=== PATIENT | female | born 1935 | race Caucasian/White ===

== ENCOUNTER → 2016-10-13 | Outpatient (CLI) | payer MEDICARE ==
[2016-10-13 12:09] LABS: Blood Urea Nitrogen 15 mg/dL (7-17); Non-African American GFR(MDRD) >60 (>60 ml/min/1.73 sqM)
--- NOTE | 2016-10-13 13:59 | CT ---
EXAMINATION TYPE: CT abdomen pelvis wo/w con DATE OF EXAM: 10/13/2016 1:33 PM REFERENCE: Previous study dated 08/13/2015. HISTORY: R63.4 weight loss, R19.7 diarrhea HISTORY: irregular bowels and abdomen distension for 2-3 years post illness from C-Diff REFERENCE: NONE CT DLP: 2336 mGy Automated exposure control for dose reduction was used. TECHNIQUE: Helical acquisition through the abdomen and pelvis was obtained following the oral ingesti on of with Oral Contrast and with and without the intravenous administration of 100 mL of Omnipaque 3 00. The data was reformatted in axial, coronal and sagittal projections. FINDINGS: There is atelectatic change at the right lung base. There is a partial eventration of the right hemidiaphragm. No pleural or pericardial fluid is seen. The heart is enlarged. Within the abdomen, the liver is enlarged measuring 20 cm. The gallbladder is been removed. There is mild central biliary dilatation. The spleen appears normal. Both adrenal glands appear normal. Both kidneys demonstrate function and appear morphologically normal. The pancreas is unremarkable. There is moderate atheromatous calcification of the visualized arterial tree. There is no significant retroperitoneal, iliac or inguinal adenopathy. The bladder is not distended. The bladder wall appears thickened. This may be secondary to lack of di stention. The uterus and ovaries are not visualized. There is diverticular change in the sigmoid colon. There is mucosal thickening throughout the sigmoid region. I do not see evidence of diverticulitis. The appendix is normal. Small bowel loops are unremarkable. There is no free fluid and no free air identified. There is evidence of mild osteitis pubis. There are degenerative changes within the hips. There is fa cet arthropathy at L5-S1. There is diffuse degenerative disc disease. There is a degenerative grade 1 spondylolisthesis of L5 on S1. IMPRESSION: 1. CARDIOMEGALY. 2. HEPATOMEGALY. 3. BOWEL WALL THICKENING INVOLVING THE SIGMOID COLON. PLEASE CORRELATE CLINICALLY TO EXCLUDE COLITIS. 4. DIVERTICULOSIS OF THE SIGMOID COLON. 5. 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
== END | disposition home or self-care (01) ==
LOC: RADCTMAIN 11:16
PROVIDERS: ATTEND Internal Medicine Geriatric Medicine
DX: K57.30 Diverticulosis of large intestine without perforation or abscess without bleeding (principal); R16.0 Hepatomegaly, not elsewhere classified; Z79.82 Long term (current) use of aspirin
CPT/HCPCS: 82565; 84520; 74178; 36415; Q9967

== ENCOUNTER → 2016-11-21 | Outpatient (CLI) | payer MEDICARE ==
[2016-11-21 11:22] VITALS: BMI 22.1
== END | disposition home or self-care (01) ==
LOC: MNTWWP 10:54
PROVIDERS: ATTEND Internal Medicine Gastroenterology
DX: K58.0 Irritable bowel syndrome with diarrhea (principal)
CPT/HCPCS: 97802

== ENCOUNTER 2017-03-10 15:31 | Emergency (ER) | payer OTHER, MEDICARE ==
[2017-03-10 15:42] VITALS: RESP 18
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
[2017-03-10 17:34] VITALS: BP 112/58; PULSE 61; TEMP 97.6
== END 2017-03-10 17:34 | disposition home or self-care (01) ==
LOC: EC 15:31
DX: S62.306A Unspecified fracture of fifth metacarpal bone, right hand, initial encounter for closed fracture (principal); I48.91 Unspecified atrial fibrillation; E78.5 Hyperlipidemia, unspecified; I10 Essential (primary) hypertension; I25.2 Old myocardial infarction; E07.9 Disorder of thyroid, unspecified; Z95.5 Presence of coronary angioplasty implant and graft; Z98.890 Other specified postprocedural states; Z87.891 Personal history of nicotine dependence; Z79.01 Long term (current) use of anticoagulants; Z79.82 Long term (current) use of aspirin; Z79.899 Other long term (current) drug therapy; Z88.0 Allergy status to penicillin; V89.9XXA Person injured in unspecified vehicle accident, initial encounter; Y92.410 Unspecified street and highway as the place of occurrence of the external cause
CPT/HCPCS: 29125; 70450; 72125; 99285

== ENCOUNTER 2017-12-15 06:19 | Observation (INO) | payer MEDICARE ==
[2017-12-15] MEDS ORDERED: NITROGLYCERIN OINT 1 INCH/GM PACKET TOPICAL STA (06:21)
[2017-12-15] MEDS ORDERED: ASPIRIN 81 MG PO STA (06:21)
--- NOTE | 2017-12-15 06:24 | ED ---
General Adult HPI - General Source: RN notes reviewed <Merrill Bradshaw - Last Filed: 12/15/17 06:29> <Dariel Torres - Last Filed: 12/15/17 10:36> - General Stated complaint: Chest Pain Time Seen by Provider: 12/15/17 06:20 - History of Present Illness Initial comments: This is an 82-year-old female with past medical history significant for high cholesterol high blood pressure and a previous stent. Patient also has atrial fibrillation and she is on Coumadin. Patient comes in today because she had chest pain at home last month 15 minutes. Patient states she was also mildly short of breath and clammy when it occurred. Patient states the last time she had chest pain and needed a stent her symptoms were very mild as well. Patient denies any abdominal pain patient denies any vomiting but he is mildly nauseated. Patient denies any recent fever chills or cough. Patient denies headache patient denies numbness weakness. Patient denies lightheadedness dizziness or near syncopal episode. (Merrill Bradshaw) - Related Data Home Medications Medication Instructions Recorded Confirmed Atenolol [Tenormin] 25 mg PO QAM 12/01/13 03/10/17 Butalb/Acetaminophen/Caffeine 1 tab PO Q6H PRN 12/01/13 03/10/17 [Fioricet 50-325-40 mg Tablet] Levothyroxine Sodium [Synthroid] 50 mcg PO QAM 12/01/13 03/10/17 Simvastatin [Zocor] 20 mg PO HS 12/01/13 03/10/17 Warfarin [Coumadin] 5 mg PO SUMOTUWEFRSA 12/01/13 03/10/17 Gabapentin [Neurontin] 100 mg PO BID 07/20/15 03/10/17 Aspirin 81 mg PO QAM 08/09/15 03/10/17 Famotidine [Pepcid] 20 mg PO HS 08/09/15 03/10/17 Warfarin [Coumadin] 2.5 mg PO TH 08/09/15 03/10/17 Propafenone Sr [Rythmol Sr] 225 mg PO BID 03/10/17 03/10/17 Allergies Allergy/AdvReac Type Severity Reaction Status Date / Time Penicillins Allergy Anaphylaxis Verified 03/10/17 16:16 Review of Systems ROS Other: All systems not noted in ROS Statement are negative. <Merrill Bradshaw - Last Filed: 12/15/17 06:29> ROS Other: All systems not noted in ROS Statement are negative. <Dariel Torres - Last Filed: 12/15/17 10:36> ROS Statement: Those systems with pertinent positive or pertinent negative responses have been documented in the HPI. Past Medical History Past Medical History: Atrial Fibrillation, Hyperlipidemia, Hypertension, Myocardial Infarction ([place]), Thyroid Disorder Last Myocardial Infarction Date:: 2006 History of Any Multi-Drug Resistant Organisms: None Reported Past Surgical History: Cholecystectomy, Heart Catheterization With Stent, Hysterectomy, Orthopedic Surgery Additional Past Surgical History / Comment(s): left foot reconstruction surgery , pubic vaginal sling, partial hysterectomy, colonoscopy. Date of Last Stent Placement:: 2006 Past Psychological History: No Psychological Hx Reported Smoking Status: Former smoker Past Alcohol Use History: None Reported Past Drug Use History: None Reported - Past Family History Mother Family Medical History: Coronary Artery Disease (CAD) (Mother at age 94 from CAD) Father Family Medical History: Coronary Artery Disease (CAD) (Father at age of 87 from CAD) Son(s) Family Medical History: COPD (Patient has one son with COPD) Additional Family Medical History / Comment(s): Her maternal grandfather at age 54 from [place] <Merrill Bradshaw - Last Filed: 12/15/17 06:29> General Exam <Merrill Bradshaw - Last Filed: 12/15/17 06:29> <Dariel Torres - Last Filed: 12/15/17 10:36> - General Exam Comments Initial Comments: GENERAL: Patient is well-developed and well-nourished. Patient is nontoxic and well- hydrated and is in mild distress. ENT: Neck is soft and supple. No significant lymphadenopathy is noted. Oropharynx is clear. Moist mucous membranes. Neck has full range of motion without eliciting any pain. EYES: The sclera were anicteric and conjunctiva were pink and moist. Extraocular movements were intact and pupils were equal round and reactive to light. Eyelids were unremarkable. PULMONARY: Unlabored respirations. Good breath sounds bilaterally. No audible rales rhonchi or wheezing was noted. CARDIOVASCULAR: There is a regular rate and rhythm without any murmurs gallops or rubs. ABDOMEN: Soft and nontender with normal bowel sounds. No palpable organomegaly was noted. There is no palpable pulsatile mass. SKIN: Skin is clear with no lesions or rashes and otherwise unremarkable. NEUROLOGIC: Patient is alert and oriented x3. Cranial nerves II through XII are grossly intact. Motor and sensory are also intact. Normal speech, volume and content. Symmetrical smile. MUSCULOSKELETAL: Normal extremities with adequate strength and full range of motion. LYMPHATICS: No significant lymphadenopathy is noted PSYCHIATRIC: Normal psychiatric evaluation. Normal interpersonal interactions appears functionally intact in deals appropriately with others. No signs of depression. No signs of anxiety. (Merrill Bradshaw) Vital Signs 12/15/17 12/15/17 06:20 07:13 Temperature 98.2 F Pulse Rate 71 60 Respiratory 18 16 Rate Blood Pressure 195/79 144/67 O2 Sat by Pulse 96 93 L Oximetry Medical Decision Making <Merrill Bradshaw - Last Filed: 12/15/17 06:29> - Lab Data Result diagrams: 12/15/17 06:34 12/15/17 06:34 <Dariel Torres - Last Filed: 12/15/17 10:36> - Medical Decision Making EKG shows sinus bradycardia at 59 bpm ME interval is 218 QRS is 114 QT interval is 442 QTC is 437. EKG shows no ST segment elevation or depression. Dr. Torres will be taking over the care of this patient at 7 AM (Merrill Bradshaw) 82-year-old presenting with chest pain. Patient's laboratory studies are reviewed, normal CBC, INR mildly subtherapeutic at 1.7, troponin is negative 2. Chest x-ray shows cardiomegaly with no focal pneumonia or acute findings. Patient is chest pain-free on reevaluation, she will be admitted for serial enzymes and cardiology consultation. (Dariel Torres) - Lab Data Lab Results 12/15/17 12/15/17 12/15/17 Range/Units 06:34 06:34 06:34 WBC 7.7 (3.8-10.6) k/uL RBC 3.98 (3.80-5.40) m/uL Hgb 12.5 (11.4-16.0) gm/dL Hct 36.5 (34.0-46.0) % MCV 91.6 (80.0-100.0) fL MCH 31.5 (25.0-35.0) pg MCHC 34.4 (31.0-37.0) g/dL RDW 12.6 (11.5-15.5) % Plt Count 246 (150-450) k/uL Neutrophils % 60 % Lymphocytes % 25 % Monocytes % 9 % Eosinophils % 3 % Basophils % 0 % Neutrophils # 4.6 (1.3-7.7) k/uL Lymphocytes # 1.9 (1.0-4.8) k/uL Monocytes # 0.7 (0-1.0) k/uL Eosinophils # 0.3 (0-0.7) k/uL Basophils # 0.0 (0-0.2) k/uL PT (9.0-12.0) sec INR (<1.2) APTT (22.0-30.0) sec Sodium 140 (137-145) mmol/L Potassium 4.1 (3.5-5.1) mmol/L Chloride 104 (98-107) mmol/L Carbon Dioxide 26 (22-30) mmol/L Anion Gap 10 mmol/L BUN 21 H (7-17) mg/dL Creatinine 0.67 (0.52-1.04) mg/dL Est GFR (CKD-EPI)AfAm >90 (>60 ml/min/1.73 sqM) Est GFR (CKD-EPI)NonAf 83 (>60 ml/min/1.73 sqM) Glucose 98 (74-99) mg/dL Calcium 9.2 (8.4-10.2) mg/dL Magnesium 2.2 (1.6-2.3) mg/dL Total Bilirubin 0.3 (0.2-1.3) mg/dL AST 27 (14-36) U/L ALT 31 (9-52) U/L Alkaline Phosphatase 93 (38-126) U/L Total Creatine Kinase 144 H (30-135) U/L CK-MB (CK-2) 2.2 (0.0-2.4) ng/mL CK-MB (CK-2) Rel Index 1.5 Troponin I <0.012 (0.000-0.034) ng/mL Total Protein 6.7 (6.3-8.2) g/dL Albumin 4.0 (3.5-5.0) g/dL 12/15/17 12/15/17 Range/Units 06:34 09:23 WBC (3.8-10.6) k/uL RBC (3.80-5.40) m/uL Hgb (11.4-16.0) gm/dL Hct (34.0-46.0) % MCV (80.0-100.0) fL MCH (25.0-35.0) pg MCHC (31.0-37.0) g/dL RDW (11.5-15.5) % Plt Count (150-450) k/uL Neutrophils % % Lymphocytes % % Monocytes % % Eosinophils % % Basophils % % Neutrophils # (1.3-7.7) k/uL Lymphocytes # (1.0-4.8) k/uL Monocytes # (0-1.0) k/uL Eosinophils # (0-0.7) k/uL Basophils # (0-0.2) k/uL PT 15.3 H (9.0-12.0) sec INR 1.7 H (<1.2) APTT 27.4 (22.0-30.0) sec Sodium (137-145) mmol/L Potassium (3.5-5.1) mmol/L Chloride (98-107) mmol/L Carbon Dioxide (22-30) mmol/L Anion Gap mmol/L BUN (7-17) mg/dL Creatinine (0.52-1.04) mg/dL Est GFR (CKD-EPI)AfAm (>60 ml/min/1.73 sqM) Est GFR (CKD-EPI)NonAf (>60 ml/min/1.73 sqM) Glucose (74-99) mg/dL Calcium (8.4-10.2) mg/dL Magnesium (1.6-2.3) mg/dL Total Bilirubin (0.2-1.3) mg/dL AST (14-36) U/L ALT (9-52) U/L Alkaline Phosphatase (38-126) U/L Total Creatine Kinase (30-135) U/L CK-MB (CK-2) (0.0-2.4) ng/mL CK-MB (CK-2) Rel Index Troponin I <0.012 (0.000-0.034) ng/mL Total Protein (6.3-8.2) g/dL Albumin (3.5-5.0) g/dL Disposition <Merrill Bradshaw - Last Filed: 12/15/17 06:29> Is patient prescribed a controlled substance at d/c from ED?: No Decision to Admit Reason: Admit from EC Decision Date: 12/15/17 Decision Time: 10:36 <Dariel Torres - Last Filed: 12/15/17 10:36> Clinical Impression: Chest pain Disposition: ADMITTED IP TO THIS HOSP Condition: Stable Referrals: Orlando Vance MD [Primary Care Provider] - 1-2 days
[2017-12-15 06:48] LABS: Basophils % (A) 0 %; Eosinophils # (A) 0.3 k/uL (0-0.7); Eosinophils % (A) 3 %; HCT 36.5 % (34.0-46.0); HGB 12.5 gm/dL (11.4-16.0); Lymphocytes # (A) 1.9 k/uL (1.0-4.8); Lymphocytes % (A) 25 %; MCH 31.5 pg (25.0-35.0); MCHC 34.4 g/dL (31.0-37.0); MCV 91.6 fL (80.0-100.0); Monocytes # (A) 0.7 k/uL (0-1.0); Monocytes % (A) 9 %; Neutrophils # (A) 4.6 k/uL (1.3-7.7); Neutrophils % (A) 60 %; Platelet Count 246 k/uL (150-450); RBC 3.98 m/uL (3.80-5.40); RDW 12.6 % (11.5-15.5); WBC 7.7 k/uL (3.8-10.6)
--- NOTE | 2017-12-15 06:54 | XR ---
EXAMINATION TYPE: XR chest 2V DATE OF EXAM: 12/15/2017 COMPARISON: 12/01/2013 HISTORY: Chest pain TECHNIQUE: Frontal and lateral views of the chest are obtained. FINDINGS: Heart is enlarged. There is no heart failure. There is some mild reticular density in the lingula left upper lobe. Thoracic aorta is atheromatous. There are chest leads. There is no pleural e ffusion. IMPRESSION: Cardiomegaly. No active cardiopulmonary disease. Mild lingula scarring is unchanged.
[2017-12-15 06:58] LABS: INR 1.7 (<1.2); Partial Thromboplastin Time 27.4 sec (22.0-30.0); Prothrombin Time 15.3 sec (9.0-12.0)
[2017-12-15 07:15] LABS: Creatine Kinase 144 U/L (30-135)
[2017-12-15 07:16] LABS: ALT 31 U/L (9-52); AST 27 U/L (14-36); Alkaline Phosphatase 93 U/L (38-126); Anion Gap 10 mmol/L; Blood Urea Nitrogen 21 mg/dL (7-17); Calcium 9.2 mg/dL (8.4-10.2); Carbon Dioxide 26 mmol/L (22-30); Chloride 104 mmol/L (98-107); Glucose 98 mg/dL (74-99); Magnesium 2.2 mg/dL (1.6-2.3); Potassium 4.1 mmol/L (3.5-5.1); Sodium 140 mmol/L (137-145); Total Bilirubin 0.3 mg/dL (0.2-1.3); Total Protein 6.7 g/dL (6.3-8.2)
[2017-12-15 07:27] LABS: Creatine Kinase MB 2.2 ng/mL (0.0-2.4); Troponin I <0.012 ng/mL (0.000-0.034)
[2017-12-15] MEDS ORDERED: NALOXONE 0.4 MG/ML 1 ML VIAL IV PRN (10:31)
[2017-12-15] MEDS ORDERED: BUTALB/APAP/CAFF 50-325-40MG TAB PO PRN ×2 (10:32→16:56)
[2017-12-15 12:24] VITALS: BMI 23.6
[2017-12-15] MEDS: GABAPENTIN 100 MG CAP PO SCH ×3 (12:28→20:39)
[2017-12-15] MEDS: PROPAFENONE 150 MG TAB PO SCH ×3 (12:29→20:40)
[2017-12-15] MEDS: LEVOTHYROXINE 50 MCG TAB PO SCH (12:29)
[2017-12-15] MEDS: ATENOLOL 25 MG TAB PO SCH (12:33)
[2017-12-15] MEDS: HYDROcodone/APAP 10-325MG 1 EACH TAB PO PRN ×3 (12:33→22:24)
[2017-12-15 12:50] LABS: Creatine Kinase 126 U/L (30-135)
[2017-12-15 13:03] LABS: Creatine Kinase MB 1.8 ng/mL (0.0-2.4); Troponin I <0.012 ng/mL (0.000-0.034)
--- NOTE | 2017-12-15 14:34 | P.HPIM ---
History of Present Illness H&P Date: 12/15/17 This is a 80-year-old female one of Dr. Vance with a previous medical history significant for coronary artery disease status post stent placement back in 2006 of circumflex , atrial fibrillation, hyperlipidemia, hypertension and hypertensive cardiovascular disease, hypothyroidism, patient was in her usual state of health until yesterday 12 AM midnight and patient started having an acute sudden chest pain, midsternal in location that lasted for 15 minutes. Patient describes it as shocklike sensation which were got better by itself associated with clammy hands and shortness of breath. Patient states she had similar symptoms when she had a stent placed in 2006. She denies any cough or shortness of breath for the past week denies any recent fever, headache or numbness or tingling of the lower extremity. Troponin 3 negative in the ER. EKG suggested chronic changes of left ventricular hypertrophy with first-degree AV block. Patient states she had stress test done 3 weeks ago but is not sure of the results. Cardiology has been consulted patient will be Nothing by mouth after midnight for possible cardiac cath tomorrow. Review of Systems Constitutional: Denies chills, Denies fever, Denies lethargy, Denies malaise, Denies poor appetite, Denies weakness, Denies weight loss Eyes: denies decreased vision, denies diplopia, denies discharge, denies pain Ears: deny: decreased hearing Ears, nose, mouth and throat: Denies dental pain, Denies headache, Denies nasal discharge, Denies nose pain Cardiovascular: Endorses chest pain, Denies decreased exercise tolerance, Denies edema, Denies high blood pressure, endorses irregular heart beat, Denies palpitations, Denies paroxysmal nocturnal dyspnea, Denies rapid heart beat, Denies shortness of breath Respiratory: Denies congestion, Denies cough, Denies cough with sputum, Denies dyspnea, Denies home oxygen, Denies wheezing Gastrointestinal: Denies abdominal pain, Denies change in bowel habits, Denies coffee ground emesis, Denies early satiety, Denies excessive gas, Denies heartburn, Denies hematemesis, Denies hematochezia, Denies loss of appetite, Denies nausea, Denies vomiting Genitourinary: Denies dysuria, Denies flank pain, Denies kidney stones, Denies menorrhagia, Denies urgency, Denies urinary frequency Musculoskeletal: Denies gait dysfunction, Denies limitation of motion, Denies morning stiffness, Denies muscle cramps Integumentary: Denies rash, Denies wounds, Denies brittle nails, Denies change in hair/nails, Denies darkening of skin Neurological: Denies balance difficulties, Denies change in speech, Denies double vision, Denies gait dysfunction, Denies loss of vision, Denies motor disturbance, Denies numbness, Denies paralysis, Denies paresthesias, Denies seizures Psychiatric: Denies anxiety, Denies depression Endocrine: Denies excessive sweating, Denies excessive thirst, Denies high blood sugars, Denies palpitations Hematologic/Lymphatic: Denies easy bruising, Denies lymphadenopathy Past Medical History Past Medical History: Atrial Fibrillation, Hyperlipidemia, Hypertension, Myocardial Infarction ([place]), Thyroid Disorder Additional Past Medical History / Comment(s): IBS, acute coloitis, 3 feces transplants at [facility] Last Myocardial Infarction Date:: 2006 History of Any Multi-Drug Resistant Organisms: C-DIFF Date of last positivie culture/infection: 2014 MDRO Source:: stool Past Surgical History: Cholecystectomy, Heart Catheterization With Stent, Hysterectomy, Orthopedic Surgery Additional Past Surgical History / Comment(s): left foot reconstruction surgery , pubic vaginal sling, partial hysterectomy, colonoscopy. 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 She denies medical marijuana, marijuana, street drug or alcohol use. Patient is currently living alone. Past Drug Use History: None Reported - Past Family History Mother Family Medical History: Coronary Artery Disease (CAD) Father Family Medical History: Coronary Artery Disease (CAD) Son(s) Family Medical History: COPD Additional Family Medical History / Comment(s): Her maternal grandfather at age 54 from [place] Medications and Allergies Home Medications Medication Instructions Recorded Confirmed Type Atenolol [Tenormin] 25 mg PO QAM 12/01/13 12/15/17 History Butalb/Acetaminophen/Caffeine 1 tab PO Q6H PRN 12/01/13 12/15/17 History [Fioricet 50-325-40 mg Tablet] Levothyroxine Sodium [Synthroid] 50 mcg PO QAM 12/01/13 12/15/17 History Simvastatin [Zocor] 20 mg PO HS 12/01/13 12/15/17 History Warfarin [Coumadin] 5 mg PO SUMOTUWEFRSA 12/01/13 03/10/17 History Gabapentin [Neurontin] 100 mg PO TID 07/20/15 12/15/17 History Famotidine [Pepcid] 20 mg PO HS 08/09/15 12/15/17 History Warfarin [Coumadin] 2.5 mg PO TH 08/09/15 03/10/17 History Propafenone Sr [Rythmol Sr] 225 mg PO BID 03/10/17 12/15/17 History HYDROcodone/APAP 10-325MG [[place] 1 tab PO Q6HR PRN 12/15/17 12/15/17 History 10-325] Allergies Allergy/AdvReac Type Severity Reaction Status Date / Time amoxicillin Allergy Anaphylaxis Verified 12/15/17 12:25 Penicillins Allergy Anaphylaxis Verified 03/10/17 16:16 Physical Exam Vitals: Vital Signs Temp Pulse Pulse Resp BP BP Pulse Ox 12/15/17 11:33 99.0 F 66 18 148/67 95 12/15/17 11:00 98.1 F 58 L 20 141/70 98 12/15/17 07:13 60 16 144/67 93 L 12/15/17 06:20 98.2 F 71 18 195/79 96 Intake and Output 12/14/17 12/15/17 12/15/17 22:59 06:59 14:59 Intake Total 240 Balance 240 Intake: Oral 240 Other: Weight 72.575 kg 72.575 kg - Constitutional General appearance: cooperative, no acute distress, obese - EENT Eyes: anicteric sclerae, PERRLA, normal appearance ENT: hearing grossly normal - Neck Neck: no lymphadenopathy, normal ROM, no other, no rigidity, no stridor, no thyromegaly - Respiratory Respiratory: bilateral: CTA, negative: diminished, dullness, rales, rhonchi - Cardiovascular Rhythm: regular Heart sounds: normal: S1, S2 Abnormal Heart Sounds: no systolic murmur, no diastolic murmur, no rub, no S3 Gallop, no S4 Gallop, no click, no other - Gastrointestinal General gastrointestinal: normal bowel sounds, soft - Integumentary Integumentary: no rash - Neurologic Neurologic: CNII-XII intact - Musculoskeletal Musculoskeletal: gait normal, strength equal bilaterally - Psychiatric Psychiatric: A&O x's 3, appropriate affect Results CBC & Chem 7: 18 06:34 18 06:34 Labs: Abnormal Lab Results - Last 24 Hours (Table) 12/15/17 12/15/17 12/15/17 Range/Units 06:34 06:34 06:34 PT 15.3 H (9.0-12.0) sec INR 1.7 H (<1.2) BUN 21 H (7-17) mg/dL Total Creatine Kinase 144 H (30-135) U/L Thrombosis Risk Factor Assmnt - DVT/VTE Prophylaxis DVT/VTE Prophylaxis: Pharmacologic Prophylaxis ordered - Choose All That Apply Any of the Below Risk Factors Present?: Yes Each Risk Factor Represents 3 Points: Age 75 years or older Thrombosis Risk Factor Assessment Total Risk Factor Score: 3 Thrombosis Risk Factor Assessment Level: Moderate Risk Assessment and Plan Plan: 1. Acute chest pain likely cardiac . Patient has risk factors including former smoking, hypertension, hyperlipidemia, family history of coronary artery disease in mom and dad with recent cardiac cath results of which are unknown. Patient was planning to see Dr. Lowe in 1 week. Continue aspirin, atenolol, atorvastatin. Cardiology consult. Nothing by mouth after midnight. Recent cardiac cardiac cath in 2006 suggest moderate disease in the LAD, circumflex artery was stented during that cardiac cath. 2. History of coronary artery disease status post PCI. Continue the patient on atenolol 25 mg orally once every day, simvastatin 20 mg orally bedtime at home. 3. Atrial fibrillation. Continue Coumadin 5 minute gram of the day and 2.5 mg PT and INR is subtherapeutic. Continue propafenone 225 mg by mouth twice every day. 4. Hyperlipidemia. Continue simvastatin 20 mg orally at bedtime. 5. Hypothyroidism. Continue Synthroid 50 g orally once every day. 6. Hypertension and hypertensive cardiovascular disease. Continue atenolol 25 mg orally once every day. 7. Chronic low back pain with chronic pain syndrome. Continue [place] 7.5/325 one tablet every 4 hours as needed. We will continue gabapentin 100 mg orally 3 times every day. 8. Chronic headache. h old Fioricet. 9. DVT prophylaxis. Already on Coumadin. 10. GI prophylaxis. Pepcid 20 mg orally twice every day. 11. Full code.
[2017-12-15] MEDS ORDERED: ACETAMINOPHEN TAB 325 MG TAB PO PRN (16:04)
[2017-12-15] MEDS ORDERED: WARFARIN 5 MG TAB PO SCH (18:00)
[2017-12-15 18:38] LABS: Creatine Kinase 122 U/L (30-135)
[2017-12-15 18:51] LABS: Creatine Kinase MB 1.7 ng/mL (0.0-2.4); Troponin I <0.012 ng/mL (0.000-0.034)
[2017-12-15] MEDS ORDERED: FAMOTIDINE 20 MG TAB PO SCH (21:00)
[2017-12-15] MEDS ORDERED: GABAPENTIN 100 MG CAP PO SCH (21:00)
[2017-12-15] MEDS ORDERED: ATORVASTATIN 10 MG TAB PO SCH (21:00)
[2017-12-15] MEDS ORDERED: PROPAFENONE 150 MG TAB PO SCH (22:00)
[2017-12-16] MEDS: HYDROcodone/APAP 10-325MG 1 EACH TAB PO PRN (01:57)
[2017-12-16] MEDS ORDERED: LEVOTHYROXINE 50 MCG TAB PO SCH (06:30)
[2017-12-16] MEDS: LEVOTHYROXINE 50 MCG TAB PO SCH (06:57)
[2017-12-16 08:04] LABS: Basophils % (A) 1 %; Eosinophils # (A) 0.2 k/uL (0-0.7); Eosinophils % (A) 3 %; HCT 39.6 % (34.0-46.0); HGB 13.4 gm/dL (11.4-16.0); Lymphocytes # (A) 2.3 k/uL (1.0-4.8); Lymphocytes % (A) 34 %; MCH 31.2 pg (25.0-35.0); MCHC 33.8 g/dL (31.0-37.0); MCV 92.2 fL (80.0-100.0); Monocytes # (A) 0.7 k/uL (0-1.0); Monocytes % (A) 10 %; Neutrophils # (A) 3.3 k/uL (1.3-7.7); Neutrophils % (A) 50 %; Platelet Count 265 k/uL (150-450); RDW 12.5 % (11.5-15.5); WBC 6.7 k/uL (3.8-10.6)
[2017-12-16 08:09] LABS: INR 2.2 (<1.2)
[2017-12-16 08:16] LABS: ALT 33 U/L (9-52); AST 27 U/L (14-36); Alkaline Phosphatase 91 U/L (38-126); Anion Gap 10 mmol/L; Blood Urea Nitrogen 13 mg/dL (7-17); Calcium 9.6 mg/dL (8.4-10.2); Carbon Dioxide 25 mmol/L (22-30); Chloride 105 mmol/L (98-107); Glucose 95 mg/dL (74-99); Potassium 4.6 mmol/L (3.5-5.1); Sodium 140 mmol/L (137-145); Total Bilirubin 0.3 mg/dL (0.2-1.3); Total Protein 6.7 g/dL (6.3-8.2)
[2017-12-16 08:23] VITALS: RESP 18
[2017-12-16] MEDS: ATENOLOL 25 MG TAB PO SCH (08:40)
[2017-12-16] MEDS: GABAPENTIN 100 MG CAP PO SCH (08:40)
[2017-12-16] MEDS: PROPAFENONE 150 MG TAB PO SCH (08:40)
[2017-12-16] MEDS ORDERED: ATENOLOL 25 MG TAB PO SCH (09:00)
[2017-12-16] MEDS ORDERED: ASPIRIN 81 MG PO SCH (09:00)
--- NOTE | 2017-12-16 10:20 | P.CRDCN ---
History of Present Illness History of present illness: Patient admitted with heaviness in his chest with normal cardiac enzymes normal ECG and some fluttering in the chest. Recent fall cardiac stress test in the office was normal. No evidence for atrial fibrillation. She will go home today in follow-up as an outpatient were Dr. Lowe. Please see full dictation by nurse practitioner Past Medical History Past Medical History: Atrial Fibrillation, Hyperlipidemia, Hypertension, Myocardial Infarction ([place]), Thyroid Disorder Additional Past Medical History / Comment(s): IBS, acute coloitis, 3 feces transplants at [facility] Last Myocardial Infarction Date:: 2006 History of Any Multi-Drug Resistant Organisms: C-DIFF Date of last positivie culture/infection: 2014 MDRO Source:: stool Past Surgical History: Cholecystectomy, Heart Catheterization With Stent, Hysterectomy, Orthopedic Surgery Additional Past Surgical History / Comment(s): left foot reconstruction surgery , pubic vaginal sling, partial hysterectomy, colonoscopy. 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 She denies medical marijuana, marijuana, street drug or alcohol use. Patient is currently living alone. Past Drug Use History: None Reported - Past Family History Mother Family Medical History: Coronary Artery Disease (CAD) Father Family Medical History: Coronary Artery Disease (CAD) Son(s) Family Medical History: COPD Additional Family Medical History / Comment(s): Her maternal grandfather at age 54 from [place] Medications and Allergies Home Medications Medication Instructions Recorded Confirmed Type Atenolol [Tenormin] 25 mg PO QAM 12/01/13 12/15/17 History Butalb/Acetaminophen/Caffeine 1 tab PO Q6H PRN 12/01/13 12/15/17 History [Fioricet 50-325-40 mg Tablet] Levothyroxine Sodium [Synthroid] 50 mcg PO QAM 12/01/13 12/15/17 History Simvastatin [Zocor] 20 mg PO HS 12/01/13 12/15/17 History Warfarin [Coumadin] 5 mg PO SUMOTUWEFRSA 12/01/13 03/10/17 History Gabapentin [Neurontin] 100 mg PO TID 07/20/15 12/15/17 History Famotidine [Pepcid] 20 mg PO HS 08/09/15 12/15/17 History Warfarin [Coumadin] 2.5 mg PO TH 08/09/15 03/10/17 History Propafenone Sr [Rythmol Sr] 225 mg PO BID 03/10/17 12/15/17 History HYDROcodone/APAP 10-325MG [[place] 1 tab PO Q6HR PRN 12/15/17 12/15/17 History 10-325] Allergies Allergy/AdvReac Type Severity Reaction Status Date / Time amoxicillin Allergy Anaphylaxis Verified 12/15/17 12:25 Penicillins Allergy Anaphylaxis Verified 03/10/17 16:16 Physical Exam Vitals: Vital Signs Temp Pulse Pulse Resp BP BP Pulse Ox 12/16/17 08:00 18 12/16/17 07:50 98.8 F 58 L 18 151/73 94 L 12/16/17 04:00 58 L 16 12/16/17 00:00 50 L 16 12/15/17 23:58 98.2 F 58 L 16 138/60 96 12/15/17 20:00 97.9 F 60 18 162/88 96 12/15/17 15:34 97.9 F 53 L 18 116/60 94 L 12/15/17 11:33 99.0 F 66 18 148/67 95 12/15/17 11:00 98.1 F 58 L 20 141/70 98 Intake and Output 12/15/17 12/16/17 12/16/17 22:59 06:59 14:59 Intake Total 676 500 240 Balance 676 500 240 Intake: Oral 476 500 240 Other 200 Other: Voiding Method Toilet Toilet Toilet # Voids 3 Results 12/16/17 07:16 12/16/17 07:16 Cardiac Enzymes 12/15/17 12/15/17 12/16/17 Range/Units 11:49 18:01 07:16 AST 27 (14-36) U/L CK-MB (CK-2) 1.8 1.7 (0.0-2.4) ng/mL Troponin I <0.012 <0.012 (0.000-0.034) ng/mL Coagulation 12/16/17 Range/Units 07:16 PT 20.0 H (9.0-12.0) sec CBC 12/16/17 Range/Units 07:16 WBC 6.7 (3.8-10.6) k/uL RBC 4.30 (3.80-5.40) m/uL Hgb 13.4 (11.4-16.0) gm/dL Hct 39.6 (34.0-46.0) % Plt Count 265 (150-450) k/uL Comprehensive Metabolic Panel 12/16/17 Range/Units 07:16 Sodium 140 (137-145) mmol/L Potassium 4.6 (3.5-5.1) mmol/L Chloride 105 (98-107) mmol/L Carbon Dioxide 25 (22-30) mmol/L BUN 13 (7-17) mg/dL Creatinine 0.66 (0.52-1.04) mg/dL Glucose 95 (74-99) mg/dL Calcium 9.6 (8.4-10.2) mg/dL AST 27 (14-36) U/L ALT 33 (9-52) U/L Alkaline Phosphatase 91 (38-126) U/L Total Protein 6.7 (6.3-8.2) g/dL Albumin 4.0 (3.5-5.0) g/dL Current Medications Generic Name Dose Route Start Last Admin Trade Name Freq PRN Reason Stop Dose Admin Acetaminophen 650 mg 12/15/17 16:04 12/15/17 16:22 Tylenol Tab PO 650 mg Q6HR PRN Administration Pain Scale 1 to 3 Acetaminophen/Butalbital/Caffeine 1 each 12/15/17 16:56 12/15/17 17:40 Fioricet 50-325-40 PO 1 each Q6HR PRN Administration Headache Hydrocodone Bitart/Acetaminophen 1 each 12/15/17 11:39 12/16/17 01:57 [place] 10 PO 1 each Q6HR PRN Administration Pain Scale 4-10 Aspirin 81 mg 12/16/17 09:00 12/16/17 08:41 Aspirin PO 81 mg QAM KARIE Administration Atenolol 25 mg 12/15/17 11:45 12/16/17 08:40 Tenormin PO 25 mg QAM KARIE Administration Atorvastatin Calcium 10 mg 12/15/17 21:00 12/15/17 20:39 Lipitor PO 10 mg HS KARIE Administration Famotidine 20 mg 12/15/17 21:00 12/15/17 20:39 Pepcid PO 20 mg HS KARIE Administration Gabapentin 100 mg 12/15/17 11:45 12/16/17 08:40 Neurontin PO 100 mg TID KARIE Administration Levothyroxine Sodium 50 mcg 12/15/17 11:45 12/16/17 06:57 Synthroid PO 50 mcg QAM@0630 KARIE Administration Naloxone HCl 0.2 mg 12/15/17 10:31 Narcan IV Q2M PRN Opioid Reversal Propafenone HCl 150 mg 12/15/17 11:45 12/16/17 08:40 Rythmol PO 150 mg TID KARIE Administration Warfarin Sodium 2.5 mg 12/20/17 18:00 Coumadin PO Th@1800 KARIE Warfarin Sodium 5 mg 12/15/17 18:00 12/15/17 17:39 Coumadin PO 5 mg [id number] KARIE Administration Intake and Output 12/15/17 12/16/17 12/16/17 22:59 06:59 14:59 Intake Total 676 500 240 Balance 676 500 240 Intake: Oral 476 500 240 Other 200 Other: Voiding Method Toilet Toilet Toilet # Voids 3 12/16/17 07:16 12/16/17 07:16
--- NOTE | 2017-12-16 10:22 | P.CRDCN ---
History of Present Illness History of present illness: This is a pleasant 82-year-old female past medical history significant for coronary artery disease status post angioplasty of the circumflex in 2006, paroxysmal atrial fibrillation, dyslipidemia, hypertension and hypothyroidism. We are asked to see her in consultation for symptoms of chest discomfort. She follows with Dr. Lowe in the office. She states on Sunday evening around 1:00 in the morning she felt a discomfort in the midsternal region radiating around the left breast. It is described as a very mild but sharp fluttering type sensation. She does have a history of paroxysmal atrial fibrillation and she is very confident and the fact that this was not atrial fibrillation. She states she has gone in and out of A. fib in the past and this did not feel similar to that at all. She denies associated radiation of the pain to the arms back neck or jaw. She denies shortness of breath, nausea, vomiting, palpitations, dizziness or. Symptoms were often on between 1:00 and 5:00 in the morning. She did become diaphoretic at one point. She was up and ambulatory around the house and the pain seemed the same with no intensifying with exertion. The pain has since subsided with no specific alleviating factors and she's been chest pain-free since admission. EKG reveals sinus mechanism with first-degree AV block with no acute ST or T- wave abnormalities. Telemetry tracings have been unremarkable reveals sinus mechanism. Chest x-ray reveals cardiomegaly with no acute cardiopulmonary process. Laboratory data reviewed, cardiac enzymes negative 4, hemoglobin 13.4, platelets 265, INR 2.2, sodium 140, potassium 4.6, magnesium 2.2. Current cardiac medications include Rythmol 225 mg twice a day, Coumadin, atenolol 25 mg daily and simvastatin 20 mg daily. She also takes Fioricet, Pepcid, Neurontin, [place] and Synthroid. She recently underwent Lexiscan stress test in the office September 16 which was negative for reversible cardiac ischemia with evidence of fixed defect. Most recent echocardiogram performed in the office September 2016 reveals preserved left ventricular systolic function with ejection fraction 50% with mildly calcified aortic valve, mild mitral regurgitation and moderate aortic regurgitation. At the time of my exam: CONSTITUTIONAL: Denies fever. Denies chills. EYES: Denies blurred vision. Denies vision changes. Denies eye pain. EARS, NOSE, MOUTH & THROAT: Denies headache. Denies sore throat. Denies ear pain. CARDIOVASCULAR: Denies chest pain. Denies shortness of breath. Denies orthopnea. Denies PND. Denies palpitations. RESPIRATORY: Denies cough. GASTROINTESTINAL: Denies abdominal pain. Denies diarrhea. Denies constipation. Denies nausea. Denies vomiting. MUSCULOSKELETAL: Denies myalgias. INTEGUMENTARY: Denies pruitis. Denies rash. NEUROLOGIC: Denies numbness. Denies tingling. Denies weakness. PSYCHIATRIC: Denies anxiety. Denies depression. ENDOCRINE: Denies fatigue. Denies weight change. Denies polydipsia. Denies polyurina. GENITOURINARY: Denies burning, hematuria or urgency with micturation. HEMATOLOGIC: Denies history of anemia. Denies bleeding. Blood pressure 138/60 heart rate 58 afebrile maintaining oxygen saturations on room air GENERAL: This is a 82-year-old female in no apparent distress at the time of my examination. HEENT: Head is atraumatic, normocephalic. Pupils are equal, round. Sclerae anicteric. Conjunctivae are clear. Mucous membranes of the mouth are moist. Neck is supple. There is no jugular venous distention. No carotid bruit is heard. LUNGS: Clear to auscultation no wheezes, rales or rhonchi. No chest wall tenderness is noted on palpation or with deep breathing. HEART: Regular rate and rhythm with systolic murmur at the base, no rubs or gallops. S1 and S2 heard. ABDOMEN: Soft, nontender. Bowel sounds are heard. No organomegaly noted. EXTREMITIES: No evidence of peripheral edema and no calf tenderness noted. VASCULAR: Radial and dorsalis pedis pulses palpated, no evidence of clubbing. NEUROLOGIC: Patient is awake, alert and oriented x3. ASSESSMENT 1. Chest pain, atypical. An acute coronary event has been ruled out with no EKG evidence of ischemia and normal cardiac enzymes. 2. Paroxysmal atrial fibrillation on long-term anticoagulation with Coumadin currently maintaining sinus mechanism 3. Dyslipidemia 4. Hypertension PLAN Recent Lexiscan stress test 11/13/2017 in the office. Stable from a cardiac perspective. No evidence of atrial fibrillation. Follow up with Dr. Lowe at already scheduled appointment 12/21. Thank you kindly for this consultation. Nurse Practitioner note has been reviewed, I agree with a documented findings and plan of care. Patient was seen and examined. Past Medical History Past Medical History: Atrial Fibrillation, Hyperlipidemia, Hypertension, Myocardial Infarction ([place]), Thyroid Disorder Additional Past Medical History / Comment(s): IBS, acute coloitis, 3 feces transplants at [facility] Last Myocardial Infarction Date:: 2006 History of Any Multi-Drug Resistant Organisms: C-DIFF Date of last positivie culture/infection: 2014 MDRO Source:: stool Past Surgical History: Cholecystectomy, Heart Catheterization With Stent, Hysterectomy, Orthopedic Surgery Additional Past Surgical History / Comment(s): left foot reconstruction surgery , pubic vaginal sling, partial hysterectomy, colonoscopy. 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 She denies medical marijuana, marijuana, street drug or alcohol use. Patient is currently living alone. Past Drug Use History: None Reported - Past Family History Mother Family Medical History: Coronary Artery Disease (CAD) Father Family Medical History: Coronary Artery Disease (CAD) Son(s) Family Medical History: COPD Additional Family Medical History / Comment(s): Her maternal grandfather at age 54 from [place] Medications and Allergies Home Medications Medication Instructions Recorded Confirmed Type Atenolol [Tenormin] 25 mg PO QAM 12/01/13 12/15/17 History Butalb/Acetaminophen/Caffeine 1 tab PO Q6H PRN 12/01/13 12/15/17 History [Fioricet 50-325-40 mg Tablet] Levothyroxine Sodium [Synthroid] 50 mcg PO QAM 12/01/13 12/15/17 History Simvastatin [Zocor] 20 mg PO HS 12/01/13 12/15/17 History Warfarin [Coumadin] 5 mg PO SUMOTUWEFRSA 12/01/13 03/10/17 History Gabapentin [Neurontin] 100 mg PO TID 07/20/15 12/15/17 History Famotidine [Pepcid] 20 mg PO HS 08/09/15 12/15/17 History Warfarin [Coumadin] 2.5 mg PO TH 08/09/15 03/10/17 History Propafenone Sr [Rythmol Sr] 225 mg PO BID 03/10/17 12/15/17 History HYDROcodone/APAP 10-325MG [[place] 1 tab PO Q6HR PRN 12/15/17 12/15/17 History 10-325] Allergies Allergy/AdvReac Type Severity Reaction Status Date / Time amoxicillin Allergy Anaphylaxis Verified 12/15/17 12:25 Penicillins Allergy Anaphylaxis Verified 03/10/17 16:16 Physical Exam Vitals: Vital Signs Temp Pulse Pulse Resp BP BP Pulse Ox 12/16/17 07:50 98.8 F 58 L 18 151/73 94 L 12/16/17 04:00 58 L 16 12/16/17 00:00 50 L 16 12/15/17 23:58 98.2 F 58 L 16 138/60 96 12/15/17 20:00 97.9 F 60 18 162/88 96 12/15/17 15:34 97.9 F 53 L 18 116/60 94 L 12/15/17 11:33 99.0 F 66 18 148/67 95 12/15/17 11:00 98.1 F 58 L 20 141/70 98 Intake and Output 12/15/17 12/16/17 12/16/17 22:59 06:59 14:59 Intake Total 676 500 Balance 676 500 Intake: Oral 476 500 Other 200 Other: Voiding Method Toilet Toilet # Voids 3 Results 12/16/17 07:16 12/16/17 07:16 Cardiac Enzymes 12/15/17 12/15/17 12/15/17 Range/Units 09:23 11:49 18:01 AST (14-36) U/L CK-MB (CK-2) 1.8 1.7 (0.0-2.4) ng/mL Troponin I <0.012 <0.012 <0.012 (0.000-0.034) ng/mL 12/16/17 Range/Units 07:16 AST 27 (14-36) U/L CK-MB (CK-2) (0.0-2.4) ng/mL Troponin I (0.000-0.034) ng/mL Coagulation 12/16/17 Range/Units 07:16 PT 20.0 H (9.0-12.0) sec CBC 12/16/17 Range/Units 07:16 WBC 6.7 (3.8-10.6) k/uL RBC 4.30 (3.80-5.40) m/uL Hgb 13.4 (11.4-16.0) gm/dL Hct 39.6 (34.0-46.0) % Plt Count 265 (150-450) k/uL Comprehensive Metabolic Panel 12/16/17 Range/Units 07:16 Sodium 140 (137-145) mmol/L Potassium 4.6 (3.5-5.1) mmol/L Chloride 105 (98-107) mmol/L Carbon Dioxide 25 (22-30) mmol/L BUN 13 (7-17) mg/dL Creatinine 0.66 (0.52-1.04) mg/dL Glucose 95 (74-99) mg/dL Calcium 9.6 (8.4-10.2) mg/dL AST 27 (14-36) U/L ALT 33 (9-52) U/L Alkaline Phosphatase 91 (38-126) U/L Total Protein 6.7 (6.3-8.2) g/dL Albumin 4.0 (3.5-5.0) g/dL Current Medications Generic Name Dose Route Start Last Admin Trade Name Freq PRN Reason Stop Dose Admin Acetaminophen 650 mg 12/15/17 16:04 12/15/17 16:22 Tylenol Tab PO 650 mg Q6HR PRN Administration Pain Scale 1 to 3 Acetaminophen/Butalbital/Caffeine 1 each 12/15/17 16:56 12/15/17 17:40 Fioricet 50-325-40 PO 1 each Q6HR PRN Administration Headache Hydrocodone Bitart/Acetaminophen 1 each 12/15/17 11:39 12/16/17 01:57 [place] 10 PO 1 each Q6HR PRN Administration Pain Scale 4-10 Aspirin 81 mg 12/16/17 09:00 Aspirin PO QAM KARIE Atenolol 25 mg 12/15/17 11:45 12/15/17 12:33 Tenormin PO 25 mg QAM KARIE Administration Atorvastatin Calcium 10 mg 12/15/17 21:00 12/15/17 20:39 Lipitor PO 10 mg HS KARIE Administration Famotidine 20 mg 12/15/17 21:00 12/15/17 20:39 Pepcid PO 20 mg HS KARIE Administration Gabapentin 100 mg 12/15/17 11:45 12/15/17 20:39 Neurontin PO 100 mg TID KARIE Administration Levothyroxine Sodium 50 mcg 12/15/17 11:45 12/16/17 06:57 Synthroid PO 50 mcg QAM@0630 KARIE Administration Naloxone HCl 0.2 mg 12/15/17 10:31 Narcan IV Q2M PRN Opioid Reversal Propafenone HCl 150 mg 12/15/17 11:45 12/15/17 20:40 Rythmol PO 150 mg TID KARIE Administration Warfarin Sodium 2.5 mg 12/20/17 18:00 Coumadin PO Th@1800 KARIE Warfarin Sodium 5 mg 12/15/17 18:00 12/15/17 17:39 Coumadin PO 5 mg [id number] [facility] Administration Intake and Output 12/15/17 12/16/17 12/16/17 22:59 06:59 14:59 Intake Total 676 500 Balance 676 500 Intake: Oral 476 500 Other 200 Other: Voiding Method Toilet Toilet # Voids 3 12/16/17 07:16 12/16/17 07:16
[2017-12-16 11:23] VITALS: BP 145/65; PULSE 63; TEMP 97.8
--- NOTE | 2017-12-16 12:24 | P.DS ---
Providers Date of admission: 12/15/17 10:31 Expected date of discharge: 12/16/17 Attending physician: Radha Mancilla MD Consults: 12/15/17 10:31 Consult Physician Routine Consulting Provider: Damian Perez Consult Reason/Comments: CP Do you want consulting provider notified?: Yes [place] [facility] [place] This is a 80-year-old female one of Dr. Vance with a previous medical history significant for coronary artery disease status post stent placement back in 2006 of circumflex , atrial fibrillation, hyperlipidemia, hypertension and hypertensive cardiovascular disease, hypothyroidism, patient was in her usual state of health until yesterday 12 AM midnight and patient started having an acute sudden chest pain, midsternal in location that lasted for 15 minutes. Patient describes it as shocklike sensation which were got better by itself associated with clammy hands and shortness of breath. Patient states she had similar symptoms when she had a stent placed in 2006. She denies any cough or shortness of breath for the past week denies any recent fever, headache or numbness or tingling of the lower extremity. Troponin 3 negative in the ER. EKG suggested chronic changes of left ventricular hypertrophy with first-degree AV block. Patient states she had stress test done 3 weeks ago but is not sure of the results. Cardiology has been consulted patient will be Nothing by mouth after midnight for possible cardiac cath tomorrow. 12/16: Patient's third troponin has been negative. Patient has been evaluated by cardiology and because she has had a recent cardiac stress test 11/13/2017, in the office was normal, no further testing is necessary and patient was cleared for discharge. Patient will be discharged home today in stable condition. Discharge diagnoses: 1. Acute chest pain likely chest wall pain 2. History of coronary artery disease status post PCI. 3. Paroxysmal atrial fibrillation. 4. Hyperlipidemia. 5. Hypothyroidism. 6. Hypertension and hypertensive cardiovascular disease. 7. Chronic low back pain with chronic pain syndrome. 8. Chronic headache. Discharge plan: Return home Impression and plan of care have been directed as dictated by the signing physician. Basilia Rodriguez nurse practitioner acting as scribe for signing physician. Patient Condition at Discharge: Good Plan - Discharge Summary Discharge Rx Participant: No New Discharge Prescriptions: Continue Levothyroxine Sodium [Synthroid] 50 mcg PO QAM Atenolol [Tenormin] 25 mg PO QAM Simvastatin [Zocor] 20 mg PO HS Warfarin [Coumadin] 5 mg PO SUMOTUWEFRSA Butalb/Acetaminophen/Caffeine [Fioricet 50-325-40 mg Tablet] 1 tab PO Q6H PRN PRN Reason: Migraine Headache Gabapentin [Neurontin] 100 mg PO TID Warfarin [Coumadin] 2.5 mg PO TH Famotidine [Pepcid] 20 mg PO HS Propafenone Sr [Rythmol Sr] 225 mg PO BID HYDROcodone/APAP 10-325MG [[place] 10-325] 1 tab PO Q6HR PRN PRN Reason: Pain Discharge Medication List Atenolol [Tenormin] 25 mg PO QAM 12/01/13 [History] Butalb/Acetaminophen/Caffeine [Fioricet 50-325-40 mg Tablet] 1 tab PO Q6H PRN [History] Levothyroxine Sodium [Synthroid] 50 mcg PO QAM 12/01/13 [History] Simvastatin [Zocor] 20 mg PO HS 12/01/13 [History] Warfarin [Coumadin] 5 mg PO SUMOTUWEFRSA 12/01/13 [History] Gabapentin [Neurontin] 100 mg PO TID 07/20/15 [History] Famotidine [Pepcid] 20 mg PO HS 08/09/15 [History] Warfarin [Coumadin] 2.5 mg PO TH 08/09/15 [History] Propafenone Sr [Rythmol Sr] 225 mg PO BID 03/10/17 [History] HYDROcodone/APAP 10-325MG [[place] 10-325] 1 tab PO Q6HR PRN 12/15/17 [History] Follow up Appointment(s)/Referral(s): Whitney Lowe MD [STAFF PHYSICIAN] - 1 Week (Patient already has follow up appointment scheduled for next week. ) Orlando Vance MD [Primary Care Provider] - 1 Week Patient Instructions/Handouts: Chest Pain (DC)
[2017-12-20] MEDS ORDERED: WARFARIN 2.5 MG TAB PO SCH (18:00)
== END 2017-12-16 12:30 | disposition home or self-care (01) ==
LOC: EC 06:19 → 3SUR 10:31
PROVIDERS: ADMIT Internal Medicine; ATTEND Internal Medicine
DX: R07.89 Other chest pain (principal); I25.10 Atherosclerotic heart disease of native coronary artery without angina pectoris; I48.0 Paroxysmal atrial fibrillation; E78.5 Hyperlipidemia, unspecified; E03.9 Hypothyroidism, unspecified; I11.9 Hypertensive heart disease without heart failure; G89.4 Chronic pain syndrome; M54.5 Low back pain; R51 Headache; Z95.5 Presence of coronary angioplasty implant and graft; Z79.01 Long term (current) use of anticoagulants; R06.02 Shortness of breath; R23.1 Pallor; Z79.899 Other long term (current) drug therapy; Z79.82 Long term (current) use of aspirin; Z79.890 Hormone replacement therapy; R11.0 Nausea; Z88.0 Allergy status to penicillin; I25.2 Old myocardial infarction; Z87.891 Personal history of nicotine dependence; Z82.5 Family history of asthma and other chronic lower respiratory diseases; Z16.24 Resistance to multiple antibiotics; K58.9 Irritable bowel syndrome, unspecified; Z90.49 Acquired absence of other specified parts of digestive tract; R61 Generalized hyperhidrosis
CPT/HCPCS: 99285; 36415; 93005; 80053 ×2; 82550; 82553; 83735; 84484; 85025 ×2; 85610 ×2; 85730; 71046; G0378 ×2

== ENCOUNTER → 2018-10-10 | Outpatient (CLI) | payer MEDICARE ==
--- NOTE | 2018-10-11 09:19 | CT ---
EXAMINATION TYPE: CT abdomen wo con DATE OF EXAM: 10/10/2018 COMPARISON: 10/13/2016 HISTORY: Diverticulitis. History of pubic vaginal sling. CT DLP: 436 mGycm Automated exposure control for dose reduction was used. TECHNIQUE: Helical acquisition of images was performed from the lung bases through the top of iliac crest to include entire abdomen. CONTRAST: Performed with Oral Contrast and without IV contrast. FINDINGS: LOWER THORAX: Linear pleural parenchymal scarring is seen at the lung bases and redemonstration of pa rtially visualized cardiomegaly as well as a small hiatal hernia. LIVER/GB: Enlarged and elongated as iliac crest otherwise unremarkable unenhanced morphology. Gallbla dder surgically absent. PANCREAS: No pancreatic ductal dilatation. SPLEEN: No splenomegaly. ADRENALS: Unremarkable KIDNEYS: Kidneys are symmetric without nephrolithiasis or hydronephrosis. BOWEL: The previously seen sigmoid colonic thickening is not visualized given the [id number] on t his CT abdomen only. Numerous scattered colonic diverticula are present without pericolonic fat stran ding. There is decompression of the splenic flexure. Mild amount retained colonic stool is present in the right hemicolon. No dilated large or small bowel. LYMPH NODES: No significant abnormality is appreciated. OSSEOUS STRUCTURES: Mild multilevel degenerative changes of the spine. FREE AIR: No free air is visualized. OTHER: Extensive atherosclerosis is seen of the abdominal aorta and its branches. IMPRESSION: 1. PANCOLONIC DIVERTICULOSIS WITH SOME DECOMPRESSION/WALL THICKNESS PROMINENCE OF THE SPLENIC FLEXURE THAT COULD RELATE TO VERY MILD ACUTE UNCOMPLICATED COLITIS OR SIMPLY NONDISTENTION. NO PERICOLONIC A BSCESS OR FAT STRANDING. THE SIGMOID COLON AT THE SITE OF BOWEL WALL THICKENING ON THE PRIOR EXAM OF 2017 IS NOT IMAGED ON THE CT ABDOMEN ONLY. 2. HEPATOMEGALY. 3. VERY SMALL HIATAL HERNIA.
== END | disposition home or self-care (01) ==
LOC: RADCTMAIN 15:44
PROVIDERS: ATTEND Internal Medicine Geriatric Medicine
DX: K57.30 Diverticulosis of large intestine without perforation or abscess without bleeding (principal); K44.9 Diaphragmatic hernia without obstruction or gangrene; R16.0 Hepatomegaly, not elsewhere classified
CPT/HCPCS: 74150

== ENCOUNTER → 2018-10-16 | Outpatient (CLI) | payer MEDICARE ==
--- NOTE | 2018-10-16 14:21 | MM ---
Reason for exam: additional evaluation requested from prior study. Last mammogram was performed 4 years and 10 months ago. History: Patient is postmenopausal. Family history of breast cancer in maternal grandmother and breast cancer in paternal aunt. Took estrogen for 8 years. Physical Findings: Nurse did not find any significant physical abnormalities on exam. MG 3D Diag Mammo W/Cad JESUS Bilateral CC and MLO view(s) were taken. Prior study comparison: December 26, 2013, bilateral MG screening mammo w CAD. October 04, 2012, CAD bilateral diagnostic mammogram. There are scattered fibroglandular densities. There is no discrete abnormality. These results were verbally communicated with the patient and result sheet given to the patient on 10/16/18. ASSESSMENT: Benign, BI-RAD 2 RECOMMENDATION: Routine screening mammogram of both breasts in 1 year.
== END | disposition home or self-care (01) ==
LOC: RADMAMWWP 13:20
PROVIDERS: ATTEND Internal Medicine Geriatric Medicine
DX: N64.9 Disorder of breast, unspecified (principal)
CPT/HCPCS: 77066; G0279; 77062

== ENCOUNTER 2021-06-01 20:30 | Inpatient (IN) | payer MEDICARE ==
[2021-06-01] MEDS ORDERED: HYDROmorphone 0.5 MG/0.5 ML SYRINGE IVP STA ×2 (21:07→22:33)
[2021-06-01 21:48] LABS: Basophils % (A) 0 %; Eosinophils # (A) 0.1 k/uL (0-0.7); Eosinophils % (A) 1 %; HCT 38.9 % (34.0-46.0); HGB 13.2 gm/dL (11.4-16.0); Lymphocytes % (A) 11 %; MCH 31.8 pg (25.0-35.0); MCHC 33.9 g/dL (31.0-37.0); MCV 93.7 fL (80.0-100.0); Monocytes # (A) 0.6 k/uL (0-1.0); Monocytes % (A) 7 %; Neutrophils # (A) 7.4 k/uL (1.3-7.7); Neutrophils % (A) 80 %; Platelet Count 215 k/uL (150-450); RBC 4.15 m/uL (3.80-5.40); RDW 12.3 % (11.5-15.5); WBC 9.3 k/uL (3.8-10.6)
--- NOTE | 2021-06-01 21:51 | XR ---
EXAMINATION TYPE: XR wrist complete LT DATE OF EXAM: 06/01/2021 COMPARISON: None HISTORY: Fall, pain TECHNIQUE: 3 view left wrist FINDINGS: There is a transverse impacted fracture of the distal metaphyseal radius. Dorsal angulation of approximately 30 degrees is evident. The distal metaphyseal ulnar fracture is also noted. Ulnar s tyloid avulsion is noted. No additional fractures are identified. The structures are osteopenic. Prominent soft tissue swelling is over the fracture site. If there is pain at the anatomic snuff box, nuclear medicine bone scan would be recommended for addit ional evaluation. Follow-up exams could also be performed 7-10 days from acute trauma for continued p ain not explained by the distal radial and ulnar fractures. IMPRESSION: 1. Transverse distal metaphyseal radial and ulnar fractures with dorsal angulation. 2. Ulnar styloid avulsion.
[2021-06-01 21:57] LABS: ALT 22 U/L (4-34); AST 43 U/L (14-36); African American GFR (CKD) >90 (>60 ml/min/1.73 sqM); Albumin 3.7 g/dL (3.5-5.0); Alkaline Phosphatase 90 U/L (38-126); Anion Gap 6 mmol/L; Blood Urea Nitrogen 17 mg/dL (7-17); Calcium 8.9 mg/dL (8.4-10.2); Carbon Dioxide 22 mmol/L (22-30); Chloride 105 mmol/L (98-107); Glucose 124 mg/dL (74-99); Lipase 44 U/L (23-300); Non-African American GFR(CKD) 82 (>60 ml/min/1.73 sqM); Potassium 4.4 mmol/L (3.5-5.1); Sodium 133 mmol/L (137-145); Total Bilirubin 0.5 mg/dL (0.2-1.3); Total Protein 6.7 g/dL (6.3-8.2)
[2021-06-01 22:07] LABS: INR 1.5 (<1.2); Prothrombin Time 15.1 sec (9.0-12.0)
--- NOTE | 2021-06-01 22:11 | XR ---
EXAMINATION TYPE: XR Hip LT and AP Pelvis DATE OF EXAM: 06/01/2021 COMPARISON: NONE HISTORY: Hip pain. Fall TECHNIQUE: 3 views FINDINGS: There is impacted and displaced subcapital fracture left femur. There is no dislocation. Th ere is approximately 2.5 cm of displacement. The pelvic ring is intact. IMPRESSION: Displaced subcapital fracture of the left femur.
--- NOTE | 2021-06-01 22:13 | XR ---
EXAMINATION TYPE: XR chest 1V DATE OF EXAM: 06/01/2021 COMPARISON: 12/15/2017 HISTORY: Fall. Pain TECHNIQUE: Single view FINDINGS: Heart is enlarged. There is no gross heart failure. There is some coarsening of the lung ma rkings. There is no pleural effusion. Bony thorax is intact. IMPRESSION: Mild subsegmental atelectasis or fibrotic changes are increased compared to last exam. Ca rdiomegaly. No heart failure.
--- NOTE | 2021-06-01 22:37 | ED ---
General Adult HPI - General Chief complaint: Fall Stated complaint: Fall Time Seen by Provider: 06/01/21 20:33 Source: patient, EMS Mode of arrival: EMS Limitations: no limitations, physical limitation - History of Present Illness Initial comments: Dictation was produced using [employer] dictation software. please excuse any grammatical, word or spelling errors. Chief Complaint: 86-year-old female presents emergency Department after fall History of Present Illness: 86-year-old female states she fell in her garage. She slipped falling backwards in landed on her left side. Patient tried to catch herself. Patient complaining of left hip pain and left wrist pain. Patient takes Coumadin for A. fib. Patient reports she slipped. Patient is brought in by EMS. She has gross deformity of the left hip and the left wrist. Patient denies any chest pain shortness of breath. Denies any back pain. States she did not hit her head. The ROS documented in this emergency department record has been reviewed and confirmed by me. Those systems with pertinent positive or negative responses have been documented in the HPI. All other systems are other negative and/or noncontributory. PHYSICAL EXAM: General Impression: Alert and oriented x3, acute distress secondary to pain HEENT: Normocephalic atraumatic, extra-ocular movements intact, pupils equal and reactive to light bilaterally, mucous membranes moist. Cardiovascular: Heart regular rate and rhythm Chest: Able to complete full sentences, no retractions, no tachypnea Abdomen: abdomen soft, non-tender, non-distended, no organomegaly Musculoskeletal: Pulses present and equal in all extremities, no peripheral edema, gross abnormality to the left wrist and shortened internally rotated left hip. Left upper extremity left lower extremity are normal neurovascularly Motor: no focal deficits noted Neurological: CN II-XII grossly intact, no focal motor or sensory deficits noted Skin: Intact with no visualized rashes Psych: Anxious ED course: 86-year-old female presents to the emergency department after fall vital signs upon arrival are within acceptable limits Laboratory evaluation obtained. CBC unremarkable. INR is 1.5. Metabolic panel is unremarkable. Patient states she has not taken her Coumadin in 2 days. Computed tomography scan of the head and C-spine shows no acute processes. Chest x-ray is unremarkable. The pelvis x-ray shows subcapital left femur fracture, wrist x-ray shows a distal radius fracture patient placed in a splint. Case discussed with Yamilex who is the PA on-call for orthopedic city call team who is agreeable. Patient admitted under Dr. Orellana with nursing consult. EKG interpretation: Ventricular rate 60, A. fib, QRS 106, QTC 4:30. No ID prolongation, no QTC prolongation, no ST or T-wave changes noted. Overall, this EKG is unremarkable - Related Data Home Medications Medication Instructions Recorded Confirmed Butalb/Acetaminophen/Caffeine 1 tab PO Q6H PRN 12/01/13 12/15/17 [Fioricet 50-325-40 mg Tablet] Levothyroxine Sodium [Synthroid] 50 mcg PO QAM 12/01/13 12/15/17 Simvastatin [Zocor] 20 mg PO HS 12/01/13 12/15/17 Warfarin [Coumadin] 5 mg PO TUSA 12/01/13 12/17/17 atenoloL [Tenormin] 25 mg PO QAM 12/01/13 12/15/17 Gabapentin [Neurontin] 100 mg PO TID 07/20/15 12/15/17 Famotidine [Pepcid] 20 mg PO HS 08/09/15 12/15/17 Warfarin [Coumadin] 2.5 mg PO SUMOWETHFR 08/09/15 12/17/17 Propafenone Sr [Rythmol Sr] 225 mg PO BID 03/10/17 12/15/17 HYDROcodone/APAP 10-325MG [[place] 1 tab PO Q6HR PRN 12/15/17 12/15/17 10-325] Allergies Allergy/AdvReac Type Severity Reaction Status Date / Time amoxicillin Allergy Anaphylaxis Verified 06/01/21 23:25 Penicillins Allergy Anaphylaxis Verified 06/01/21 23:25 morphine AdvReac Nausea & Verified 06/01/21 23:25 Vomiting Review of Systems ROS Statement: Those systems with pertinent positive or pertinent negative responses have been documented in the HPI. ROS Other: All systems not noted in ROS Statement are negative. Past Medical History Past Medical History: Atrial Fibrillation, Hyperlipidemia, Hypertension, Myocardial Infarction ([place]), Thyroid Disorder Additional Past Medical History / Comment(s): IBS, acute coloitis, 3 feces transplants at [facility] Last Myocardial Infarction Date:: 2006 History of Any Multi-Drug Resistant Organisms: C-DIFF Date of last positivie culture/infection: 2014 MDRO Source:: stool Past Surgical History: Cholecystectomy, Heart Catheterization With Stent, Hysterectomy, Orthopedic Surgery Additional Past Surgical History / Comment(s): left foot reconstruction surgery, pubic vaginal sling, partial hysterectomy, colonoscopy. Past Anesthesia/Blood Transfusion Reactions: No Reported Reaction Date of Last Stent Placement:: 2006 Past Psychological History: No Psychological Hx Reported Smoking Status: Never smoker Past Alcohol Use History: None Reported Past Drug Use History: None Reported - Past Family History Mother Family Medical History: Coronary Artery Disease (CAD) Father Family Medical History: Coronary Artery Disease (CAD) Son(s) Family Medical History: COPD Additional Family Medical History / Comment(s): Her maternal grandfather at age 54 from [place] General Exam Limitations: no limitations, physical limitation Course Vital Signs 06/01/21 06/01/21 20:46 22:57 Temperature 98.0 F Pulse Rate 93 72 Respiratory 18 16 Rate Blood Pressure 173/106 150/81 O2 Sat by Pulse 91 L 93 L Oximetry Procedures - Orthopedic Splinting/Casting Injury #1 Side: left Upper Extremity Injury Location: wrist (distal radius and ulnar fracture) Medical Decision Making - Lab Data Result diagrams: 06/01/21 21:40 06/01/21 21:40 Lab Results 06/01/21 06/01/21 06/01/21 Range/Units 21:35 21:40 21:40 WBC 9.3 (3.8-10.6) k/uL RBC 4.15 (3.80-5.40) m/uL Hgb 13.2 (11.4-16.0) gm/dL Hct 38.9 (34.0-46.0) % MCV 93.7 (80.0-100.0) fL MCH 31.8 (25.0-35.0) pg MCHC 33.9 (31.0-37.0) g/dL RDW 12.3 (11.5-15.5) % Plt Count 215 (150-450) k/uL MPV 8.0 Neutrophils % 80 % Lymphocytes % 11 % Monocytes % 7 % Eosinophils % 1 % Basophils % 0 % Neutrophils # 7.4 (1.3-7.7) k/uL Lymphocytes # 1.0 (1.0-4.8) k/uL Monocytes # 0.6 (0-1.0) k/uL Eosinophils # 0.1 (0-0.7) k/uL Basophils # 0.0 (0-0.2) k/uL PT 15.1 H (9.0-12.0) sec INR 1.5 H (<1.2) Sodium 133 L (137-145) mmol/L Potassium 4.4 (3.5-5.1) mmol/L Chloride 105 (98-107) mmol/L Carbon Dioxide 22 (22-30) mmol/L Anion Gap 6 mmol/L BUN 17 (7-17) mg/dL Creatinine 0.63 (0.52-1.04) mg/dL Est GFR (CKD-EPI)AfAm >90 (>60 ml/min/1.73 sqM) Est GFR (CKD-EPI)NonAf 82 (>60 ml/min/1.73 sqM) Glucose 124 H (74-99) mg/dL Calcium 8.9 (8.4-10.2) mg/dL Total Bilirubin 0.5 (0.2-1.3) mg/dL AST 43 H (14-36) U/L ALT 22 (4-34) U/L Alkaline Phosphatase 90 (38-126) U/L Total Protein 6.7 (6.3-8.2) g/dL Albumin 3.7 (3.5-5.0) g/dL Lipase 44 (23-300) U/L Disposition Clinical Impression: Hip fracture, Wrist fracture Disposition: ADMITTED IP TO THIS [facility] Condition: Fair Referrals: Orlando Vance MD [Primary Care Provider] - 1-2 days
--- NOTE | 2021-06-01 22:55 | CT ---
EXAMINATION TYPE: CT brain aye wo con DATE OF EXAM: 06/01/2021 COMPARISON: 03/10/2017 HISTORY: FALL CT DLP: 1522.9 mGycm Automated exposure control for dose reduction was used. Ventricles have normal size. There is no mass effect nor midline shift. There is no sign of intracran ial hemorrhage. There is normal aeration of the mastoid sinuses. Calvarium is intact. Skull base is i ntact. Cervical vertebra have fairly normal spacing and alignment. There is mild spurring at C5-6 and C6-7. Facet joints are intact. There is no compression fracture. Prevertebral soft tissues are intact. IMPRESSION: No acute intracranial abnormality. No change. Minor degenerative changes in the cervical spine. No fracture. No change. Fibrotic changes noted at t he lung apices.
[2021-06-01] MEDS ORDERED: NALOXONE 0.4 MG/ML 1 ML VIAL IV PRN (23:13)
[2021-06-01] MEDS ORDERED: ACETAMINOPHEN TAB 325 MG TAB PO PRN (23:13)
[2021-06-02] MEDS: HYDROmorphone 0.5 MG/0.5 ML SYRINGE IVP PRN ×2 (02:04→06:26)
[2021-06-02] MEDS: SODIUM CHLORIDE 0.9% 1,000 ML IV SCH ×3 (02:25→17:02)
[2021-06-02] MEDS ORDERED: HYDROcodone/APAP 5-325MG 1 EACH TAB PO STA (08:43)
[2021-06-02] MEDS: HYDROmorphone 1 MG/ML 1 ML SYRINGE IVP PRN ×2 (09:53→14:28)
[2021-06-02] MEDS ORDERED: BUTALB/APAP/CAFF 50-325-40MG TAB PO PRN (09:54)
[2021-06-02] MEDS ORDERED: ALPRAZolam 0.25 MG TAB PO PRN (09:54)
--- NOTE | 2021-06-02 10:42 | P.HPOR ---
History of Present Illness H&P Date: 06/02/21 Chief Complaint: Left hip pain 86-year-old female presents to the emergency department after sustaining a fall from standing at home in her garage. States she slipped and fell onto her left hip causing left hip and left wrist pain. She was unable to ambulate afterwards secondary to the pain in: Emergency Department. She was then brought to emergency department and seen and evaluated. Patient complain of pain in her hip and her wrist she denies a blunt head trauma however she did state loss of consciousness with the fall stated that she Fainting and did not know why. She denied any other injuries or symptoms at this time. Chills shortness breath or chest pain at this time. No blurred vision headache nausea or vomiting. Review of Systems 14 points review of systems completed and as stated in HPI, all other systems reviewed are negative. Past Medical History Past Medical History: Atrial Fibrillation, Hyperlipidemia, Hypertension, Myocardial Infarction ([place]), Thyroid Disorder Additional Past Medical History / Comment(s): IBS, acute coloitis, 3 feces transplants at [facility] Last Myocardial Infarction Date:: 2006 History of Any Multi-Drug Resistant Organisms: C-DIFF Date of last positivie culture/infection: 2014 MDRO Source:: stool Past Surgical History: Cholecystectomy, Heart Catheterization With Stent, Hysterectomy, Orthopedic Surgery Additional Past Surgical History / Comment(s): left foot reconstruction surgery, pubic vaginal sling, partial hysterectomy, colonoscopy. Past Anesthesia/Blood Transfusion Reactions: No Reported Reaction Date of Last Stent Placement:: 2006 Past Psychological History: No Psychological Hx Reported Smoking Status: Never smoker Past Alcohol Use History: None Reported Additional Past Alcohol Use History / Comment(s): Patient denies history of smoking. She denies medical marijuana, marijuana, street drug or alcohol use. Patient is currently living alone. Past Drug Use History: None Reported - Past Family History Mother Family Medical History: Coronary Artery Disease (CAD) Father Family Medical History: Coronary Artery Disease (CAD) Son(s) Family Medical History: COPD Additional Family Medical History / Comment(s): Her maternal grandfather at age 54 from [place] Medications and Allergies Home Medications Medication Instructions Recorded Confirmed Type Butalb/Acetaminophen/Caffeine 1 tab PO Q6H PRN 12/01/13 06/01/21 History [Fioricet 50-325-40 mg Tablet] Levothyroxine Sodium [Synthroid] 50 mcg PO QAM 12/01/13 06/01/21 History Simvastatin [Zocor] 20 mg PO HS 12/01/13 06/01/21 History Warfarin [Coumadin] 5 mg PO MOFR 12/01/13 06/01/21 History atenoloL [Tenormin] 25 mg PO DAILY 12/01/13 06/01/21 History Famotidine [Pepcid] 20 mg PO HS 08/09/15 06/01/21 History Warfarin [Coumadin] 2.5 mg PO SUTUWETHSA 08/09/15 06/01/21 History HYDROcodone/APAP 10-325MG [[place] 0.5 tab PO Q3H PRN 12/15/17 06/01/21 History 10-325] ALPRAZolam [Xanax] 0.25 mg PO TID PRN 06/01/21 06/01/21 History Gabapentin [Neurontin] 300 mg PO TID 06/01/21 06/01/21 History Nystatin 100,000Unit/gm Cream 1 applic TOPICAL BID 06/01/21 06/01/21 History [Mycostatin Cream] Propafenone HCl [Propafenone HCl 225 mg PO Q12HR 06/01/21 06/01/21 History ER] Allergies Allergy/AdvReac Type Severity Reaction Status Date / Time amoxicillin Allergy Anaphylaxis Verified 06/01/21 23:25 Penicillins Allergy Anaphylaxis Verified 06/01/21 23:25 morphine AdvReac Nausea & Verified 06/01/21 23:25 Vomiting Physical Examination Osteopathic Statement: *. No significant issues noted on an osteopathic structural exam other than those noted in the History and Physical/Consult. Patient is alert and oriented 3 appears well-nourished well-hydrated is in no acute distress. They do not appear septic. On exam the patient has no tenderness to palpation of her thoracic or lumbar spine. There is no edema or ballottement sign. Patient has pain with logroll of her left hip she has pain in her left foot and allodynia secondary to a surgery that she had in this foot. Lower extremities with 5 out of 5 strength in all major muscle groups except for her left side with left hip pain and pain with motion or restricted by pain Upper extremities show 5/5 strength in all major muscle groups. There is FROM that is painless of the b/l UE and LE in all major joints. Except left hip as mentioned They are intact to light touch sensation in L2 to S1 nerve distribution. Patient has palpable dorsalis pedis was posterior tibial pulses. Compartments are soft and compressible. Patient shows a negative Homans, Noel's, negative Babinski's negative clonus bilaterally. negative straight leg raise bilaterally. No tensioning signs. Cranial nerves II through XII are grossly intact. Overall alignment is well-maintained in the sagittal coronal planes. [] Results Pelvis and left hip films are reviewed and these demonstrate a left hip femoral neck fracture which is complete and displaced. There is comminution about the neck. There is mild Ines 3 changes of the hip noted. There are no pelvic fractures noted pelvis is stable. There is visualize some lumbar spondylosis. Left wrist films is reviewed and demonstrate a left wrist distal radius fracture which is extra-articular dorsally angulated about 15-20 with no dorsal displacement. There is no radial carpal dislocation carpometacarpal bones appear without fracture. There is an associated distal ulnar fracture and ulnar styloid fracture which is nondisplaced as well. No other fractures or di slocations are otherwise noted. CT brain and C-spine is reviewed this demonstrates no acute fracture dislocation overall cervical alignment is maintained occipital cervical C1 2 joints appear stable. There is spondylosis throughout the cervical spine. There is no fracture however. There is no acute intracranial process noted. - Labs Labs: Abnormal Lab Results - Last 24 Hours (Table) 06/01/21 06/01/21 Range/Units 21:35 21:40 PT 15.1 H (9.0-12.0) sec INR 1.5 H (<1.2) Sodium 133 L (137-145) mmol/L Glucose 124 H (74-99) mg/dL AST 43 H (14-36) U/L H & H 06/01/21 Range/Units 21:40 Hgb 13.2 (11.4-16.0) gm/dL Hct 38.9 (34.0-46.0) % Coagulation 06/01/21 Range/Units 21:35 INR 1.5 H (<1.2) Result Diagrams: 06/01/21 21:40 06/01/21 21:40 Assessment and Plan Assessment: 86-year-old female status post fall from standing with likely syncopal episodes Left hip femoral neck fracture completely displaced Left distal radial and ulnar fractures dorsally angulated minimal displacement Multiple medical comorbidities Plan: Orthopedic Surgery Risk Review Nika Love is a 86-year-old female presenting for evaluation of sudden onset left hip and wrist pain, inability to ambulate after fall from standing. It was my pleasure to have seen and examined Nika Love. In our visit today we have had a chance to go over subjective complaints, physical examination findings and treatments including the natural course history without intervention and various interventional options. Her imaging demonstrates a left distal radius fracture as well as a left femoral neck fracture. On physical exam, Nika Love demonstrates pain with motion of left wrist and left hip, which is NV intact at this time. I have explained to the patient that this fracture needs stabilization. Based on the patients imaging, physical exam, and the rapid progression and disabling nature of her symptoms, at this time I recommend surgery in the form or a: Left hip hemiarthroplasty with close reduction and splinting of the left wrist I discussed the risk and benefits of this procedure at length with Nika Love . Questions were invited and answered, and the patient wishes to proceed as outlined below. Currently, I am recommendin. Left hip hemiarthroplasty with close reduction and splinting of left wrist 2. Review of surgical risks and benefits as well as an educational packet on the proposed surgical procedure. Risks: All surgical procedures come with inherent risks, including those related to positioning, anesthesia, intraoperative findings, and postoperative complications. It is important to understand that surgery does not come with any guarantee of a successful outcome as complications and adverse events are always possible. The patient was given a handout discussing the surgical procedure and risks associated with the intervention, both of which were discussed with the patient. These risks include but are not limited to the following: - Experiencing same, different or even worse symptoms compared to before surgery. - Requiring further surgery or other forms of treatment presently or at some time in the future . - On an extreme but fortunately relatively rare basis severe complication such as blindness, stroke, heart attack, temporary and/or permanent nerve inju ry, paralysis, coma, or may occur, sometimes without known explanation. - Surgical complications may include but are not limited to risk of infection, fluid accumulation in the surgical dissection site, including a seroma or hematoma, that requires additional surgery, wound drainage, bleeding, new numbness or weakness, vision changes/loss, spinal fluid leakage, non-healing and/or infected incision, headaches, difficulty or inability to swallow, hoarseness, hemopneumothorax, pneumothorax, injury to nerves, spinal cord, blood vessels, lymphatics or other vital organs (i.e., bowel injury, injury to the great vessels); heterotopic bone formation; complications related to the hardware such as screws, rods, including misplaced hardware, device failure, hardware fracture/breakage, or hardware loosening; retained surgical instrumentations or devices and the need for further surgery. - Medical risks of the planned surgery include but are not limited to generalized Infections to the whole body or local areas outside of the surgical site (sepsis), heart attack, bleeding, anaphylaxis, meningitis, seizure, epilepsy, hearing loss, burn ventura, laceration of the head or other areas of the body, bruising, hypersensitivity of the skin, bladder over distension; allergic reaction; shoulder injury related to positioning; fat, blood and air clots to other areas of the body like heart, lungs, brain; failure of internal organs such as lungs, kidneys, liver and excessive bleeding. If blood transfusions are necessary, note that transfusions may cause intolerance reactions such as anaphylaxis or other complex reactions. Despite best efforts, the results of surgery might not heal in terms of bone, soft tissues such as skin, fascia, ligaments, and joints. [facility] is an educational center that serves as a training facility for physician assistants, nurses, orthopedic residents and fellows. Residents are physicians who are completing their surgical intensive training following medical school. They assist in the operating room with direct supervision of the attending surgeons. [place] are surgeons who have completed their training and eligible for board certification. They have opted for an elective year of more specialized training in their field. They assist in the operating room under the supervision of the attending surgeons. Physician assistants are medically trained surgical providers who function in the outpatient, inpatient, and operating room setting under the direct supervision of the attending surgeon. [facility] has multiple operating rooms with single and overlapping rooms running daily. They currently function under the required guidelines as produced by the [facility] with regards to the overlapping rooms and will continue to comply with changes to this policy as they occur. The requirements include and are complied with as follows: (1) the critical portions of the overlapping rooms will not occur at the same time, (2) the attending physician will be physically present during the critical portions of the procedure and immediately available during the entire case, and (3) a back-up attending is designated should the primary attending not be immediately available. The patient has had a chance to review all the listed information, has been given print outs detailing this information, and has had all his/her questions answered to their satisfaction. It was my pleasure to have seen and examined Nika Love. In our visit today we have had a chance to go over my understanding of our patient's current condition, the natural course history without intervention and various interventional options. Questions were invited and answered, and the patient wishes to proceed as outlined above. I have seen and examined the patient for 25 minutes and we have spent more than 50% of the time in repeat and detailed counseling about the patient's condition, its natural course history with out and as much as can be predicted with surgery and re-review of various surgical treatment options. In conclusion, Nika Love requested we proceed with the above suggested surgery and are willing to accept risks and limitations of the suggested surgery as nature of the disease process and our best attempts at treatment for the condition. Thank you again for allowing us to be part of your patient's care. Please don't hesitate to contact me if you have any further questions. Signed and authenticated by: Alber Collado [facility] [address] [place] [address] [place] [address] [address]
[2021-06-02 10:56] LABS: ALT 23 U/L (4-34); AST 36 U/L (14-36); African American GFR (CKD) >90 (>60 ml/min/1.73 sqM); Albumin 3.8 g/dL (3.5-5.0); Alkaline Phosphatase 102 U/L (38-126); Anion Gap 8 mmol/L; Blood Urea Nitrogen 14 mg/dL (7-17); Calcium 9.2 mg/dL (8.4-10.2); Carbon Dioxide 25 mmol/L (22-30); Chloride 101 mmol/L (98-107); Glucose 132 mg/dL (74-99); Non-African American GFR(CKD) 82 (>60 ml/min/1.73 sqM); Potassium 4.4 mmol/L (3.5-5.1); Sodium 134 mmol/L (137-145); Total Bilirubin 0.9 mg/dL (0.2-1.3); Total Protein 6.9 g/dL (6.3-8.2)
[2021-06-02] MEDS: PROPAFENONE 150 MG TAB PO SCH ×2 (11:13→16:59)
[2021-06-02] MEDS: GABAPENTIN 300 MG CAP PO SCH ×2 (11:14→16:33)
[2021-06-02] MEDS: atenoloL 25 MG TAB PO SCH (11:14)
[2021-06-02 11:24] LABS: Creatine Kinase MB 6.5 ng/mL (0.0-2.4)
--- NOTE | 2021-06-02 12:19 | P.CONS ---
History of Present Illness - Reason for Consult Consult date: 06/02/21 - History of Present Illness HISTORY OF PRESENT ILLNESS This is an 86-year-old female patient of Dr. 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 Patient states that she went out into the garage to put some pain in the garbage and she ended up having a fall and experienced significant pain in the left hip and left wrist was unable to get up off the ground. She started dragging herself across the garage floor and was next to the large grudge door started pounding out of the next her neighbor heard her. Neighbor called EMS and patient was brought into the clinic in [facility] emergency center for evaluation. EKG was atrial fibrillation with no acute ST changes. Initial blood pressure 173/106 with recheck of 150/81, afebrile, heart rate in 70s and 90s, pulse ox 91%. CBC was unremarkable with hemoglobin 13.2. Sodium 133 otherwise electrolytes and renal function normal. Blood sugar 124. AST 43. CK 288. Coronavirus not detected. Left hip and pelvis x-rays revealed displaced subcapital fracture of the left femur. Chest x-ray reveals mild subsegmental atelectasis or fibrotic changes are increased compared to last exam. Cardiomegaly. No heart failure. CAT scan of the brain and cervical spine revealed no acute intracranial abnormality. Minor degenerative changes in the cervical spine. No fracture. No change. Fibrotic changes noted at the lung apices. X-ray of the left wrist revealed transverse distal metaphyseal radial and ulnar fractures with dorsal angulation. Ulnar styloid avulsion. Patient has been admitted to orthopedics with plan for left hip hemiarthroplasty this afternoon and left wrist open reduction and internal fixation on 06/04. Regarding Coumadin, patient states that she has not been feeling well and has not taken Coumadin for the past 2 days. Patient is complaining of significant left foot pain which is been chronic and she normally sleeps in a chair. Pain medications have been ordered and we will resume gabapentin, Xanax and atenolol to be given prior to surgery today. Consult with cardiology added for clearance secondary to atrial fibrillation and history of HI. REVIEW OF SYSTEMS Constitutional: No fever, no chills, no night sweats. No weight change. No weakness, fatigue or lethargy. No daytime sleepiness. EENT: No headache. No blurred vision or double vision, no loss of vision. No loss of Hearing, no ringing in the ears, no dizziness. No nasal drainage or congestion. No epistaxis. No sore throat. Lungs: No shortness of breath, cough, no sputum production. No wheezing. Cardiovascular: No chest pain, no lower extremity edema. No palpitations. No paroxysmal nocturnal dyspnea. No orthopnea. No lightheadedness or dizziness. No syncopal episodes. Abdominal: No abdominal pain. No nausea, vomiting. No diarrhea. No constipation. No bloody or tarry stools. No loss of appetite. Genitourinary: No dysuria, increased frequency, urgency. No urinary retention. Musculoskeletal: No myalgias. No muscle weakness, no gait dysfunction, no frequent falls. No back pain. No neck pain.Reports left hip pain, left wrist pain, left foot pain Integumentary: No wounds, no lesions. No rash or pruritus. No unusual bruising. No change in hair or nails. Neurologic: No aphasia. No facial droop. No change in mentation. No head injury. No headache. No paralysis. No paresthesia. Psychiatric: No depression. No anxiety. No mood swings. Endocrine: No abnormal blood sugars. No weight change. No excessive sweating or thirst. No cold intolerance. SOCIAL HISTORY Patient smokes cigarettes for a very brief period. She denies marijuana, illicit drug use or alcohol use. Patient lives alone. She uses a cane for ambulation. FAMILY HISTORY Mother at age 94 from CAD. Father at age of 87 from CAD. Patient has one son with COPD. Her maternal grandfather at age 54 from [place] PHYSICAL EXAMINATION Gen: This is 86-year-old laying in bed and appears to be quite uncomfortable se condary to pain mostly to the left foot. HEENT: Head is atraumatic, normocephalic. Pupils equal, round. Sclerae is anicteric. NECK: Supple. No JVD. No lymphadenopathy. No thyromegaly. LUNGS: Clear to auscultation. No wheezes or rhonchi. No intercostal retractions. HEART:Regularly irregular rate and rhythm. Systolic murmur. ABDOMEN: Soft. Bowel sounds are present. No masses. No tenderness. EXTREMITIES: No pedal edema. No calf tenderness.Left hip tenderness, left foot tenderness, splint in place to the left forearm. NEUROLOGICAL: Patient is awake, alert and oriented x3. Cranial nerves 2 through 12 are grossly intact. ASSESSMENT AND PLAN 1. Left femur fracture. Patient is scheduled this afternoon for left hip hemiarthroplasty. We have asked for cardiology consult for clearance. Continue current pain management, PT and OT per per orthopedics, Coumadin is currently on hold. 2. Left radial and ulnar fractures. Patient is scheduled for left wrist open reduction and internal fixation on 06/04. 3. History of coronary artery disease with previous myocardial infarction in 2006 status post stent. Consult with cardiology]. 4. Paroxysmal atrial fibrillation. Patient is continued on Rythmol 150 mg 3 times daily, atenolol 25 mg daily, hold Coumadin for surgery, cardiology consult. 5. Hyperlipidemia. Hold simvastatin. 6. Hypertension, hypertensive cardiovascular disease. Continue atenolol and Rythmol. 7. Hypothyroidism. Continue levothyroxine 50 g daily. 8. Migraine headaches. Continue Fioricet as needed. 9. Gastroesophageal reflux disease. Continue Pepcid 20 mg at bedtime. 10. Generalized anxiety disorder. Continue Xanax 0.5 mg 2 times daily. 11. Chronic left foot pain and neuropathy. Continue gabapentin 300 mg 3 times daily, Frakes 10 one half tablet every 3 hours as needed. 12. COVID-19 testing negative. Patient has been hospitalized during a pandemic. Patient will be admitted to the hospital for a minimum of 2 night stay. DISCHARGE PLAN Acute rehab. Impression and plan of care have been directed as dictated by the signing physician. Basilia Rodriguez nurse practitioner acting as scribe for signing physician. Past Medical History Past Medical History: Atrial Fibrillation, Hyperlipidemia, Hypertension, Myocardial Infarction ([place]), Thyroid Disorder Additional Past Medical History / Comment(s): IBS, acute coloitis, 3 feces transplants at [facility] Last Myocardial Infarction Date:: 2006 History of Any Multi-Drug Resistant Organisms: C-DIFF Year Discovered:: 2014 MDRO Source:: stool Past Surgical History: Cholecystectomy, Heart Catheterization With Stent, Hysterectomy, Orthopedic Surgery Additional Past Surgical History / Comment(s): left foot reconstruction surgery, pubic vaginal sling, partial hysterectomy, colonoscopy. Past Anesthesia/Blood Transfusion Reactions: No Reported Reaction Date of Last Stent Placement:: 2006 Past Psychological History: No Psychological Hx Reported Smoking Status: Never smoker Past Alcohol Use History: None Reported Additional Past Alcohol Use History / Comment(s): Patient denies history of smoking. She denies medical marijuana, marijuana, street drug or alcohol use. Patient is currently living alone. Past Drug Use History: None Reported - Past Family History Mother Family Medical History: Coronary Artery Disease (CAD) Father Family Medical History: Coronary Artery Disease (CAD) Son(s) Family Medical History: COPD Additional Family Medical History / Comment(s): Her maternal grandfather at age 54 from [place] Medications and Allergies Home Medications Medication Instructions Recorded Confirmed Type Butalb/Acetaminophen/Caffeine 1 tab PO Q6H PRN 12/01/13 06/01/21 History [Fioricet 50-325-40 mg Tablet] Levothyroxine Sodium [Synthroid] 50 mcg PO QAM 12/01/13 06/01/21 History Simvastatin [Zocor] 20 mg PO HS 12/01/13 06/01/21 History Warfarin [Coumadin] 5 mg PO MOFR 12/01/13 06/01/21 History atenoloL [Tenormin] 25 mg PO DAILY 12/01/13 06/01/21 History Famotidine [Pepcid] 20 mg PO HS 08/09/15 06/01/21 History Warfarin [Coumadin] 2.5 mg PO SUTUWETHSA 08/09/15 06/01/21 History HYDROcodone/APAP 10-325MG [[place] 0.5 tab PO Q3H PRN 12/15/17 06/01/21 History 10-325] ALPRAZolam [Xanax] 0.25 mg PO TID PRN 06/01/21 06/01/21 History Gabapentin [Neurontin] 300 mg PO TID 06/01/21 06/01/21 History Nystatin 100,000Unit/gm Cream 1 applic TOPICAL BID 06/01/21 06/01/21 History [Mycostatin Cream] Propafenone HCl [Propafenone HCl 225 mg PO Q12HR 06/01/21 06/01/21 History ER] Allergies Allergy/AdvReac Type Severity Reaction Status Date / Time amoxicillin Allergy Anaphylaxis Verified 06/01/21 23:25 Penicillins Allergy Anaphylaxis Verified 06/01/21 23:25 morphine AdvReac Nausea & Verified 06/01/21 23:25 Vomiting Physical Exam Vitals: Vital Signs Temp Pulse Pulse Resp BP BP Pulse Ox 06/02/21 01:57 98.1 F 91 139/77 97 06/02/21 01:45 98.2 F 77 18 157/70 92 L 06/01/21 22:57 72 16 150/81 93 L 06/01/21 20:46 98.0 F 93 18 173/106 91 L Intake and Output 06/01/21 06/02/21 06/02/21 22:59 06:59 14:59 Other: Weight 79.379 kg 79.379 kg Results CBC & Chem 7: 06/01/21 21:40 06/02/21 10:25 Labs: Abnormal Lab Results - Last 24 Hours (Table) 06/01/21 06/01/21 Range/Units 21:35 21:40 PT 15.1 H (9.0-12.0) sec INR 1.5 H (<1.2) Sodium 133 L (137-145) mmol/L Glucose 124 H (74-99) mg/dL AST 43 H (14-36) U/L
--- NOTE | 2021-06-02 12:48 | P.CRDCN ---
History of Present Illness History of present illness: HISTORY OF PRESENTING ILLNESS This is a pleasant 86-year-old female past medical history significant for coronary artery disease status post PCI to the mid circumflex in 2006, paroxysmal atrial fibrillation (on coumadin), hypertension, hyperlipidemia, neuropathy bilateral toes, hypothyroidism. She follows in the office with Dr. Lowe. We have been asked to see in consultation for preoperative clearance. Patient presents emergency department after a fall at home. She states that she was at home in her garage, throwing the trash out, she states the floor is uneven in the garage and she tripped and fell on her left hip and her left arm. She was unable to ambulate afterwards secondary to the pain, her neighbor heard her and was able to help patient and presented to the emergency department for further evaluation. She denies any chest pain or shortness of breath. She denies lightheadedness, dizziness, syncope or pre syncope. She denies symptoms of orthopnea or PND or LE edema. She states lately she has not been feeling, decrease PO intake, endorses not taking her coumadin for total of 3 days. DIAGNOSTICS -Hip and pelvis x-ray revealed displaced subcapital fracture of the left femur. -Wrist x-ray revealed transverse distal metaphyseal radial and ulnar fractures with dorsal angulation. -CT brain and cervical spine revealed no acute fracture or dislocation. No acute intracranial process. Minor degenerative changes in the cervical spine. -EKG reveals atrial fibrillation, heart rate 60, no acute ST ST-T wave abnormalities. -Echocardiogram 02/04/2020 revealed an EF of 50%, mild tricuspid regurgitation, mild mitral regurgitation, moderate aortic regurgitation -Lexiscan stress test 10/2017 revealed no evidence of reversible ischemia. -Laboratory reviewed, CBC unremarkable, INR 1.5, sodium 133, potassium 4.4, BUN 17, serum creatinine 0.6 -Current cardiac medications include Coumadin 5 mg Sunday and Sunday and Coumadin 2.5 mg the other days of the week, simvastatin 20 mg nightly, Synthroid, atenolol 25 mg daily REVIEW OF SYSTEMS At the time of my exam: CONSTITUTIONAL: Denies fever or chills. CARDIOVASCULAR: Denies chest pain, shortness of breath, orthopnea, PND or palpitations. RESPIRATORY: Denies cough. GASTROINTESTINAL: Denies abdominal pain, diarrhea, constipation, nausea or vomiting. MUSCULOSKELETAL: +Left hip pain and +left wrist pain NEUROLOGIC: Denies numbness, tingling, headacbe or weakness. ENDOCRINE: Denies fatigue, weight change, polydipsia or polyurina. GENITOURINARY: Denies burning, hematuria or urgency with micturation. HEMATOLOGIC: Denies history of anemia or bleeding. PHYSICAL EXAMINATION Blood pressure 139/77, heart rate 91, afebrile, oxygen saturations greater than 92% on room air CONSTITUTIONAL: No apparent distress. HEENT: Head is normocephalic. Pupils are equal, round. Sclerae anicteric. Mucous membranes of the mouth are moist. No JVD. No carotid bruit. CHEST EXAMINATION: Lungs are clear to auscultation. No chest wall tenderness is noted on palpation or with deep breathing. HEART EXAMINATION: Irregular rate and rhythm. S1, S2 heard. No murmurs, gallops or rub. ABDOMEN: Soft, nontender. Positive bowel sounds. EXTREMITIES: 2+ peripheral pulses, no lower extremity edema and no calf tenderness. NEUROLOGIC EXAMINATION: Patient is awake, alert and oriented x3. ASSESSMENT Mechanical Fall at home Left hip femoral fracture Left distal radial and ulnar fractures with dorsal angulation Coronary artery disease status post PCI to the mid circumflex in 2006 Paroxysmal atrial fibrillation (on coumadin) Subtherapeutic INR History of hypertension Hyperlipidemia Hypothyroidism PLAN -Dr. Frankel is unable to see the patient prior to surgery scheduled at 4pm today. Patient's medical history and case was discussed with Dr. Frankel via phone, Dr. Frankel indicated patient can undergo surgery today. -Will obtain 2D echocardiogram -Continue home cardiac medications -Patient will need anticoagulation with coumadin or IV heparin after surgery for thromboembolism protection, pending surgery recommendations when ok to start. -Further recommendations based on clinical course Past Medical History Past Medical History: Atrial Fibrillation, Hyperlipidemia, Hypertension, Myocardial Infarction ([place]), Thyroid Disorder Additional Past Medical History / Comment(s): IBS, acute coloitis, 3 feces transplants at [facility] Last Myocardial Infarction Date:: 2006 History of Any Multi-Drug Resistant Organisms: C-DIFF Date of last positivie culture/infection: 2014 MDRO Source:: stool Past Surgical History: Cholecystectomy, Heart Catheterization With Stent, Hysterectomy, Orthopedic Surgery Additional Past Surgical History / Comment(s): left foot reconstruction surgery, pubic vaginal sling, partial hysterectomy, colonoscopy. Past Anesthesia/Blood Transfusion Reactions: No Reported Reaction Date of Last Stent Placement:: 2006 Past Psychological History: No Psychological Hx Reported Smoking Status: Never smoker Past Alcohol Use History: None Reported Additional Past Alcohol Use History / Comment(s): Patient denies history of smoking. She denies medical marijuana, marijuana, street drug or alcohol use. Patient is currently living alone. Past Drug Use History: None Reported - Past Family History Mother Family Medical History: Coronary Artery Disease (CAD) Father Family Medical History: Coronary Artery Disease (CAD) Son(s) Family Medical History: COPD Additional Family Medical History / Comment(s): Her maternal grandfather at age 54 from [place] Medications and Allergies Home Medications Medication Instructions Recorded Confirmed Type Butalb/Acetaminophen/Caffeine 1 tab PO Q6H PRN 12/01/13 06/01/21 History [Fioricet 50-325-40 mg Tablet] Levothyroxine Sodium [Synthroid] 50 mcg PO QAM 12/01/13 06/01/21 History Simvastatin [Zocor] 20 mg PO HS 12/01/13 06/01/21 History Warfarin [Coumadin] 5 mg PO MOFR 12/01/13 06/01/21 History atenoloL [Tenormin] 25 mg PO DAILY 12/01/13 06/01/21 History Famotidine [Pepcid] 20 mg PO HS 08/09/15 06/01/21 History Warfarin [Coumadin] 2.5 mg PO SUTUWETHSA 08/09/15 06/01/21 History HYDROcodone/APAP 10-325MG [[place] 0.5 tab PO Q3H PRN 12/15/17 06/01/21 History 10-325] ALPRAZolam [Xanax] 0.25 mg PO TID PRN 06/01/21 06/01/21 History Gabapentin [Neurontin] 300 mg PO TID 06/01/21 06/01/21 History Nystatin 100,000Unit/gm Cream 1 applic TOPICAL BID 06/01/21 06/01/21 History [Mycostatin Cream] Propafenone HCl [Propafenone HCl 225 mg PO Q12HR 06/01/21 06/01/21 History ER] Allergies Allergy/AdvReac Type Severity Reaction Status Date / Time amoxicillin Allergy Anaphylaxis Verified 06/01/21 23:25 Penicillins Allergy Anaphylaxis Verified 06/01/21 23:25 morphine AdvReac Nausea & Verified 06/01/21 23:25 Vomiting Physical Exam Vitals: Vital Signs Temp Pulse Pulse Resp BP BP Pulse Ox 06/02/21 01:57 98.1 F 91 139/77 97 06/02/21 01:45 98.2 F 77 18 157/70 92 L 06/01/21 22:57 72 16 150/81 93 L 06/01/21 20:46 98.0 F 93 18 173/106 91 L Intake and Output 06/01/21 06/02/21 06/02/21 22:59 06:59 14:59 Other: # Voids 0 Weight 79.379 kg 79.379 kg Results 06/01/21 21:40 06/02/21 10:25 Cardiac Enzymes 06/01/21 Range/Units 21:40 AST 43 H (14-36) U/L Coagulation 06/01/21 Range/Units 21:35 PT 15.1 H (9.0-12.0) sec CBC 06/01/21 Range/Units 21:40 WBC 9.3 (3.8-10.6) k/uL RBC 4.15 (3.80-5.40) m/uL Hgb 13.2 (11.4-16.0) gm/dL Hct 38.9 (34.0-46.0) % Plt Count 215 (150-450) k/uL Comprehensive Metabolic Panel 06/01/21 Range/Units 21:40 Sodium 133 L (137-145) mmol/L Potassium 4.4 (3.5-5.1) mmol/L Chloride 105 (98-107) mmol/L Carbon Dioxide 22 (22-30) mmol/L BUN 17 (7-17) mg/dL Creatinine 0.63 (0.52-1.04) mg/dL Glucose 124 H (74-99) mg/dL Calcium 8.9 (8.4-10.2) mg/dL AST 43 H (14-36) U/L ALT 22 (4-34) U/L Alkaline Phosphatase 90 (38-126) U/L Total Protein 6.7 (6.3-8.2) g/dL Albumin 3.7 (3.5-5.0) g/dL Current Medications Generic Name Dose Route Start Last Admin Trade Name Freq PRN Reason Stop Dose Admin Acetaminophen 650 mg 06/01/21 23:13 Acetaminophen Tab 325 Mg Tab PO Q6HR PRN Mild Pain or Fever > 100.5 Acetaminophen/Butalbital/Caffeine 1 each 06/02/21 09:54 Butalb/Apap/Caff 50-325-40mg Tab PO Q6H PRN Migraine Headache Hydrocodone Bitart/Acetaminophen 0.5 each 06/02/21 09:54 Hydrocodone/Apap 10-325mg 1 Each Tab PO Q3H PRN Pain Alprazolam 0.25 mg 06/02/21 09:54 Alprazolam 0.25 Mg Tab PO TID PRN Anxiety Atenolol 25 mg 06/02/21 10:00 Atenolol 25 Mg Tab PO DAILY [facility] Cholecalciferol 50 mcg 06/03/21 09:00 Cholecalciferol 25 Mcg (1000 Iu) Tablet PO DAILY [facility] Gabapentin 300 mg 06/02/21 10:00 Gabapentin 300 Mg Cap PO TID [facility] Hydromorphone HCl 1 mg 06/02/21 09:46 06/02/21 09:53 Hydromorphone 1 Mg/Ml 1 Ml Syringe IVP 1 mg Q3HR PRN Administration Moderate Pain Sodium Chloride 1,000 mls @ 120 mls/hr 06/01/21 23:15 06/02/21 09:24 Saline 0.9% IV Not Given .Q8H20M [facility] Levothyroxine Sodium 50 mcg 06/03/21 06:30 Levothyroxine 50 Mcg Tab PO QAM@0630 [facility] Naloxone HCl 0.2 mg 06/01/21 23:13 Naloxone 0.4 Mg/Ml 1 Ml Vial IV Q2M PRN Opioid Reversal Propafenone HCl 150 mg 06/02/21 10:00 Propafenone 150 Mg Tab PO TID [facility] Intake and Output 06/01/21 06/02/21 06/02/21 22:59 06:59 14:59 Other: # Voids 0 Weight 79.379 kg 79.379 kg 06/01/21 21:40 06/01/21 21:40
[2021-06-02 14:23] LABS: Creatine Kinase MB 5.7 ng/mL (0.0-2.4)
[2021-06-02] MEDS ORDERED: VANCOMYCIN 1,250 MG in SODIUM CHLORIDE 0.9% 250 ML IVPB ONE (18:00)
[2021-06-02] MEDS ORDERED: TRANEXAMIC ACID 1,000 MG in SODIUM CHLORIDE 0.9% 100 ML IVPB ONE ×4 (19:19)
[2021-06-02] MEDS ORDERED: LACTATED RINGERS 1,000 ML IV ONE ×2 (19:47→22:33)
[2021-06-02] MEDS ORDERED: SODIUM CHLORIDE 0.9% 100 ML BAG ONE (20:19)
[2021-06-02] MEDS ORDERED: NEOSTIGMINE 1 MG/ML 10 ML VIAL ONE (20:19)
[2021-06-02] MEDS ORDERED: ROCURONIUM 10 MG/ML (5 ML VIAL) IV ONE (20:19)
[2021-06-02] MEDS ORDERED: ePHEDrine 50 MG/ML 1 ML AMP ONE (20:19)
[2021-06-02] MEDS ORDERED: .fentaNYL (PF) 50 MCG/ML 2 ML AMP ONE (20:19)
[2021-06-02] MEDS ORDERED: GLYCOPYRROLATE 0.2 MG/ML 2 ML VIAL ONE (20:19)
[2021-06-02] MEDS ORDERED: TRANEXAMIC ACID 1,000 MG/10 ML VIAL ONE (20:19)
[2021-06-02] MEDS ORDERED: SUCCINYLCHOLINE CHLORIDE 100 MG/5 ML SYR IV ONE (20:19)
[2021-06-02] MEDS ORDERED: LIDOCAINE 1% INJ 10MG/ML (20 ML MDV) ONE (20:19)
[2021-06-02] MEDS ORDERED: CLINDAMYCIN 600 MG in SODIUM CHLORIDE 0.9% 1,000 ML IRRIGATION ONE (20:49)
[2021-06-02] MEDS ORDERED: NALOXONE 0.4 MG/ML 1 ML VIAL IV PRN (21:44)
--- NOTE | 2021-06-02 21:49 | P.PN ---
Progress Note - Text Progress Note Date: 06/02/21 Brief post op Pt s/e in PACU. She is still groggy but stable. VSS,. NSG at bedside. She will transfer to her room when she is awake and stable per pacu staff and anesthesia services.
[2021-06-02] MEDS ORDERED: HYDROmorphone 0.5 MG/0.5 ML SYRINGE IVP ONE (22:00)
[2021-06-02] MEDS ORDERED: ONDANSETRON 4 MG/2 ML VIAL ONE (22:08)
[2021-06-02] MEDS ORDERED: ONDANSETRON 4 MG/2 ML VIAL IVP ONE (22:12)
--- NOTE | 2021-06-02 23:14 | XR ---
EXAMINATION TYPE: XR Hip Limited LT DATE OF EXAM: 06/02/2021 COMPARISON: NONE HISTORY: Hip surgery TECHNIQUE: Single view FINDINGS: There is left hip prosthesis. Components appear in anatomic position. IMPRESSION: No complicating process seen.
[2021-06-03] MEDS: GABAPENTIN 300 MG CAP PO SCH ×4 (01:44→21:20)
[2021-06-03] MEDS: HYDROmorphone 1 MG/ML 1 ML SYRINGE IVP PRN ×3 (02:14→14:02)
[2021-06-03] MEDS: PROPAFENONE 150 MG TAB PO SCH ×4 (03:18→21:21)
[2021-06-03] MEDS: LEVOTHYROXINE 50 MCG TAB PO SCH (05:50)
[2021-06-03] MEDS: SODIUM CHLORIDE 0.9% 1,000 ML IV SCH ×3 (05:51→17:26)
--- NOTE | 2021-06-03 07:58 | P.OP ---
Date of Procedure: 06/02/21 Preoperative Diagnosis: 1. Lt femoral neck fracture 2. Lt distal radius fracture 3. s/p ffs Postoperative Diagnosis: 1. Lt femoral neck fracture 2. Lt distal radius fracture 3. s/p ffs Procedure(s) Performed: 1. Lt hip hemiarthroplasty Implants: S&N F: 4 49/28 head +0 Anesthesia: GETA Surgeon: Alber Orell[employer] Manager #1: Bertram Upton (Was present for the entire case and necessary) Estimated Blood Loss (ml): 50 IV fluids (ml): 900 Urine output (ml): 100 Pathology: none sent Condition: stable Disposition: PACU Indications for Procedure: 86 yo female sustained a ffs at home while she was in her garage. She was unable to ambulate after the fall due to her Lt hip and wrist pain. She was brought by EMS to the ED. She was found to have a Lt hip and wrist fracture. Yousif plummer discussed treatment options. She stated no BHT but she did LOC with the fall and was worked up by cardio prior to the procedure and cleared. We discussed all risks and benefits of surgery. She was ammendable to operative fixation of this left hip and in a couple of days we will complete her treatment with ORIF of her DR. She was in agreement. Description of Procedure: The patient was seen and examined in the preoperative area. All preoperative protocols were followed. Informed consent was obtained risks and benefits of the procedure were discussed at length. Risks including bleeding infection damage to the surrounding tissue and risk of reoperation were discussed with the patient. Risk of anesthesia up to and including was a discussed with the patient. These are outlined in the risk reviewed. They were willing to accept these risks and all of the risks of surgery. The patient was given a weight- based dose of antibiotics in the form of vancomycin weight-based dose. The patient was seen and evaluated by the anesthesia team who deemed them fit for surgery. The site was marked, the patient was willing to proceed with the procedure. The patient was transferred to the operative suite by the Department of anesthesia. There were then drifted off to sleep by the department of anesthesia and GETA anesthesia was used. Once adequate anesthesia had been obtained the patient was carefully transferred to the operative bed. All bony prominences were padded accordingly. SCDs were placed on the nonoperative lower extremities. Arms were well padded. Patient was placed on the pegboard in the right lateral to his position actually rolls placed all bony prominences padded accordingly R was placed on pillows the nonoperative leg was well-padded as well and secured to the table. 10:15 drapes were placed from the operative field and the patient was secured to the table safety strap. Preoperative briefing was done with the operative team and everyone was ready for the procedure to start. The patients left leg was then prepped and draped in the normal sterile fashion. Timeout was then performed and all parties in agreement with the procedure to be performed. Standard posterior approach to the hip was performed skin incision made over the tip of the greater trochanter taken down to the tensor fascia which was then split longitudinally with its fibers and Charnley retractors and placed the hip was eventually rotated and the posterior external rotators were identified peripheral risks was identified and tagged and then released along with the short external rotators. Capsulotomy was then performed and an L shape. The fracture was highly comminuted in this area and performed a cleanup cut then of the femoral neck Hohmann retractors were placed around the superior and inferior portion of the femoral neck and a template used to zarina with a made a cleanup cut of the femoral neck using a saw. We then removed the femoral head with a corkscrew this was removed easily incised. We then sized the acetabulum with a trial sizer. Once this performed with then internal rotated and abducted the leg to allow for visualization of the canal. Box osteotome was used to lateralize to the shoulder. We then used a canal finder as well as rent tail noted to lateralize and accessed the canal. Sequential broaching was then performed until a broach size was entered that was stable. Once this broach was stable we trialed it with a standard neck and 0 head the hip was reduced appropriately and atraumatically I was then taken through range of motion and was completely stable. Leg lengths were then assessed and were equal. We then atraumatically dislocated the hip and removed the components the broach remained stable until final components were selected broach was removed copious irrigation of the femoral canal as well as acetabular was then performed with antibiotic saline solution. Following normal sterile saline. We then cleaned any edges or bone fragments from the area. We then inserted the final femoral stem was impacted into place and sat well. Then cleaned the trunnion and dried it and the bipolar head was then impacted onto the trunnion and tested and was stable. We then atraumatically reduce the hip to get through range of motion and was stable and leg lengths were equal. Then copiously irrigated the wound with normal sterile saline. A posterior capsular as well as posterior external rotator repair was performed to a drill bit was used to drill 3 holes in the posterior aspect of the greater trochanter Ethibond stitch was passed through the posterior external rotators and piriformis and these were passed through the bone tunnels with a suture passer. They were then tied and secured. Then over sewed this area with Ethibond stitch in a [id number] fashion for a tight closure. Sharman was then removed we irrigated superficially. #1 Vicryl was then used in a running locking fashion to close the tensor fascia. We then used 0 Vicryl in the deep subcu tissue followed by 2-0 Vicryl in the superficial subcu tissue and matteo in the skin. The wound edges approximated very well. The wound was then cleaned with alcohol dried and dressed with a sterile Opti foam dressing. The patient was then transferred back to their hospital bed. There were awakened by department of anesthesia having tolerated the procedure very well with no complications. The patient was then transported to the postoperative care unit in stable condition.
[2021-06-03 08:07] LABS: Basophils % (A) 0 %; Eosinophils % (A) 0 %; HCT 39.2 % (34.0-46.0); HGB 13.1 gm/dL (11.4-16.0); Lymphocytes # (A) 0.9 k/uL (1.0-4.8); Lymphocytes % (A) 7 %; MCH 31.7 pg (25.0-35.0); MCHC 33.5 g/dL (31.0-37.0); MCV 94.7 fL (80.0-100.0); Mean Platelet Volume 8.2; Monocytes # (A) 1.1 k/uL (0-1.0); Monocytes % (A) 9 %; Neutrophils # (A) 10.8 k/uL (1.3-7.7); Neutrophils % (A) 82 %; Platelet Count 208 k/uL (150-450); RBC 4.14 m/uL (3.80-5.40); RDW 12.3 % (11.5-15.5); WBC 13.1 k/uL (3.8-10.6)
[2021-06-03 08:18] LABS: INR 1.7 (<1.2)
[2021-06-03 08:21] LABS: Albumin 3.2 g/dL (3.5-5.0); Calcium 8.7 mg/dL (8.4-10.2); Total Bilirubin 0.9 mg/dL (0.2-1.3); Total Protein 6.2 g/dL (6.3-8.2)
[2021-06-03] MEDS: HYDROcodone/APAP 5-325MG 1 EACH TAB PO PRN ×2 (08:55→16:20)
--- NOTE | 2021-06-03 09:10 | XR ---
EXAMINATION TYPE: XR Hip LT and AP Pelvis DATE OF EXAM: 06/03/2021 COMPARISON: Pelvic and left hip x-ray 2 days earlier HISTORY: Persistent pain, recent fracture and surgery. TECHNIQUE: A single AP view of the pelvis is obtained. Two views of the left hip are obtained. FINDINGS: Metallic hardware from total left hip arthroplasty is satisfactory in position. Evidence of recent surgery with adjacent subcutaneous gas and lateral vertical skin matteo. No additional fracture or dislocation in pelvis. [id number] axial joint space loss and spurring in right hip joint. Occasional scattered tiny pelvic phleboliths. IMPRESSION: As above. No evidence of new fracture or complication.
[2021-06-03] MEDS: CHOLECALCIFEROL 25 MCG (1000 IU) TABLET PO SCH (09:17)
[2021-06-03] MEDS: ENOXAPARIN 40 MG/0.4 ML SYRINGE SQ SCH (09:17)
[2021-06-03] MEDS: atenoloL 25 MG TAB PO SCH (09:17)
--- NOTE | 2021-06-03 10:32 | P.PN ---
Subjective This is a pleasant 86-year-old female past medical history significant for coronary artery disease status post PCI to the mid circumflex in 2006, par oxysmal atrial fibrillation (on coumadin), hypertension, hyperlipidemia, neuropathy bilateral toes, hypothyroidism. She follows in the office with Dr. Lowe. We have been asked to see in consultation for preoperative clearance. Patient presents emergency department after a fall at home. She states that she was at home in her garage, throwing the trash out, she states the floor is uneven in the garage and she tripped and fell on her left hip and her left arm. She was unable to ambulate afterwards secondary to the pain, her neighbor heard her and was able to help patient and presented to the emergency department for further evaluation. Xrays revealed Left hip femoral neck fracture completely displaced and Left distal radial and transverse distal metaphyseal radial and ulnar fractures with dorsal angulation. EKG on admission revealed atrial fibrillation with controlled rate. Orthopedics evaluated the patient, patient underwent Left hip hemiarthroplasty on 06/02/21. Plan for left wrist surgery in about a week per patient 06/03/2021: Patient seen and examined at bedside, no acute distress. She is having pain at the left hip. She denies any shortness of breath or chest pain. Her coumadin is still on hold per surgery. She is currently maintained on atenolol 25 mg daily, subcu Lovenox. Laboratory reviewed, INR 1.7, WBC 13.1, hemoglobin 13, platelets 208, sodium 135, potassium 5.0, BUN 17, serum creatinine 0.7 PHYSICAL EXAMINATION Blood pressure 152/82, heart rate 74, afebrile, oxygen saturations >92% on room air CONSTITUTIONAL: No apparent distress. HEENT: Neck Supple. No JVD CHEST EXAMINATION: Lungs are clear to auscultation. No chest wall tenderness is noted on palpation or with deep breathing. HEART EXAMINATION: Irregular rate and rhythm. S1, S2 heard. No murmurs, gallops or rub. ABDOMEN: Soft, nontender. Positive bowel sounds. EXTREMITIES: 2+ peripheral pulses, no lower extremity edema SKIN: Left hip covered in bandage NEUROLOGIC EXAMINATION: Patient is awake, alert and oriented x3. ASSESSMENT Mechanical Fall at home Left hip femoral fracture Left distal radial and ulnar fractures with dorsal angulation Coronary artery disease status post PCI to the mid circumflex in 2006 Paroxysmal atrial fibrillation (on coumadin) Subtherapeutic INR History of hypertension Hyperlipidemia Hypothyroidism PLAN -Will obtain 2D echocardiogram -Monitor patient on cardiac telemetry -Continue home cardiac medications -Patient will need anticoagulation with coumadin or IV heparin after surgery for thromboembolism protection, pending surgery recommendations when ok to start. -Further recommendations based on clinical course Objective - Vital Signs Vital signs: Vital Signs Temp 98.2 F 06/03/21 07:30 Pulse 78 06/03/21 07:30 Resp 20 06/03/21 07:30 BP 160/78 06/03/21 07:30 Pulse Ox 99 06/03/21 07:30 Intake & Output 06/02/21 06/03/21 06/03/21 18:59 06:59 18:59 Intake Total 1440 705 Output Total 550 Balance 1440 155 Weight 79.379 kg Intake: IV 705 Intake, IV Titration 1440 Amount Sodium Chloride 0.9% 1, 1440 000 ml @ 120 mls/hr IV . Q8H20M [facility] Rx#:[id number] Oral 0 Output: Urine 500 Estimated Blood Loss 50 Other: Voiding Method Indwelling Catheter Indwelling Catheter Indwelling Catheter # Voids 0 # Bowel Movements 0 - Labs CBC & Chem 7: 06/03/21 07:44 06/03/21 07:44 Labs: Abnormal Lab Results - Last 24 Hours (Table) 06/02/21 06/02/21 06/02/21 Range/Units 10:25 10:25 13:09 WBC (3.8-10.6) k/uL Neutrophils # (1.3-7.7) k/uL Lymphocytes # (1.0-4.8) k/uL Monocytes # (0-1.0) k/uL PT (9.0-12.0) sec INR (<1.2) Sodium 134 L (137-145) mmol/L Glucose 132 H (74-99) mg/dL AST (14-36) U/L Total Creatine Kinase 288 H 322 H (30-135) U/L CK-MB (CK-2) 6.5 H 5.7 H (0.0-2.4) ng/mL Total Protein (6.3-8.2) g/dL Albumin (3.5-5.0) g/dL 06/03/21 06/03/21 06/03/21 Range/Units 07:44 07:44 07:44 WBC 13.1 H (3.8-10.6) k/uL Neutrophils # 10.8 H (1.3-7.7) k/uL Lymphocytes # 0.9 L (1.0-4.8) k/uL Monocytes # 1.1 H (0-1.0) k/uL PT 17.0 H (9.0-12.0) sec INR 1.7 H (<1.2) Sodium 135 L (137-145) mmol/L Glucose 124 H (74-99) mg/dL AST 48 H (14-36) U/L Total Creatine Kinase (30-135) U/L CK-MB (CK-2) (0.0-2.4) ng/mL Total Protein 6.2 L (6.3-8.2) g/dL Albumin 3.2 L (3.5-5.0) g/dL
--- NOTE | 2021-06-03 10:40 | ECHOF ---
Referral Reason:surgical clearance MEASUREMENTS -------- HEIGHT: 175.3 cm WEIGHT: 79.4 kg BP: RVIDd: 3.8 cm (< 3.3) IVSd: 1.2 cm (0.6 - 1.1) LVIDd: 3.9 cm (3.9 - 5.3) LVPWd: 1.9 cm (0.6 - 1.1) IVSs: 1.7 cm LVIDs: 3.4 cm LVPWs: 1.5 cm Ao Diam: 3.0 cm (2.0 - 3.7) AV Cusp: 1.5 cm (1.5 - 2.6) LA Diam: 4.7 cm (2.7 - 3.8) MV EXCURSION: 13.601 mm (> 18.000) MV EF SLOPE: 51 mm/s (70 - 150) EPSS: 1.0 cm RAP: 5.00 mmHg RVSP: 31.23 mmHg FINDINGS -------- Sinus rhythm. Pt has L hip fx. not able to turn, no apicals. The left ventricular size is normal. Left ventricular wall thickness is normal. Overall left vent ricular systolic function is mildly impaired with, an EF between 45 - 50 %. The right ventricle is moderately enlarged. There is mild aortic valve sclerosis. Mild tricuspid regurgitation present. Right ventricular systolic pressure is normal at < 35 mmHg. The pulmonic valve was not well visualized. There is no pericardial effusion. CONCLUSIONS -------- 1. Pt has L hip fx. not able to turn, no apicals. 2. The left ventricular size is normal. 3. Left ventricular wall thickness is normal. 4. Overall left ventricular systolic function is mildly impaired with, an EF between 45 - 50 %. 5. The right ventricle is moderately enlarged. 6. There is mild aortic valve sclerosis. 7. Mild tricuspid regurgitation present. 8. The pulmonic valve was not well visualized. 9. There is no pericardial effusion. SECOND CHEF: Nataliia Irvin RDCS
[2021-06-03] MEDS ORDERED: ONDANSETRON 4 MG/2 ML VIAL IVP PRN ×2 (11:12)
--- NOTE | 2021-06-03 11:22 | P.PN ---
Subjective Progress Note Date: 06/03/21 Principal diagnosis: Left hip femoral neck fracture Patient seen at bedside this morning resting simply sitting up in chair eating breakfast. Patient does say she is still in significant pain over the left hip. Patient says she didn't get up physical therapy today moved from the bed to the chair using walker. Patient is also complaining of left wrist pain. Splint is in place for left wrist. Patient says she has not had bowel movement yet, however, patient says she's been passing gas. Patient says she has also been using incentive spirometer. Patient is aware that she is going to surgery tomorrow, 06/04/2020 to repair wrist fracture. Patient denies chest pain, fever, shortness breath, nausea, vomiting, change in vision, loss of bowel/bladder control. Objective - Vital Signs Vital signs: Vital Signs Temp 98.2 F 06/03/21 07:30 Pulse 78 06/03/21 07:30 Resp 20 06/03/21 07:30 BP 160/78 06/03/21 07:30 Pulse Ox 99 06/03/21 07:30 Intake & Output 06/02/21 06/03/21 06/03/21 18:59 06:59 18:59 Intake Total 1440 705 Output Total 550 Balance 1440 155 Weight 79.379 kg Intake: IV 705 Intake, IV Titration 1440 Amount Sodium Chloride 0.9% 1, 1440 000 ml @ 120 mls/hr IV . Q8H20M [facility] Rx#:[id number] Oral 0 Output: Urine 500 Estimated Blood Loss 50 Other: Voiding Method Indwelling Catheter Indwelling Catheter Indwelling Catheter # Voids 0 # Bowel Movements 0 - Exam Inspection: Silver optifoam dressing in place. Incision is clan, dry, intact. Shirley in good place/well aligned. There is no evidence of ecchymosis, erythema, open fractures on left leg. Sensation: Sensation is equal, symmetric, bilaterally intact throughout. Palpation: There is significant tenderness to palpation diffusely throughout the left hip especially in the groin. Nontender to palpation throughout rest exam Range of motion: Patient is able to flex and exetnd digits in left foot and plantar/dorsiflex left ankle. Left hip/knee ROM limited due to pain. Patient has full range of motion in bilateral UE and RLE Motor: Right leg - 5/5 in resisted hip flexion/extension, knee flexion/extension, plantar flexion/dorsiflexion the right ankle; 5/5 in resisted elbow flexion/extension, wrist flexion/extension, shoulder abduction, internal/external rotation of the bilateral UE. Left leg motor exams limited due to patient's pain. Catalogue Maker strength 4/5 in bilateral UE Neurovascular: Refill under 3 seconds bilaterally in upper extremity digits. DP pulses intact, bilaterally, 2+. - Labs CBC & Chem 7: 06/03/21 07:44 06/03/21 07:44 Labs: Abnormal Lab Results - Last 24 Hours (Table) 06/02/21 06/02/21 06/03/21 Range/Units 10:25 13:09 07:44 WBC 13.1 H (3.8-10.6) k/uL Neutrophils # 10.8 H (1.3-7.7) k/uL Lymphocytes # 0.9 L (1.0-4.8) k/uL Monocytes # 1.1 H (0-1.0) k/uL PT (9.0-12.0) sec INR (<1.2) Sodium (137-145) mmol/L Glucose (74-99) mg/dL AST (14-36) U/L Total Creatine Kinase 322 H (30-135) U/L CK-MB (CK-2) 6.5 H 5.7 H (0.0-2.4) ng/mL Total Protein (6.3-8.2) g/dL Albumin (3.5-5.0) g/dL 06/03/21 06/03/21 Range/Units 07:44 07:44 WBC (3.8-10.6) k/uL Neutrophils # (1.3-7.7) k/uL Lymphocytes # (1.0-4.8) k/uL Monocytes # (0-1.0) k/uL PT 17.0 H (9.0-12.0) sec INR 1.7 H (<1.2) Sodium 135 L (137-145) mmol/L Glucose 124 H (74-99) mg/dL AST 48 H (14-36) U/L Total Creatine Kinase (30-135) U/L CK-MB (CK-2) (0.0-2.4) ng/mL Total Protein 6.2 L (6.3-8.2) g/dL Albumin 3.2 L (3.5-5.0) g/dL Assessment and Plan Assessment: 1. Left hip femoral neck fracture - Postoperative day 1 status post left hip hemiarthroplasty 2. Left distal radius & ulnar fractures Plan: 1. Left femoral neck fracture - surgery performed yesterday, , 06/02/2021 - left hip hemiarthroplasty. Patient stable at bedside today. 2. Left distal radius and ulnar fractures - splint in place. surgery scheduled for tomorrow, 06/04/2021, - ORIF left wrist. NPO after midnight tonight 3. Appreciate medical management 4. Pain management - Tylenol ; [place]; Gabapentin; dilaudid if needed 5. DVT prophylaxis - Lovenox; Will resume Coumadin on Sunday06/05/2021 6. GI prophylaxis - senna 7. PT/OT - wbat left leg with walker and assistance. NWB left arm 8. Discharge planning - plan discharge to subacute rehab 06/06/2021 vs Sunday06/07/2021 Time with Patient: Less than 30
--- NOTE | 2021-06-03 12:19 | P.PN ---
Subjective Progress Note Date: 06/03/21 HISTORY OF PRESENT ILLNESS This is an 86-year-old female patient of Dr. 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 Patient states that she went out into the garage to put some pain in the garbage and she ended up having a fall and experienced significant pain in the left hip and left wrist was unable to get up off the ground. She started dragging herself across the garage floor and was next to the large grudge door started pounding out of the next her neighbor heard her. Neighbor called EMS and patient was brought into the clinic in [facility] emergency center for evaluation. EKG was atrial fibrillation with no acute ST changes. Initial blood pressure 173/106 with recheck of 150/81, afebrile, heart rate in 70s and 90s, pulse ox 91%. CBC was unremarkable with hemoglobin 13.2. Sodium 133 otherwise electrolytes and renal function normal. Blood sugar 124. AST 43. CK 288. Coronavirus not detected. Left hip and pelvis x-rays revealed displaced subcapital fracture of the left femur. Chest x-ray reveals mild subsegmental atelectasis or fibrotic changes are increased compared to last exam. Cardiomegaly. No heart failure. CAT scan of the brain and cervical spine revealed no acute intracranial abnormality. Minor degenerative changes in the cervical spine. No fracture. No change. Fibrotic changes noted at the lung apices. X-ray of the left wrist revealed transverse distal metaphyseal radial and ulnar fractures with dorsal angulation. Ulnar styloid avulsion. Patient has been admitted to orthopedics with plan for left hip hemiarthroplasty this afternoon and left wrist open reduction and internal fixation on 06/04. Regarding Coumadin, patient states that she has not been feeling well and has not taken Coumadin for the past 2 days. Patient is complaining of significant left foot pain which is been chronic and she normally sleeps in a chair. Pain medications have been ordered and we will resume gabapentin, Xanax and atenolol to be given prior to surgery today. Consult with cardiology added for clearance secondary to atrial fibrillation and history of [place]. 06/03: Patient is found today sitting up in recliner and appears to be comfortable. She has a Ocampo catheter in place with plan for removal and urinalysis to be checked. Yesterday, patient underwent left hip hemiarthroplasty. Patient was also evaluated by cardiology with recommendations to continue home medications and will need anticoagulation with Coumadin or IV heparin after surgery. Patient is scheduled to undergo left wrist open reduction internal fixation tomorrow and we will plan to resume Coumadin following the procedure. Patient has been afebrile, heart rate 78, blood pressure 160/70, pulse ox 99% on 4 L nasal cannula. INR 1.7. Creatinine 0.79. Blood sugar 124. Discharge plan is for [facility] for subacute rehab most likely on Sunday. Echocardiogram reveals EF 45-50%, mild aortic valve sclerosis, mild tricuspid regurgitation. REVIEW OF SYSTEMS Constitutional: No fever, no chills, no night sweats. No weight change. No weakness, fatigue or lethargy. No daytime sleepiness. EENT: No headache. No blurred vision or double vision, no loss of vision. No loss of Hearing, no ringing in the ears, no dizziness. No nasal drainage or congestion. No epistaxis. No sore throat. Lungs: No shortness of breath, cough, no sputum production. No wheezing. Cardiovascular: No chest pain, no lower extremity edema. No palpitations. No paroxysmal nocturnal dyspnea. No orthopnea. No lightheadedness or dizziness. No syncopal episodes. Abdominal: No abdominal pain. No nausea, vomiting. No diarrhea. No constipation. No bloody or tarry stools. No loss of appetite. Genitourinary: No dysuria, increased frequency, urgency. No urinary retention. Musculoskeletal: No myalgias. No muscle weakness, no gait dysfunction, no frequent falls. No back pain. No neck pain. Reports left hip and left wrist discomfort. Integumentary: No wounds, no lesions. No rash or pruritus. No unusual bruising. No change in hair or nails. Neurologic: No aphasia. No facial droop. No change in mentation. No head injury. No headache. No paralysis. No paresthesia. Psychiatric: No depression. No anxiety. No mood swings. Endocrine: No abnormal blood sugars. No weight change. No excessive sweating or thirst. No cold intolerance. PHYSICAL EXAMINATION Gen: This is 86-year-old laying in bed and appears to be quite uncomfortable secondary to pain mostly to the left foot. HEENT: Head is atraumatic, normocephalic. Pupils equal, round. Sclerae is anicteric. NECK: Supple. No JVD. No lymphadenopathy. No thyromegaly. LUNGS: Clear to auscultation. No wheezes or rhonchi. No intercostal retractions. HEART:Regularly irregular rate and rhythm. Systolic murmur. ABDOMEN: Soft. Bowel sounds are present. No masses. No tenderness. Possibly draining clear glenn urine. EXTREMITIES: No pedal edema. No calf tenderness. Left hip wound with no sign of infection, splint in place to the left forearm. NEUROLOGICAL: Patient is awake, alert and oriented x3. Cranial nerves 2 through 12 are grossly intact. ASSESSMENT AND PLAN 1. Left femur fracture status post left hip hemiarthroplasty 06/02. Continue current pain management, PT and OT per per orthopedics, Coumadin is currently on hold until after surgery scheduled 06/04. Remove Ocampo catheter today. 2. Left radial and ulnar fractures. Patient is scheduled for left wrist open reduction and internal fixation on 06/04. Continue to hold Coumadin 3. History of coronary artery disease with previous myocardial infarction in 2006 status post stent. Consult with cardiology appreciated. 4. Paroxysmal atrial fibrillation. Patient is continued on Rythmol 150 mg 3 times daily, atenolol 25 mg daily, hold Coumadin for surgery, cardiology consult. 5. Hyperlipidemia. Hold simvastatin. 6. Hypertension, hypertensive cardiovascular disease. Continue atenolol and Rythmol. 7. Hypothyroidism. Continue levothyroxine 50 g daily. 8. Migraine headaches. Continue Fioricet as needed. 9. Gastroesophageal reflux disease. Continue Pepcid 20 mg at bedtime. 10. Generalized anxiety disorder. Continue Xanax 0.5 mg 2 times daily. 11. Chronic left foot pain and neuropathy. Continue gabapentin 300 mg 3 times daily, [place] 10 one half tablet every 3 hours as needed. 12. COVID-19 testing negative. Patient has been hospitalized during a pandemic. DISCHARGE PLAN Subacute rehab at [facility] on Sunday. Impression and plan of care have been directed as dictated by the signing physician. Basilia Rodriguez nurse practitioner acting as scribe for signing physician. Objective - Vital Signs Vital signs: Vital Signs Temp 98.2 F 06/03/21 07:30 Pulse 78 06/03/21 07:30 Resp 20 06/03/21 07:30 BP 160/78 06/03/21 07:30 Pulse Ox 99 06/03/21 07:30 Intake & Output 06/02/21 06/03/21 06/03/21 18:59 06:59 18:59 Intake Total 1440 705 Output Total 550 Balance 1440 155 Weight 79.379 kg Intake: IV 705 Intake, IV Titration 1440 Amount Sodium Chloride 0.9% 1, 1440 000 ml @ 120 mls/hr IV . Q8H20M [facility] Rx#:[id number] Oral 0 Output: Urine 500 Estimated Blood Loss 50 Other: Voiding Method Indwelling Catheter Indwelling Catheter Indwelling Catheter # Voids 0 # Bowel Movements 0 - Labs CBC & Chem 7: 06/03/21 07:44 06/03/21 07:44 Labs: Abnormal Lab Results - Last 24 Hours (Table) 06/02/21 06/02/21 06/02/21 Range/Units 10:25 10:25 13:09 WBC (3.8-10.6) k/uL Neutrophils # (1.3-7.7) k/uL Lymphocytes # (1.0-4.8) k/uL Monocytes # (0-1.0) k/uL PT (9.0-12.0) sec INR (<1.2) Sodium 134 L (137-145) mmol/L Glucose 132 H (74-99) mg/dL AST (14-36) U/L Total Creatine Kinase 288 H 322 H (30-135) U/L CK-MB (CK-2) 6.5 H 5.7 H (0.0-2.4) ng/mL Total Protein (6.3-8.2) g/dL Albumin (3.5-5.0) g/dL 06/03/21 06/03/21 06/03/21 Range/Units 07:44 07:44 07:44 WBC 13.1 H (3.8-10.6) k/uL Neutrophils # 10.8 H (1.3-7.7) k/uL Lymphocytes # 0.9 L (1.0-4.8) k/uL Monocytes # 1.1 H (0-1.0) k/uL PT 17.0 H (9.0-12.0) sec INR 1.7 H (<1.2) Sodium 135 L (137-145) mmol/L Glucose 124 H (74-99) mg/dL AST 48 H (14-36) U/L Total Creatine Kinase (30-135) U/L CK-MB (CK-2) (0.0-2.4) ng/mL Total Protein 6.2 L (6.3-8.2) g/dL Albumin 3.2 L (3.5-5.0) g/dL
[2021-06-03 13:13] VITALS: BMI 25.8
[2021-06-03 16:09] LABS: Appearance,Urine Cloudy (Clear); Bilirubin,Urine Negative (Negative); Blood,Urine Moderate (Negative); Color,Urine Yellow; Glucose,Urine (UA) Negative (Negative); Hyaline Casts,Urine 7 /lpf (0-2); Ketones,Urine Negative (Negative); Leukocyte Esterase,Urine Moderate (Negative); Mucus,Urine Many /hpf; Nitrite,Urine Negative (Negative); PH, Urine 5.5 (5.0-8.0); Protein,Urine 1+ (Negative); RBC,Urine 42 /hpf (0-5); Specific Gravity,Urine 1.033 (1.001-1.035); Squamous Epithelial Cell,Urine <1 /hpf (0-4); Urobilinogen,Urine <2.0 mg/dL (<2.0); WBC,Urine 28 /hpf (0-5)
[2021-06-03 21:09] LABS: Glucose,Whole Blood 129 mg/dL (75-99)
[2021-06-03] MEDS: SENNOSIDES-DOCUSATE SODIUM 1 EACH TAB PO SCH (21:20)
[2021-06-04] MEDS: SODIUM CHLORIDE 0.9% 1,000 ML IV SCH ×3 (03:06→21:33)
[2021-06-04] MEDS: HYDROmorphone 0.5 MG/0.5 ML SYRINGE IVP PRN ×2 (05:26→16:29)
[2021-06-04] MEDS: LEVOTHYROXINE 50 MCG TAB PO SCH (05:34)
[2021-06-04] MEDS: ENOXAPARIN 40 MG/0.4 ML SYRINGE SQ SCH (08:33)
[2021-06-04] MEDS: CHOLECALCIFEROL 25 MCG (1000 IU) TABLET PO SCH (08:33)
[2021-06-04] MEDS: GABAPENTIN 300 MG CAP PO SCH ×3 (08:33→21:33)
[2021-06-04] MEDS: atenoloL 25 MG TAB PO SCH (08:34)
[2021-06-04] MEDS: PROPAFENONE 150 MG TAB PO SCH ×3 (08:34→21:33)
[2021-06-04 09:17] LABS: INR 1.6 (<1.2); Prothrombin Time 16.3 sec (9.0-12.0)
--- NOTE | 2021-06-04 10:39 | P.PN ---
Subjective Progress Note Date: 06/04/21 Principal diagnosis: Left hip femoral neck fracture Patient seen at bedside this morning resting comfortably lying semirecumbent in bed. Patient says she did get up yesterday therapy and sat up in the chair at bedside. Patient still has moderate pain over the left hip where the incision areas from surgery. Patient mentions her pain is under better control today. Patient says she is radiosurgery for her left wrist. Patient says she has not had bowel movement yet, however, patient says she has been passing gas. Patient says she has been using incentive spirometer. Patient denies chest pain, fever, shortness breath, nausea, vomiting, change in vision, loss of bowel/bladder control. Objective - Vital Signs Vital signs: Vital Signs Temp 97.9 F 06/04/21 07:51 Pulse 79 06/04/21 07:51 Resp 16 06/04/21 07:51 BP 162/68 06/04/21 07:51 Pulse Ox 98 06/04/21 07:51 Intake & Output 06/03/21 06/04/21 06/04/21 18:59 06:59 18:59 Output Total 150 700 Balance -150 -700 Weight 79.379 kg Output: Urine 150 700 Other: Voiding Method Indwelling Catheter Indwelling Catheter Indwelling Catheter # Bowel Movements 0 - Exam Inspection: Silver optifoam dressing in place. Incision is intact. Minimal serous drainage. Shirley in good place/well aligned. Minimal ecchymosis present near incision. Negative for erythema, open fractures on left leg. Negative for fluctuance/purulence Sensation: Sensation is equal, symmetric, bilaterally intact throughout. Palpation: There is moderate tenderness to palpation over the incision. Nontender to palpation throughout rest exam Range of motion: Patient is able to flex and extend digits in left foot and plantar/dorsiflex left ankle. Left hip/knee ROM limited due to pain. Patient has full range of motion in bilateral UE and RLE Motor: Right leg - 5/5 in resisted hip flexion/extension, knee flexion/extension, plantar flexion/dorsiflexion the right ankle; 5/5 in resisted elbow flexion/extension, wrist flexion/extension, shoulder abduction, internal/external rotation of the bilateral UE. Left leg motor exam limited due to patient's pain. Assessment Specialist strength 4/5 in bilateral UE Neurovascular: Refill under 3 seconds bilaterally in upper extremity digits. DP pulses intact, bilaterally, 2+. - Labs CBC & Chem 7: 06/03/21 07:44 06/03/21 07:44 Labs: Abnormal Lab Results - Last 24 Hours (Table) 06/03/21 06/03/21 06/04/21 Range/Units 13:24 20:56 08:17 PT 16.3 H (9.0-12.0) sec INR 1.6 H (<1.2) POC Glucose (mg/dL) 129 H (75-99) mg/dL Urine Appearance Cloudy H (Clear) Urine Protein 1+ H (Negative) Urine Blood Moderate H (Negative) Ur Leukocyte Esterase Moderate H (Negative) Urine RBC 42 H (0-5) /hpf Urine WBC 28 H (0-5) /hpf Hyaline Casts 7 H (0-2) /lpf Urine Mucus Many H (None) /hpf Microbiology - Last 24 Hours (Table) 06/03/21 13:24 Urine Culture - Preliminary Urine,Voided Assessment and Plan Assessment: 1. Left hip femoral neck fracture - Postoperative day 2 status post left hip hemiarthroplasty 2. Left distal radius & ulnar fractures Plan: 1. Left femoral neck fracture - surgery performed , 06/02/2021 - left hip hemiarthroplasty. Patient stable at bedside today. 2. Left distal radius and ulnar fractures - splint in place. surgery scheduled for tomorrow, 06/05/2021, - ORIF left wrist. NPO after midnight tonight 3. Appreciate medical management 4. Pain management - Tylenol ; [place]; Gabapentin; dilaudid if needed 5. DVT prophylaxis - Lovenox; Will resume Coumadin on Sunday06/06/2021 6. GI prophylaxis - senna 7. PT/OT - wbat left leg with walker and assistance. NWB left arm 8. Discharge planning - plan discharge to subacute rehab 06/06/2021 vs Sunday06/07/2021 Time with Patient: Less than 30
[2021-06-04 11:38] LABS: HCT 36.2 % (37.2-46.3); HGB 11.3 g/dL (12.0-15.0); MCH 30.6 pg (27.0-32.0); MCHC 31.2 g/dL (32.0-37.0); MCV 98.1 fL (80.0-97.0); Mean Platelet Volume 11.4 fL (9.5-12.2); Platelet Count 186 X 10*3/uL (140-440); RBC 3.69 X 10*6/uL (4.10-5.20); RDW 12.4 % (11.5-14.5); WBC 16.66 X 10*3/uL (4.50-10.00)
[2021-06-04 12:21] LABS: Basophils # (A) 0.02 X 10*3/uL (0.00-0.10); Basophils % (A) 0.1 %; Eosinophils # (A) 0 X 10*3/uL (0.04-0.35); Eosinophils % (A) 0 %; Lymphocytes # (A) 1.38 X 10*3/uL (0.90-5.00); Lymphocytes % (A) 8.3 %; Monocytes # (A) 2.32 X 10*3/uL (0.20-1.00); Monocytes % (A) 13.9 %; Neutrophils # (A) 12.88 X 10*3/uL (1.80-7.70); Neutrophils % (A) 77.3 %
--- NOTE | 2021-06-04 13:42 | P.PN ---
Subjective Progress Note Date: 06/04/21 HISTORY OF PRESENT ILLNESS This is an 86-year-old female patient of Dr. 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 Patient states that she went out into the garage to put some pain in the garbage and she ended up having a fall and experienced significant pain in the left hip and left wrist was unable to get up off the ground. She started dragging herself across the garage floor and was next to the large grudge door started pounding out of the next her neighbor heard her. Neighbor called EMS and patient was brought into the clinic in [facility] emergency center for evaluation. EKG was atrial fibrillation with no acute ST changes. Initial blood pressure 173/106 with recheck of 150/81, afebrile, heart rate in 70s and 90s, pulse ox 91%. CBC was unremarkable with hemoglobin 13.2. Sodium 133 otherwise electrolytes and renal function normal. Blood sugar 124. AST 43. CK 288. Coronavirus not detected. Left hip and pelvis x-rays revealed displaced subcapital fracture of the left femur. Chest x-ray reveals mild subsegmental atelectasis or fibrotic changes are increased compared to last exam. Cardiomegaly. No heart failure. CAT scan of the brain and cervical spine revealed no acute intracranial abnormality. Minor degenerative changes in the cervical spine. No fracture. No change. Fibrotic changes noted at the lung apices. X-ray of the left wrist revealed transverse distal metaphyseal radial and ulnar fractures with dorsal angulation. Ulnar styloid avulsion. Patient has been admitted to orthopedics with plan for left hip hemiarthroplasty this afternoon and left wrist open reduction and internal fixation on 06/04. Regarding Coumadin, patient states that she has not been feeling well and has not taken Coumadin for the past 2 days. Patient is complaining of significant left foot pain which is been chronic and she normally sleeps in a chair. Pain medications have been ordered and we will resume gabapentin, Xanax and atenolol to be given prior to surgery today. Consult with cardiology added for clearance secondary to atrial fibrillation and history of [place]. 06/03: Patient is found today sitting up in recliner and appears to be comfortable. She has a Ocampo catheter in place with plan for removal and urinalysis to be checked. Yesterday, patient underwent left hip hemiarthroplasty. Patient was also evaluated by cardiology with recommendations to continue home medications and will need anticoagulation with Coumadin or IV heparin after surgery. Patient is scheduled to undergo left wrist open reduction internal fixation tomorrow and we will plan to resume Coumadin following the procedure. Patient has been afebrile, heart rate 78, blood pressure 160/70, pulse ox 99% on 4 L nasal cannula. INR 1.7. Creatinine 0.79. Blood sugar 124. Discharge plan is for [facility] for subacute rehab most likely on Sunday. Echocardiogram reveals EF 45-50%, mild aortic valve sclerosis, mild tricuspid regurgitation. 06/04: Patient scheduled surgery for today is delayed until tomorrow due to scheduling issue. Patient is complaining of pain in her left foot which is chronic. She is on her home pain medications as well as IV Dilaudid. Patient has been afebrile, heart rate 79, blood pressure 162/68 and pulse ox 90% on 4 L nasal cannula. Repeat blood work reveals WBC of 16.6, hemoglobin 11.3 and platelet count 186. INR is 1.6. Urine culture is in progress. Urinalysis obtained yesterday revealed blood moderate, leukoesterase moderate, RBCs 42, WBC is 28. REVIEW OF SYSTEMS Constitutional: No fever, no chills, no night sweats. No weight change. No weakness, fatigue or lethargy. No daytime sleepiness. EENT: No headache. No blurred vision or double vision, no loss of vision. No loss of Hearing, no ringing in the ears, no dizziness. No nasal drainage or congestion. No epistaxis. No sore throat. Lungs: No shortness of breath, cough, no sputum production. No wheezing. Cardiovascular: No chest pain, no lower extremity edema. No palpitations. No paroxysmal nocturnal dyspnea. No orthopnea. No lightheadedness or dizziness. No syncopal episodes. Abdominal: No abdominal pain. No nausea, vomiting. No diarrhea. No constipation. No bloody or tarry stools. No loss of appetite. Genitourinary: No dysuria, increased frequency, urgency. No urinary retention. Musculoskeletal: No myalgias. No muscle weakness, no gait dysfunction, no frequent falls. No back pain. No neck pain. Reports left hip and left wrist discomfort. Integumentary: No wounds, no lesions. No rash or pruritus. No unusual bruising. No change in hair or nails. Neurologic: No aphasia. No facial droop. No change in mentation. No head injury. No headache. No paralysis. No paresthesia. Psychiatric: No depression. No anxiety. No mood swings. Endocrine: No abnormal blood sugars. No weight change. PHYSICAL EXAMINATION Gen: This is 86-year-old in recliner and appears to be comfortable although she does complain of pain to the left foot. HEENT: Head is atraumatic, normocephalic. Pupils equal, round. Sclerae is anicteric. NECK: Supple. No JVD. No lymphadenopathy. No thyromegaly. LUNGS: Clear to auscultation. No wheezes or rhonchi. No intercostal retractions. HEART:Regularly irregular rate and rhythm. Systolic murmur. ABDOMEN: Soft. Bowel sounds are present. No masses. No tenderness. Possibly draining clear glenn urine. EXTREMITIES: No pedal edema. No calf tenderness. Left hip wound with no sign of infection, splint in place to the left forearm. NEUROLOGICAL: Patient is awake, alert and oriented x3. Cranial nerves 2 through 12 are grossly intact. ASSESSMENT AND PLAN 1. Left femur fracture status post left hip hemiarthroplasty 06/02. Continue current pain management, PT and OT per per orthopedics, Coumadin is currently on hold until after surgery scheduled 06/05. 2. Left radial and ulnar fractures. Patient is scheduled for left wrist open reduction and internal fixation on 06/05. Continue to hold Coumadin 3. History of coronary artery disease with previous myocardial infarction in 2006 status post stent. Consult with cardiology appreciated. 4. Paroxysmal atrial fibrillation. Patient is continued on Rythmol 150 mg 3 times daily, atenolol 25 mg daily, hold Coumadin for surgery, cardiology consult. 5. Hyperlipidemia. Hold simvastatin. 6. Hypertension, hypertensive cardiovascular disease. Continue atenolol and Rythmol. 7. Hypothyroidism. Continue levothyroxine 50 g daily. 8. Migraine headaches. Continue Fioricet as needed. 9. Gastroesophageal reflux disease. Continue Pepcid 20 mg at bedtime. 10. Generalized anxiety disorder. Continue Xanax 0.5 mg 2 times daily. 11. Chronic left foot pain and neuropathy. Continue gabapentin 300 mg 3 times daily, [place] 10 one half tablet every 3 hours as needed. 12. COVID-19 testing negative. Patient has been hospitalized during a pandemic. DISCHARGE PLAN Subacute rehab at [facility] on Sunday. Impression and plan of care have been directed as dictated by the signing physician. Basilia Rodriguez nurse practitioner acting as scribe for signing physician. Objective - Vital Signs Vital signs: Vital Signs Temp 97.9 F 06/04/21 07:51 Pulse 79 06/04/21 07:51 Resp 16 06/04/21 07:51 BP 162/68 06/04/21 07:51 Pulse Ox 98 06/04/21 07:51 Intake & Output 06/03/21 06/04/21 06/04/21 18:59 06:59 18:59 Output Total 150 700 Balance -150 -700 Weight 79.379 kg Output: Urine 150 700 Other: Voiding Method Indwelling Catheter Indwelling Catheter # Bowel Movements 0 - Labs CBC & Chem 7: 06/04/21 08:18 06/03/21 07:44 Labs: Abnormal Lab Results - Last 24 Hours (Table) 06/03/21 06/03/21 06/04/21 Range/Units 13:24 20:56 08:17 PT 16.3 H (9.0-12.0) sec INR 1.6 H (<1.2) POC Glucose (mg/dL) 129 H (75-99) mg/dL Urine Appearance Cloudy H (Clear) Urine Protein 1+ H (Negative) Urine Blood Moderate H (Negative) Ur Leukocyte Esterase Moderate H (Negative) Urine RBC 42 H (0-5) /hpf Urine WBC 28 H (0-5) /hpf Hyaline Casts 7 H (0-2) /lpf Urine Mucus Many H (None) /hpf Microbiology - Last 24 Hours (Table) 06/03/21 13:24 Urine Culture - Preliminary Urine,Voided
--- NOTE | 2021-06-04 14:32 | P.PN ---
Subjective Progress Note Date: 06/04/21 This is a pleasant 86-year-old female past medical history significant for coronary artery disease status post PCI to the mid circumflex in 2006, paroxysmal atrial fibrillation (on coumadin), hypertension, hyperlipidemia, neuropathy bilateral toes, hypothyroidism. She follows in the office with Dr. Lowe. We were asked to see the patient in consultation for preoperative clearance. Patient presented to the emergency department after a fall at home. She states that she was at home in her garage, throwing the trash out, she states the floor is uneven in the garage and she tripped and fell on her left hip and her left arm. She was unable to ambulate afterwards secondary to the pain, her neighbor heard her and was able to help patient and presented to the emergency department for further evaluation. Xrays revealed Left hip femoral neck fracture completely displaced and Left distal radial and transverse distal metaphyseal radial and ulnar fractures with dorsal angulation. EKG on admission revealed atrial fibrillation with controlled rate. Orthopedics evaluated the patient, patient underwent Left hip hemiarthroplasty on 06/02/21. 06/04/2021 The patient was seen and examined this morning resting in bed. Coumadin remains on hold. He was initially supposed to undergo left wrist surgery this morning however it is postponed for tomorrow. She is feeling a bit nauseous today with complaints of pain in her left wrist and hip. She feels her breathing is stable. She has no chest discomfort or shortness of breath. Blood pressure was elevated this morning prior to medication administration likely related to pain. Objective - Vital Signs Vital signs: Vital Signs Temp 97.9 F 06/04/21 07:51 Pulse 79 06/04/21 07:51 Resp 16 06/04/21 07:51 BP 162/68 06/04/21 07:51 Pulse Ox 98 06/04/21 07:51 Intake & Output 06/03/21 06/04/21 06/04/21 18:59 06:59 18:59 Output Total 150 700 Balance -150 -700 Weight 79.379 kg Output: Urine 150 700 Other: Voiding Method Indwelling Catheter Indwelling Catheter Indwelling Catheter # Bowel Movements 0 - Exam PHYSICAL EXAMINATION: HEENT: Head is atraumatic, normocephalic. Pupils equal, round. Neck is supple. There is no elevated jugular venous pressure. HEART EXAMINATION: Heart sounds irregular rate and rhythm, S1 and S2 normal. No murmur or gallop heard. CHEST EXAMINATION: Lungs are clear to auscultation and precussion. No chest wall tenderness is noted on palpation or with deep breathing. ABDOMEN: Soft, nontender. Bowel sounds are heard. No organomegaly noted. EXTREMITIES: 2+ peripheral pulses with evidence of trace left lower extremity and left hand edema and no calf tenderness noted. Left wrist CHAD wrapped in place. NEUROLOGIC [atient is awake, alert and oriented x3.] . - Labs CBC & Chem 7: 06/04/21 08:18 06/03/21 07:44 Labs: Abnormal Lab Results - Last 24 Hours (Table) 06/03/21 06/03/21 06/04/21 Range/Units 13:24 20:56 08:17 WBC (4.50-10.00) X 10*3/uL RBC (4.10-5.20) X 10*6/uL Hgb (12.0-15.0) g/dL Hct (37.2-46.3) % MCV (80.0-97.0) fL MCHC (32.0-37.0) g/dL PT 16.3 H (9.0-12.0) sec INR 1.6 H (<1.2) POC Glucose (mg/dL) 129 H (75-99) mg/dL Urine Appearance Cloudy H (Clear) Urine Protein 1+ H (Negative) Urine Blood Moderate H (Negative) Ur Leukocyte Esterase Moderate H (Negative) Urine RBC 42 H (0-5) /hpf Urine WBC 28 H (0-5) /hpf Hyaline Casts 7 H (0-2) /lpf Urine Mucus Many H (None) /hpf 06/04/21 Range/Units 08:18 WBC 16.66 H (4.50-10.00) X 10*3/uL RBC 3.69 L (4.10-5.20) X 10*6/uL Hgb 11.3 L (12.0-15.0) g/dL Hct 36.2 L (37.2-46.3) % MCV 98.1 H (80.0-97.0) fL MCHC 31.2 L (32.0-37.0) g/dL PT (9.0-12.0) sec INR (<1.2) POC Glucose (mg/dL) (75-99) mg/dL Urine Appearance (Clear) Urine Protein (Negative) Urine Blood (Negative) Ur Leukocyte Esterase (Negative) Urine RBC (0-5) /hpf Urine WBC (0-5) /hpf Hyaline Casts (0-2) /lpf Urine Mucus (None) /hpf Microbiology - Last 24 Hours (Table) 06/03/21 13:24 Urine Culture - Preliminary Urine,Voided Assessment and Plan Assessment: Mechanical Fall at home Left hip femoral fracture Left distal radial and ulnar fractures with dorsal angulation Coronary artery disease status post PCI to the mid circumflex in 2006 Paroxysmal atrial fibrillation (on coumadin) Subtherapeutic INR History of hypertension Hyperlipidemia Hypothyroidism Plan: From cardiology's perspective medications reviewed and we will continue the same. Hopefully the patient will undergo left wrist surgery tomorrow and resume Coumadin once cleared by orthopedics. Continue to follow the patient perioperatively and provide further recommendations accordingly. The above dictated assessment and findings were discussed with signing physician. The impression and plan of care have been directed as dictated. Anat Joyce, Nurse Practitioner, acting as scribe for signing physician.
[2021-06-04] MEDS: SENNOSIDES-DOCUSATE SODIUM 1 EACH TAB PO SCH (21:33)
[2021-06-04] MEDS: HYDROcodone/APAP 5-325MG 1 EACH TAB PO PRN (21:33)
[2021-06-05] MEDS: HYDROmorphone 0.5 MG/0.5 ML SYRINGE IVP PRN ×2 (05:40→18:20)
[2021-06-05] MEDS: SODIUM CHLORIDE 0.9% 1,000 ML IV SCH ×3 (05:43→20:39)
[2021-06-05] MEDS: LEVOTHYROXINE 50 MCG TAB PO SCH (05:44)
--- NOTE | 2021-06-05 08:05 | P.PN ---
Progress Note - Text Progress Note Date: 06/05/21 [facility] Progress Note DOS: Hip: 06/02/2021 SUBJECTIVE: Patient seen and examined this morning in the preoperative area. She is with her friend. She states she is ready to proceed with surgical intervention. She complains of some pain in her hip it has been difficult for her to ambulate at this time. Exquisite pain in her wrist as well as bruising. She denies any numbness or tingling she denies any new symptoms. OBJECTIVE: Vital signs stable General: AOX3, NAD Incision CDI Motor Exam: RUE: 11/03 SA, EF, EE, WF, WE, Intrinsic, [place] LUE: 11/03 SA, EF, EE, WF, WE, Intrinsic, [place] Carver; except for left wrist due to fracture RLE: 11/03 HF, KE, KF, DF, PF, EHL, FHL LLE: 11/03 HF, KE, KF, DF, PF, EHL, FH, except for left hip due to fracture Reflexes: / in UE and LE b/l SILT C5-T1 and L2-S1 +distal pulses palpable ASSESSMENT: 86-year-old female status post fall from standing left femoral neck fracture postop day 4 left hip hemiarthroplasty. Left distal radius fracture plan for OR today PLAN: 1. Nothing by mouth confirmed 2. Consent confirmed 3. Anesthesia cleared for surgery, medical cleared for surgery 4. OR today for ORIF of left wrist Orthopedic Surgery Risk Review Nika Love is a 86-year-old female presenting for evaluation of sudden onset left wrist pain, inability to ambulate after fall from standing. It was my pleasure to have seen and examined Nika Love. In our visit today we have had a chance to go over subjective complaints, physical examination findings and treatments including the natural course history without intervention and various interventional options. Her imaging demonstrates left distal radius fracture dorsally angulated 45 dorsal comminution. On physical exam, Nika Love demonstrates pain with motion of left wrist, which is NV intact at this time. I have explained to the patient that this fracture needs stabilization. Based on the patients imaging, physical exam, and the rapid progression and disabling nature of her symptoms, at this time I recommend surgery in the form or a: Left wrist ORIF I discussed the risk and benefits of this procedure at length with Nika Love. Questions were invited and answered, and the patient wishes to proceed as outlined below. Currently, I am recommendin. Open reduction and internal fixation of left wrist 2. Review of surgical risks and benefits as well as an educational packet on the proposed surgical procedure. Risks: All surgical procedures come with inherent risks, including those related to positioning, anesthesia, intraoperative findings, and postoperative comp lications. It is important to understand that surgery does not come with any guarantee of a successful outcome as complications and adverse events are always possible. The patient was given a handout discussing the surgical procedure and risks associated with the intervention, both of which were discussed with the patient. These risks include but are not limited to the following: - Experiencing same, different or even worse symptoms compared to before surgery. - Requiring further surgery or other forms of treatment presently or at some time in the future . - On an extreme but fortunately relatively rare basis severe complication such as blindness, stroke, heart attack, temporary and/or permanent nerve injury, paralysis, coma, or may occur, sometimes without known explanation. - Surgical complications may include but are not limited to risk of infection, fluid accumulation in the surgical dissection site, including a seroma or hematoma, that requires additional surgery, wound drainage, bleeding, new numbness or weakness, vision changes/loss, spinal fluid leakage, non-healing and/or infected incision, headaches, difficulty or inability to swallow, hoarseness, hemopneumothorax, pneumothorax, injury to nerves, spinal cord, blood vessels, lymphatics or other vital organs (i.e., bowel injury, injury to the great vessels); heterotopic bone formation; complications related to the hardware such as screws, rods, including misplaced hardware, device failure, hardware fracture/breakage, or hardware loosening; retained surgical instrumentations or devices and the need for further surgery. - Medical risks of the planned surgery include but are not limited to generalized Infections to the whole body or local areas outside of the surgical site (sepsis), heart attack, bleeding, anaphylaxis, meningitis, seizure, epilepsy, hearing loss, burn ventura, laceration of the head or other areas of the body, bruising, hypersensitivity of the skin, bladder over distension; allergic reaction; shoulder injury related to positioning; fat, blood and air clots to other areas of the body like heart, lungs, brain; failure of internal organs suc h as lungs, kidneys, liver and excessive bleeding. If blood transfusions are necessary, note that transfusions may cause intolerance reactions such as anaphylaxis or other complex reactions. Despite best efforts, the results of surgery might not heal in terms of bone, soft tissues such as skin, fascia, ligaments, and joints. [facility] has multiple operating rooms with single and overlapping rooms running daily. They currently function under the required guidelines as produced by the [facility] Finance Committee with regards to the overlapping rooms and will continue to comply with changes to this policy as they occur. The requirements include and are complied with as follows: (1) the critical portions of the overlapping rooms will not occur at the same time, (2) the attending physician will be physically present during the critical portions of the procedure and immediately available during the entire case, and (3) a back-up attending is designated should the primary attending not be immediately available. The patient has had a chance to review all the listed information, has been given print outs detailing this information, and has had all his/her questions answered to their satisfaction. It was my pleasure to have seen and examined Nika Love. In our visit today we have had a chance to go over my understanding of our patient's current condition, the natural course history without intervention and various interventional options. Questions were invited and answered, and the patient wishes to proceed as outlined above. I have seen and examined the patient for 25 minutes and we have spent more than 50% of the time in repeat and detailed counseling about the patient's condition, its natural course history with out and as much as can be predicted with surgery and re-review of various surgical treatment options. In conclusion, Nika Love and her friend who is present today requested we proceed with the above suggested surgery and are willing to accept risks and limitations of the suggested surgery as nature of the disease process and our best attempts at treatment for the condition. Thank you again for allowing us to be part of your patient's care. Please don't hesitate to contact me if you have any further questions. Signed and authenticated by: Alber Orellana DO [facility] Minimally Invasive Spine Surgery [address], [address] [address]
[2021-06-05] MEDS: MIDAZOLAM 2 MG/2 ML VIAL IVP ONE ×3 (08:07→08:20)
[2021-06-05] MEDS: .fentaNYL (PF) 50 MCG/ML 2 ML AMP IVP ONE ×2 (08:07→08:17)
[2021-06-05] MEDS: GABAPENTIN 300 MG CAP PO SCH ×3 (08:07→20:40)
[2021-06-05] MEDS: CHOLECALCIFEROL 25 MCG (1000 IU) TABLET PO SCH (08:07)
[2021-06-05] MEDS ORDERED: LIDOCAINE 2%-EPI 1:100,000 20 ML VIAL SUBMUCOSAL ONE (08:07)
[2021-06-05] MEDS ORDERED: ROPIVACAINE 5 MG/ML 30 ML VIAL MISCELLANE ONE (08:07)
[2021-06-05] MEDS: ENOXAPARIN 40 MG/0.4 ML SYRINGE SQ SCH (08:07)
[2021-06-05] MEDS: PROPAFENONE 150 MG TAB PO SCH ×3 (08:07→20:40)
[2021-06-05] MEDS ORDERED: PROPOFOL 10 MG/ML 20 ML VIAL IV ONE (08:10)
[2021-06-05] MEDS ORDERED: LIDOCAINE 1% INJ 10MG/ML (20 ML MDV) ONE (08:10)
[2021-06-05] MEDS ORDERED: ONDANSETRON 4 MG/2 ML VIAL ONE (08:10)
[2021-06-05] MEDS ORDERED: DEXAMETHASONE SOD PHOSPHATE 10 MG/ML 1 ML VIAL ONE (08:10)
[2021-06-05] MEDS ORDERED: ePHEDrine 50 MG/ML 1 ML AMP ONE (08:10)
[2021-06-05] MEDS ORDERED: IV FLUID CONTINUATION 1,000 ML IV ONE (08:18)
[2021-06-05] MEDS ORDERED: SODIUM CHLORIDE 0.9% 100 ML with CLINDAMYCIN 600 MG IV ONE ×2 (08:18)
--- NOTE | 2021-06-05 08:55 | P.ANPRN ---
Procedure Note - Anesthesia - Nerve Block Performed Left Axillary Single Time Out Performed: Yes Date of Procedure: 06/05/21 Procedure Start Time: 07:50 Procedure Stop Time: 08:00 Location of Patient: PreOp Indication: Acute Post-Operative Pain, Dx/Pain Location, Requested by Surgeon Specifically requested for management of pain by DrRadha: Alber Orellana Sedation Type: Sedate with meaningful contact maintained Preparation: Sterile Prep Position: Supine Catheter: None Needle Types: Facet Needle Gauge: 21 Ultrasound used to visualize needle placement: Yes Ultrasound used to observe medication spread: Yes Injectate: 0.5% Ropivacaine (see comment for volume) Blood Aspirated: No Pain Paresthesia on Injection Noted: No Resistance on Injection: Normal Image Stored and Saved: Yes Events: Uneventful and Well Tolerated (20cc 0.5% Ropivacaine with 10cc 2% lidocaine with epi)
--- NOTE | 2021-06-05 09:29 | P.PN ---
Progress Note - Text Progress Note Date: 06/05/21 Brief Post Op: Surgeon: Esteban Assist: Yamilex Pre op dx; left distal radius fracture Post op dx: SAME Procedure: Left distal radius ORIF Anesthesia: Regional block with sedation EBL: 10 mL Fluids: 200 ml UO: 0 Dispo: Stable to PACU Post op Plan: Encourage ambulation IS 10x/hr Teds/SCDs Pain control
--- NOTE | 2021-06-05 09:35 | P.OP ---
Date of Procedure: 06/05/21 Preoperative Diagnosis: 1. Lt distal radius fracture, intraarticular, comminuted, displaced, dorsally angulated Postoperative Diagnosis: 1. Lt distal radius fracture, intraarticular, comminuted, displaced, dorsally angulated Procedure(s) Performed: 1. Lt distal radius ORIF Implants: Arthrex distal radial locking plate Anesthesia: MAC, regional Surgeon: Alber Orellana Industrial Technology Education Teacher #1: Bertram Upton (Was present and necessary due to the complexity of the case) Estimated Blood Loss (ml): 20 IV fluids (ml): 200 Urine output (ml): 0 Pathology: none sent Condition: stable Disposition: PACU Indications for Procedure: 86 yo female who is known to our service presented after ffs. She had her Lt hip fixed 4 days prior and is here today for her Lt distal radius fracture. She has been in the hospital since this time and is working with PT to get back to ambulating but this is difficult with her DR fracture at this time. Due to the nature of the fracture as well as her concurrent LE injury we have discussed and she has agreed to operative fixation of this Lt distal radius. We discussed all risks and benefits as outlined and she is in agreement with proceeding with ORIF of Lt distal radius. Description of Procedure: The patient was seen and examined in the preoperative area. All preoperative protocols were followed. Informed consent was obtained risks and benefits of the procedure were discussed at length. Risks including bleeding infection damage to the surrounding tissue and risk of reoperation were discussed with the patient. Risk of anesthesia up to and including was a discussed with the patient. These are outlined in the risk reviewed. They were willing to accept these risks and all of the risks of surgery. The patient was given a weight- based dose of antibiotics in the form of Cleocin 600 mg preoperative. The patient was seen and evaluated by the anesthesia team who deemed them fit for surgery. The site was marked, the patient was willing to proceed with the procedure. The patient was transferred to the operative suite by the Department of anesthesia. There were then drifted off to sleep by the department of anesthesia and regional block with LMA anesthesia was used. Once adequate anesthesia had been obtained the patient was carefully transferred to the operative bed. All bony prominences were padded accordingly. SCDs were placed on the nonoperative lower extremities. Arms were well padded. Left arm was then exposed placed on arm board well-padded tourniquet was placed on the patient's left upper extremity and well-padded. Preoperative briefing was done with the operative team and everyone was ready for the procedure to start. The patients left arm was then prepped and draped in the normal sterile fashion. Timeout was then performed and all parties in agreement with the procedure to be performed. Exsanguination of the left wrist was performed with Esmarch tourniquet was infla dari to 250 mmHg. Standard volar Dae approach to the wrist was performed. Pronator was elevated then off of the distal radius and clean using periosteal elevator. Fracture was identified and a Holdrege was used to disengage the fracture and reduce it. It is held in reduction and images were taken once in good reduction a plate was pinned into position. Plate was then confirmed to be in good position on AP and lateral fluoroscopy. We then drilled and placed a shaft screw to adhere the plate to the bone. We then drilled and placed a distal nonlocking screw through the distal fragment to reduce the fracture to the plate. We then proceeded with drilling locking peg screws in the distal row. We exchanged the distal nonlocking screw for a locking peg screw. We then placed radial styloid locking pins as well as proximal row locking pins. These were drilled and measured appropriately under fluoroscopy. Once in good position we then turned our attention to the shaft screws where locking screws were placed in the shaft due to poor bone quality. These were drilled measured and then placed sequentially. Final x-rays were then taken showing good reduction of fracture and good placement. We then irrigated thoroughly the wound with normal sterile saline. Tourniquet was dropped and all bleeders were cauterized. We then closed the skin with 3-0 Vicryl followed by 3-0 nylon in a running fashion. The wound edges approximated very well. The wound was then cleaned and dressed sterilely with sterile Adaptic 4 x 4's and Littlejohn roll she was then placed in a volar splint which was well padded. This is overwrapped with an Luís wrap. The patient was then transferred back to their hospital bed. There were awakened by department of anesthesia having tolerated the procedure very well with no complications. The patient was then transported to the postoperative care unit in stable condition.
--- NOTE | 2021-06-05 13:37 | P.PN ---
Subjective Progress Note Date: 06/05/21 This is a pleasant 86-year-old female past medical history significant for coronary artery disease status post PCI to the mid circumflex in 2006, paroxysmal atrial fibrillation (on coumadin), hypertension, hyperlipidemia, neuropathy bilateral toes, hypothyroidism. She follows in the office with Dr. Lowe. We were asked to see the patient in consultation for preoperative clearance. Patient presented to the emergency department after a fall at home. She states that she was at home in her garage, throwing the trash out, she states the floor is uneven in the garage and she tripped and fell on her left hip and her left arm. She was unable to ambulate afterwards secondary to the pain, her neighbor heard her and was able to help patient and presented to the emergency department for further evaluation. Xrays revealed Left hip femoral neck fracture completely displaced and Left distal radial and transverse distal metaphyseal radial and ulnar fractures with dorsal angulation. EKG on admission revealed atrial fibrillation with controlled rate. Orthopedics evaluated the patient, patient underwent Left hip hemiarthroplasty on 06/02/21. 06/04/2021 The patient was seen and examined this morning resting in bed. Coumadin remains on hold. He was initially supposed to undergo left wrist surgery this morning however it is postponed for tomorrow. She is feeling a bit nauseous today with complaints of pain in her left wrist and hip. She feels her breathing is stable. She has no chest discomfort or shortness of breath. Blood pressure was elevated this morning prior to medication administration likely related to pain. 06/05/2021 The patient was seen and examined resting comfortably in bed. She underwent left distal radius ORIF this morning with Dr. Orellana. Overall she's feeling a bit little bit better compared to yesterday. She's had no nausea. Vital signs are stable. She is looking forward to discharge tomorrow to rehab. Objective - Vital Signs Vital signs: Vital Signs Temp 98.0 F 06/05/21 10:24 Pulse 81 06/05/21 12:11 Resp 17 06/05/21 10:24 BP 132/73 06/05/21 10:38 Pulse Ox 95 06/05/21 10:38 Intake & Output 06/04/21 06/05/21 06/05/21 18:59 06:59 18:59 Intake Total 804 Output Total 900 3 Balance -900 801 Intake: IV 804 Output: Urine 900 Estimated Blood Loss 3 Other: Voiding Method Indwelling Catheter Indwelling Catheter Indwelling Catheter # Bowel Movements 0 - Exam PHYSICAL EXAMINATION: HEENT: Head is atraumatic, normocephalic. Pupils equal, round. Neck is supple. There is no elevated jugular venous pressure. HEART EXAMINATION: Heart sounds irregular rate and rhythm, S1 and S2 normal. No murmur or gallop heard. CHEST EXAMINATION: Lungs are clear to auscultation and precussion. No chest wall tenderness is noted on palpation or with deep breathing. ABDOMEN: Soft, nontender. Bowel sounds are heard. No organomegaly noted. EXTREMITIES: 2+ peripheral pulses with evidence of trace left lower extremity and left hand edema and no calf tenderness noted. Left wrist CHAD wrapped in place. NEUROLOGIC [atient is awake, alert and oriented x3.] . - Labs CBC & Chem 7: 06/04/21 08:18 06/03/21 07:44 Labs: Microbiology - Last 24 Hours (Table) 06/03/21 13:24 Urine Culture - Final Urine,Voided Assessment and Plan Assessment: Mechanical Fall at home Left hip femoral fracture Left distal radial and ulnar fractures with dorsal angulation Coronary artery disease status post PCI to the mid circumflex in 2006 Paroxysmal atrial fibrillation (on coumadin) Subtherapeutic INR History of hypertension Hyperlipidemia Hypothyroidism Plan: From cardiology's perspective medications reviewed and we will continue the same. Resume Coumadin once cleared by orthopedics. Continue to follow the patient during this hospitalization. She will follow-up with Dr. Lowe in the office in a few weeks after she has done some rehab. The above dictated assessment and findings were discussed with signing physician. The impression and plan of care have been directed as dictated. Anat Joyce, Nurse Practitioner, acting as scribe for signing physician.
--- NOTE | 2021-06-05 14:10 | P.PN ---
Subjective Progress Note Date: 06/05/21 HISTORY OF PRESENT ILLNESS This is an 86-year-old female patient of Dr. 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 Patient states that she went out into the garage to put some pain in the garbage and she ended up having a fall and experienced significant pain in the left hip and left wrist was unable to get up off the ground. She started dragging herself across the garage floor and was next to the large grudge door started pounding out of the next her neighbor heard her. Neighbor called EMS and patient was brought into the clinic in [facility] emergency center for evaluation. EKG was atrial fibrillation with no acute ST changes. Initial blood pressure 173/106 with recheck of 150/81, afebrile, heart rate in 70s and 90s, pulse ox 91%. CBC was unremarkable with hemoglobin 13.2. Sodium 133 otherwise electrolytes and renal function normal. Blood sugar 124. AST 43. CK 288. Coronavirus not detected. Left hip and pelvis x-rays revealed displaced subcapital fracture of the left femur. Chest x-ray reveals mild subsegmental atelectasis or fibrotic changes are increased compared to last exam. Cardiomegaly. No heart failure. CAT scan of the brain and cervical spine revealed no acute intracranial abnormality. Minor degenerative changes in the cervical spine. No fracture. No change. Fibrotic changes noted at the lung apices. X-ray of the left wrist revealed transverse distal metaphyseal radial and ulnar fractures with dorsal angulation. Ulnar styloid avulsion. Patient has been admitted to orthopedics with plan for left hip hemiarthroplasty this afternoon and left wrist open reduction and internal fixation on 06/04. Regarding Coumadin, patient states that she has not been feeling well and has not taken Coumadin for the past 2 days. Patient is complaining of significant left foot pain which is been chronic and she normally sleeps in a chair. Pain medications have been ordered and we will resume gabapentin, Xanax and atenolol to be given prior to surgery today. Consult with cardiology added for clearance secondary to atrial fibrillation and history of IL. 06/03: Patient is found today sitting up in recliner and appears to be comfortable. She has a Ocampo catheter in place with plan for removal and urinalysis to be checked. Yesterday, patient underwent left hip hemiarthroplasty. Patient was also evaluated by cardiology with recommendations to continue home medications and will need anticoagulation with Coumadin or IV heparin after surgery. Patient is scheduled to undergo left wrist open reduction internal fixation tomorrow and we will plan to resume Coumadin following the procedure. Patient has been afebrile, heart rate 78, blood pressure 160/70, pulse ox 99% on 4 L nasal cannula. INR 1.7. Creatinine 0.79. Blood sugar 124. Discharge plan is for [facility] for subacute rehab most likely on Sunday. Echocardiogram reveals EF 45-50%, mild aortic valve sclerosis, mild tricuspid regurgitation. 06/04: Patient scheduled surgery for today is delayed until tomorrow due to scheduling issue. Patient is complaining of pain in her left foot which is chronic. She is on her home pain medications as well as IV Dilaudid. Patient has been afebrile, heart rate 79, blood pressure 162/68 and pulse ox 90% on 4 L nasal cannula. Repeat blood work reveals WBC of 16.6, hemoglobin 11.3 and platelet count 186. INR is 1.6. Urine culture is in progress. Urinalysis obtained yesterday revealed blood moderate, leukoesterase moderate, RBCs 42, WBC is 28. 06/05: Patient has just returned from all are where she underwent a left distal radial ORIF with Dr. Orellnaa. The patient is being placed back on oxygen with pulse ox of 96% on 3 L. She has been afebrile, heart rate 73, blood pressure 132/62. Patient is also followed by cardiology and patient to resume Coumadin once cleared by orthopedics, follow up with Dr. Lowe in the office in a few weeks. Patient is scheduled for discharge to [facility] tomorrow under the care of Dr. Vance. REVIEW OF SYSTEMS Constitutional: No fever, no chills, no night sweats. No weight change. No weakness, fatigue or lethargy. No daytime sleepiness. EENT: No headache. No blurred vision or double vision, no loss of vision. No loss of Hearing, no ringing in the ears, no dizziness. No nasal drainage or congestion. No epistaxis. No sore throat. Lungs: No shortness of breath, cough, no sputum production. No wheezing. Cardiovascular: No chest pain, no lower extremity edema. No palpitations. No paroxysmal nocturnal dyspnea. No orthopnea. No lightheadedness or dizziness. No syncopal episodes. Abdominal: No abdominal pain. No nausea, vomiting. No diarrhea. No constipation. No bloody or tarry stools. No loss of appetite. Genitourinary: No dysuria, increased frequency, urgency. No urinary retention. Musculoskeletal: No myalgias. No muscle weakness, no gait dysfunction, no frequent falls. No back pain. No neck pain. Reports left hip and left wrist discomfort. Integumentary: No wounds, no lesions. No rash or pruritus. No unusual bruisin g. No change in hair or nails. Neurologic: No aphasia. No facial droop. No change in mentation. No head injury. No headache. No paralysis. No paresthesia. Psychiatric: No depression. No anxiety. No mood swings. Endocrine: No abnormal blood sugars. No weight change. PHYSICAL EXAMINATION Gen: This is 86-year-old female resting in bed and appears to be comfortable. HEENT: Head is atraumatic, normocephalic. Pupils equal, round. Sclerae is anicteric. NECK: Supple. No JVD. No lymphadenopathy. No thyromegaly. LUNGS: Clear to auscultation. No wheezes or rhonchi. No intercostal retractions. HEART:Regularly irregular rate and rhythm. Systolic murmur. ABDOMEN: Soft. Bowel sounds are present. No masses. No tenderness. Possibly draining clear glenn urine. EXTREMITIES: No pedal edema. No calf tenderness. Left hip wound with no sign of infection, splint in place to the left forearm. NEUROLOGICAL: Patient is awake, alert and oriented x3. Cranial nerves 2 through 12 are grossly intact. ASSESSMENT AND PLAN 1. Left femur fracture status post left hip hemiarthroplasty 06/02. Continue current pain management, PT and OT per per orthopedics, Coumadin to be resumed once cleared by orthopedics.. 2. Left radial and ulnar fractures. Status post left wrist open reduction and internal fixation on 06/05. Continue to hold Coumadin 3. History of coronary artery disease with previous myocardial infarction in 2006 status post stent. Consult with cardiology appreciated. 4. Paroxysmal atrial fibrillation. Patient is continued on Rythmol 150 mg 3 times daily, atenolol 25 mg daily, resume Coumadin once cleared by surgery, cardiology consult. 5. Hyperlipidemia. Hold simvastatin. 6. Hypertension, hypertensive cardiovascular disease. Continue atenolol and Rythmol. 7. Hypothyroidism. Continue levothyroxine 50 g daily. 8. Migraine headaches. Continue Fioricet as needed. 9. Gastroesophageal reflux disease. Continue Pepcid 20 mg at bedtime. 10. Generalized anxiety disorder. Continue Xanax 0.5 mg 2 times daily. 11. Chronic left foot pain and neuropathy. Continue gabapentin 300 mg 3 times daily, [place] 10 one half tablet every 3 hours as needed. 12. COVID-19 testing negative. Patient has been hospitalized during a pandemic. DISCHARGE PLAN Subacute rehab at [facility] on Sunday. Impression and plan of care have been directed as dictated by the signing physician. Basilia Rodriguez nurse practitioner acting as scribe for signing physician. Objective - Vital Signs Vital signs: Vital Signs Temp 97.2 F L 06/05/21 09:28 Pulse 73 06/05/21 10:00 Resp 18 06/05/21 10:00 BP 132/62 06/05/21 10:00 Pulse Ox 96 06/05/21 10:00 Intake & Output 06/04/21 06/05/21 06/05/21 18:59 06:59 18:59 Intake Total 804 Output Total 900 3 Balance -900 801 Intake: IV 804 Output: Urine 900 Estimated Blood Loss 3 Other: Voiding Method Indwelling Catheter Indwelling Catheter # Bowel Movements 0 - Labs CBC & Chem 7: 06/04/21 08:18 06/03/21 07:44 Labs: Abnormal Lab Results - Last 24 Hours (Table) 06/04/21 Range/Units 08:18 WBC 16.66 H (4.50-10.00) X 10*3/uL RBC 3.69 L (4.10-5.20) X 10*6/uL Hgb 11.3 L (12.0-15.0) g/dL Hct 36.2 L (37.2-46.3) % MCV 98.1 H (80.0-97.0) fL MCHC 31.2 L (32.0-37.0) g/dL Immature Gran # 0.06 H (0.00-0.04) X 10*3/uL Neutrophils # 12.88 H (1.80-7.70) X 10*3/uL Monocytes # 2.32 H (0.20-1.00) X 10*3/uL Eosinophils # 0 L (0.04-0.35) X 10*3/uL Microbiology - Last 24 Hours (Table) 06/03/21 13:24 Urine Culture - Final Urine,Voided
[2021-06-05] MEDS: atenoloL 25 MG TAB PO SCH (16:21)
[2021-06-05] MEDS: SENNOSIDES-DOCUSATE SODIUM 1 EACH TAB PO SCH (20:40)
[2021-06-05] MEDS: HYDROcodone/APAP 10-325MG 1 EACH TAB PO PRN (20:56)
[2021-06-06] MEDS: HYDROcodone/APAP 5-325MG 1 EACH TAB PO PRN ×2 (01:16→14:50)
[2021-06-06 02:52] VITALS: RESP 16
[2021-06-06] MEDS: HYDROcodone/APAP 10-325MG 1 EACH TAB PO PRN (05:10)
[2021-06-06] MEDS: SODIUM CHLORIDE 0.9% 1,000 ML IV SCH (05:31)
[2021-06-06] MEDS: LEVOTHYROXINE 50 MCG TAB PO SCH (06:17)
[2021-06-06] MEDS: CHOLECALCIFEROL 25 MCG (1000 IU) TABLET PO SCH (07:47)
[2021-06-06] MEDS: ENOXAPARIN 40 MG/0.4 ML SYRINGE SQ SCH (07:48)
[2021-06-06] MEDS: PROPAFENONE 150 MG TAB PO SCH (07:48)
[2021-06-06] MEDS: atenoloL 25 MG TAB PO SCH (07:48)
[2021-06-06] MEDS: GABAPENTIN 300 MG CAP PO SCH (07:48)
[2021-06-06 09:20] LABS: Basophils % (A) 0 %; Eosinophils % (A) 0 %; HCT 34.3 % (34.0-46.0); HGB 11.7 gm/dL (11.4-16.0); Lymphocytes # (A) 0.9 k/uL (1.0-4.8); Lymphocytes % (A) 7 %; MCH 32.2 pg (25.0-35.0); MCV 94.5 fL (80.0-100.0); Mean Platelet Volume 8.6; Monocytes # (A) 0.8 k/uL (0-1.0); Monocytes % (A) 6 %; Neutrophils # (A) 12.2 k/uL (1.3-7.7); Neutrophils % (A) 87 %; Platelet Count 237 k/uL (150-450); RBC 3.63 m/uL (3.80-5.40); RDW 12.3 % (11.5-15.5); WBC 14.1 k/uL (3.8-10.6)
--- NOTE | 2021-06-06 13:20 | P.DS ---
Providers Date of admission: 06/01/21 23:13 Expected date of discharge: 06/06/21 Attending physician: Alber Orellana, Consults: 06/01/21 23:13 Consult Physician Routine Consulting Provider: Tatiana Rose Consult Reason/Comments: medicine consult Do you want consulting provider notified?: Yes 06/02/21 09:54 Consult Physician Routine Consulting Provider: Wilton Frankel Consult Reason/Comments: PREOP clearance, afib, CAD Do you want consulting provider notified?: Yes Primary care physician: [facility] Course: Date of admission: 06/01/2021 Date of discharge: 06/06/2021 Admission diagnosis: 1. Lt femoral neck fracture 2. Lt distal radius fracture Discharge diagnosis: Same Attending physician: Dr. Orellana Surgical procedures: Left hip hemiarthroplasty; left distal radius ORIF Brief history: Patient is a 86-year-old female with a history of left femoral neck fracture and left distal radius fracture status post fall. At this point patient has failed conservative treatment measures and has opted to proceed with a elective left hip hemiarthroplasty and left distal radius ORIF. Hospital course: Details of patient's surgery can be found in operative report. Patient tolerated the procedure well and was subsequently transported to orthopedic floor. Patient's orthopeidc and medical care was provided daily. Patient had daily laboratory tests performed for evaluation of overall blood counts. Patient had daily physical therapy to include strengthening range of motion as well as education with walker ambulation. Patient was treated with Lovenox for their postoperative DVT prophylaxis during their inpatient stay. Patient was noted to have a relatively uneventful postoperative course. Patient reported satisfactory pain control with oral pain medications by postoperative day 4+1. Patient showed satisfactory progress with physical therapy. Patient moved steadily through the program and had no difficulty meeting the goals by postoperative day 4+1. Given patient's otherwise satisfactory course and having met physical therapy goals, plan is to discharge patient [facility] for rehab on postoperative day 4+1. Discharge condition/disposition: Patient will be discharged [facility] for rehab in stable condition. Discharge medications: Instructions are given on resumption of patient's normal daily medications per primary care recommendation, in addition patient will be prescribed [place] 7.5 mg/325 mg; senna; Duricef; patient to resume Coumadin. Discharge instructions: 1. Wound care and infection precautions, keep incision dry and covered while showering, no lotions, creams, moisturizers. No soaking, tubs, pools, hottubs. Do not scrub over the incision. 2. Weight-bear as tolerated with walker / cane until follow-up. 3. Ice and elevate when necessary. Do not exceed 20 minutes per hour with ice pack. 4. Utilize compression sleeve until seen at first follow up appointment. 5. Nursing care. 6. Physical therapy 7. Pain meds and anticoagulants per prescription. 8. Pain medication has potential to cause constipation. Increase oral fluid and fiber intake. Contact primary care provider if you have not had a bowel movement within 48 hours after discharge 9. No anti-inflammatory medication until discussed at first post operative visit, this including Motrin, Aleve, Mobic, Diclofenac. 10. Follow up in office at [address] Alber Orellana. 11. Follow up with your primary care doctor 7-10 days after discharge. 12. Contact [facility] with any questions, . Keep incision clean, dry, intact. Dressings may come off in 5-7 days Assessment: 1. Lt femoral neck fracture 2. Lt distal radius fracture Procedures: Left hip hemiarthroplasty Left distal radius ORIF Patient Condition at Discharge: Good Plan - Discharge Summary Discharge Rx Participant: No New Discharge Prescriptions: New Sennosides-Docusate Sodium [Senokot-S] 2 each PO HS tab Cholecalciferol [Vitamin D3 (25 Mcg = 1000 Iu)] 50 mcg PO DAILY tablet HYDROcodone/APAP 7.5-325MG [Tempe 7.5] 1 each PO Q6HR PRN #28 tab PRN Reason: Pain Continue Levothyroxine Sodium [Synthroid] 50 mcg PO QAM atenoloL [Tenormin] 25 mg PO DAILY Simvastatin [Zocor] 20 mg PO HS Warfarin [Coumadin] 5 mg PO MOFR Butalb/Acetaminophen/Caffeine [Fioricet 50-325-40 mg Tablet] 1 tab PO Q6H PRN PRN Reason: Migraine Headache Warfarin [Coumadin] 2.5 mg PO SUTUWETHSA Famotidine [Pepcid] 20 mg PO HS Propafenone HCl [Propafenone HCl ER] 225 mg PO Q12HR Gabapentin [Neurontin] 300 mg PO TID #9 cap HYDROcodone/APAP 10-325MG [[place] 10-325] 0.5 tab PO Q3H PRN #24 tab PRN Reason: Pain Nystatin 100,000Unit/gm Cream [Mycostatin Cream] 1 applic TOPICAL BID ALPRAZolam [Xanax] 0.25 mg PO TID PRN #9 tab PRN Reason: Anxiety Discharge Medication List Butalb/Acetaminophen/Caffeine [Fioricet 50-325-40 mg Tablet] 1 tab PO Q6H PRN 12/01/13 [History] Levothyroxine Sodium [Synthroid] 50 mcg PO QAM 12/01/13 [History] Simvastatin [Zocor] 20 mg PO HS 12/01/13 [History] Warfarin [Coumadin] 5 mg PO MOFR 12/01/13 [History] atenoloL [Tenormin] 25 mg PO DAILY 12/01/13 [History] Famotidine [Pepcid] 20 mg PO HS 08/09/15 [History] Warfarin [Coumadin] 2.5 mg PO SUTUWETHSA 08/09/15 [History] Nystatin 100,000Unit/gm Cream [Mycostatin Cream] 1 applic TOPICAL BID 06/01/21 [History] Propafenone HCl [Propafenone HCl ER] 225 mg PO Q12HR 06/01/21 [History] ALPRAZolam [Xanax] 0.25 mg PO TID PRN #9 tab 06/06/21 [Rx] Cholecalciferol [Vitamin D3 (25 Mcg = 1000 Iu)] 50 mcg PO DAILY tablet 06/06/21 [Rx] Gabapentin [Neurontin] 300 mg PO TID #9 cap 06/06/21 [Rx] HYDROcodone/APAP 10-325MG [[place]pe 10-325] 0.5 tab PO Q3H PRN #24 tab 06/06/21 [Rx] HYDROcodone/APAP 7.5-325MG [[place]pe 7.5] 1 each PO Q6HR PRN #28 tab 06/06/21 [Rx] Sennosides-Docusate Sodium [Senokot-S] 2 each PO HS tab 06/06/21 [Rx] Follow up Appointment(s)/Referral(s): hWitney Lowe MD [STAFF PHYSICIAN] - 2 Weeks Orlando Vance MD [Primary Care Provider] - 1 Week (at [facility]) Alber Orellana DO [Doctor of Osteopathic Medicine] - 2 Weeks Activity/Diet/Wound Care/Special Instructions: Discharge instructions: 1. Wound care and infection precautions, keep incision dry and covered while showering, no lotions, creams, moisturizers. No soaking, tubs, pools, hottubs. Do not scrub over the incision. 2. Weight-bear as tolerated with walker / cane until follow-up. 3. Ice and elevate when necessary. Do not exceed 20 minutes per hour with ice pack. 4. Utilize compression sleeve until seen at first follow up appointment. 5. Nursing care. 6. Physical therapy 7. Pain meds and anticoagulants per prescription. 8. Pain medication has potential to cause constipation. Increase oral fluid and fiber intake. Contact primary care provider if you have not had a bowel movement within 48 hours after discharge 9. No anti-inflammatory medication until discussed at first post operative visit, this including Motrin, Aleve, Mobic, Diclofenac. 10. Follow up in office at [address] Alber Orellana. 11. Follow up with your primary care doctor 7-10 days after discharge. 12. Contact [facility] with any questions, . Keep incision clean, dry, intact. Dressings may come off in 5-7 days Discharge Disposition: TRANSFER TO SNF/ECF
--- NOTE | 2021-06-06 13:38 | P.PN ---
Subjective Progress Note Date: 06/06/21 HISTORY OF PRESENT ILLNESS This is an 86-year-old female patient of Dr. 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 Patient states that she went out into the garage to put some pain in the garbage and she ended up having a fall and experienced significant pain in the left hip and left wrist was unable to get up off the ground. She started dragging herself across the garage floor and was next to the large grudge door started pounding out of the next her neighbor heard her. Neighbor called EMS and patient was brought into the clinic in [facility] emergency center for evaluation. EKG was atrial fibrillation with no acute ST changes. Initial blood pressure 173/106 with recheck of 150/81, afebrile, heart rate in 70s and 90s, pulse ox 91%. CBC was unremarkable with hemoglobin 13.2. Sodium 133 otherwise electrolytes and renal function normal. Blood sugar 124. AST 43. CK 288. Coronavirus not detected. Left hip and pelvis x-rays revealed displaced subcapital fracture of the left femur. Chest x-ray reveals mild subsegmental atelectasis or fibrotic changes are increased compared to last exam. Cardiomegaly. No heart failure. CAT scan of the brain and cervical spine revealed no acute intracranial abnormality. Minor degenerative changes in the cervical spine. No fracture. No change. Fibrotic changes noted at the lung apices. X-ray of the left wrist revealed transverse distal metaphyseal radial and ulnar fractures with dorsal angulation. Ulnar styloid avulsion. Patient has been admitted to orthopedics with plan for left hip hemiarthroplasty this afternoon and left wrist open reduction and internal fixation on 06/04. Regarding Coumadin, patient states that she has not been feeling well and has not taken Coumadin for the past 2 days. Patient is complaining of significant left foot pain which is been chronic and she normally sleeps in a chair. Pain medications have been ordered and we will resume gabapentin, Xanax and atenolol to be given prior to surgery today. Consult with cardiology added for clearance secondary to atrial fibrillation and history of [place]. 06/03: Patient is found today sitting up in recliner and appears to be comfortable. She has a Ocampo catheter in place with plan for removal and urinalysis to be checked. Yesterday, patient underwent left hip hemiarthroplasty. Patient was also evaluated by cardiology with recommendations to continue home medications and will need anticoagulation with Coumadin or IV heparin after surgery. Patient is scheduled to undergo left wrist open reduction internal fixation tomorrow and we will plan to resume Coumadin following the procedure. Patient has been afebrile, heart rate 78, blood pressure 160/70, pulse ox 99% on 4 L nasal cannula. INR 1.7. Creatinine 0.79. Blood sugar 124. Discharge plan is for [facility] for subacute rehab most likely on Sunday. Echocardiogram reveals EF 45-50%, mild aortic valve sclerosis, mild tricuspid regurgitation. 06/04: Patient scheduled surgery for today is delayed until tomorrow due to scheduling issue. Patient is complaining of pain in her left foot which is chronic. She is on her home pain medications as well as IV Dilaudid. Patient has been afebrile, heart rate 79, blood pressure 162/68 and pulse ox 90% on 4 L nasal cannula. Repeat blood work reveals WBC of 16.6, hemoglobin 11.3 and platelet count 186. INR is 1.6. Urine culture is in progress. Urinalysis obtained yesterday revealed blood moderate, leukoesterase moderate, RBCs 42, WBC is 28. 06/05: Patient has just returned from all are where she underwent a left distal radial ORIF with Dr. Orellana. The patient is being placed back on oxygen with pulse ox of 96% on 3 L. She has been afebrile, heart rate 73, blood pressure 132/62. Patient is also followed by cardiology and patient to resume Coumadin once cleared by orthopedics, follow up with Dr. Lowe in the office in a few weeks. Patient is scheduled for discharge to [facility] tomorrow under the care of Dr. Vance. 06/06: She is complaining of pain in her left hip, left forearm and chronic pain in the left foot. She states that she is not sleeping well here in the hospital. She states that secondary to pain. She has Ocampo catheter which will be removed today. Discharge plan is for subacute rehab. Medication reconciliation has been reviewed. Orthopedics is good with resuming Coumadin. REVIEW OF SYSTEMS Constitutional: No fever, no chills, no night sweats. No weight change. No weakness, fatigue or lethargy. Reports daytime sleepiness. EENT: No headache. No blurred vision or double vision, no loss of vision. No loss of Hearing, no ringing in the ears, no dizziness. No nasal drainage or congestion. No epistaxis. No sore throat. Lungs: No shortness of breath, cough, no sputum production. No wheezing. Cardiovascular: No chest pain, no lower extremity edema. No palpitations. No paroxysmal nocturnal dyspnea. No orthopnea. No lightheadedness or dizziness. No syncopal episodes. Abdominal: No abdominal pain. No nausea, vomiting. No diarrhea. No co nstipation. No bloody or tarry stools. No loss of appetite. Genitourinary: No dysuria, increased frequency, urgency. No urinary retention. Musculoskeletal: No myalgias. No muscle weakness, no gait dysfunction, no frequent falls. No back pain. No neck pain. Reports left hip and left wrist discomfort. Integumentary: No wounds, no lesions. No rash or pruritus. No unusual bruising. No change in hair or nails. Neurologic: No aphasia. No facial droop. No change in mentation. No head injury. No headache. No paralysis. No paresthesia. Psychiatric: No depression. No anxiety. No mood swings. Endocrine: No abnormal blood sugars. No weight change. PHYSICAL EXAMINATION Gen: This is 86-year-old female resting in bed and appears to be comfortable. HEENT: Head is atraumatic, normocephalic. Pupils equal, round. Sclerae is anicteric. NECK: Supple. No JVD. No lymphadenopathy. No thyromegaly. LUNGS: Clear to auscultation. No wheezes or rhonchi. No intercostal re tractions. HEART:Regularly irregular rate and rhythm. Systolic murmur. ABDOMEN: Soft. Bowel sounds are present. No masses. No tenderness. Possibly draining clear glenn urine. EXTREMITIES: No pedal edema. No calf tenderness. Left hip wound with no sign of infection, splint in place to the left forearm. NEUROLOGICAL: Patient is awake, alert and oriented x3. Cranial nerves 2 through 12 are grossly intact. ASSESSMENT AND PLAN 1. Left femur fracture status post left hip hemiarthroplasty 06/02. Continue current pain management, PT and OT per per orthopedics, Coumadin to be resumed once cleared by orthopedics.. 2. Left radial and ulnar fractures. Status post left wrist open reduction and internal fixation on 06/05. Resume Coumadin 3. History of coronary artery disease with previous myocardial infarction in 2006 status post stent. Consult with cardiology appreciated. 4. Paroxysmal atrial fibrillation. Patient is continued on Rythmol 150 mg 3 times daily, atenolol 25 mg daily, resume Coumadin, cardiology consult. 5. Hyperlipidemia. Hold simvastatin. 6. Hypertension, hypertensive cardiovascular disease. Continue atenolol and Rythmol. 7. Hypothyroidism. Continue levothyroxine 50 g daily. 8. Migraine headaches. Continue Fioricet as needed. 9. Gastroesophageal reflux disease. Continue Pepcid 20 mg at bedtime. 10. Generalized anxiety disorder. Continue Xanax 0.5 mg 2 times daily. 11. Chronic left foot pain and neuropathy. Continue gabapentin 300 mg 3 times daily, [place] 10 one half tablet every 3 hours as needed. 12. COVID-19 testing negative. Patient has been hospitalized during a pandemic. DISCHARGE PLAN Subacute rehab at [facility] on Sunday. Impression and plan of care have been directed as dictated by the signing physician. Basilia Rodriguez nurse practitioner acting as scribe for signing physic doretha. Objective - Vital Signs Vital signs: Vital Signs Temp 98.0 F 06/06/21 07:42 Pulse 73 06/06/21 07:42 Resp 16 06/06/21 07:42 BP 170/81 06/06/21 07:42 Pulse Ox 95 06/06/21 07:42 Intake & Output 06/05/21 06/06/21 06/06/21 18:59 06:59 18:59 Intake Total 804 Output Total 3 940 Balance 801 -940 Intake: IV 804 Output: Urine 940 Estimated Blood Loss 3 Other: Voiding Method Indwelling Catheter Indwelling Catheter # Bowel Movements 0 - Labs CBC & Chem 7: 06/06/21 08:30 06/03/21 07:44 Labs: Abnormal Lab Results - Last 24 Hours (Table) 06/06/21 Range/Units 08:30 WBC 14.1 H (3.8-10.6) k/uL RBC 3.63 L (3.80-5.40) m/uL Neutrophils # 12.2 H (1.3-7.7) k/uL Lymphocytes # 0.9 L (1.0-4.8) k/uL
[2021-06-06 14:28] VITALS: BP 168/73; PULSE 62; TEMP 97.9
--- NOTE | 2021-06-06 15:47 | P.PN ---
Subjective Progress Note Date: 06/06/21 Principal diagnosis: Left hip femoral neck fracture Left distal radius fracture Patient was seen at bedside this morning resting comfortably lying semirecumbent bed. Splint with Luís wrap was present over the left upper extremity. Social dressing is present over the left lateral hip. Patient says her left hip pain is easing up a bit. Patient mentions there is a moderate amount of bruising arms and that staff on the floor have had difficulty starting IVs on her. Patient says she has not gotten up this morning but is looking forward to getting up with physical therapy. Patient has decided along with her family that going to [facility] for [facility] is the best option at this time. Patient says she has been using incentive spirometer. Patient denies chest pain, fever, short ness breath, nausea, vomiting, change in vision, loss of bowel/bladder control. Objective - Vital Signs Vital signs: Vital Signs Temp 98.0 F 06/06/21 07:42 Pulse 73 06/06/21 07:42 Resp 16 06/06/21 07:42 BP 170/81 06/06/21 07:42 Pulse Ox 95 06/06/21 07:42 Intake & Output 06/05/21 06/06/21 06/06/21 18:59 06:59 18:59 Intake Total 804 Output Total 3 940 500 Balance 801 -940 -500 Intake: IV 804 Output: Urine 940 500 Estimated Blood Loss 3 Other: Voiding Method Indwelling Catheter Indwelling Catheter Indwelling Catheter # Bowel Movements 0 - Exam Inspection: Silver optifoam dressing in place. Incision is intact. Minimal serous drainage. [place] in good place/well aligned. Minimal ecchymosis present near incision. Negative for erythema, open fractures on left leg. Negative for fluctuance/purulence. Luís wrap present over the left wrist/left lower arm. Sensation: Sensation is equal, symmetric, bilaterally intact throughout. Palpation: There is moderate tenderness to palpation over the incision. Nontender to palpation throughout rest exam Range of motion: Patient is able to flex and extend digits in left foot and plantar/dorsiflex left ankle. Left hip/knee ROM limited due to pain. Patient has full range of motion in RUE and RLE. Patient is able to flex and extend left elbow. Limited range of motion left wrist due to splint on wrist. Patient is able to flex and extend digits in the left upper extremity. Motor: Right leg - 5/5 in resisted hip flexion/extension, knee flexion/extension, plantar flexion/dorsiflexion the right ankle; 5/5 in resisted elbow flexion/extension, wrist flexion/extension, shoulder abduction, internal/external rotation of the bilateral UE. Left leg motor exam limited due to patient's pain. Rehab Office Coordinator strength 4/5 in bilateral UE Neurovascular: Refill under 3 seconds bilaterally in upper extremity digits. DP pulses intact, bilaterally, 2+. - Labs CBC & Chem 7: 06/06/21 08:30 06/03/21 07:44 Labs: Abnormal Lab Results - Last 24 Hours (Table) 06/06/21 Range/Units 08:30 WBC 14.1 H (3.8-10.6) k/uL RBC 3.63 L (3.80-5.40) m/uL Neutrophils # 12.2 H (1.3-7.7) k/uL Lymphocytes # 0.9 L (1.0-4.8) k/uL Assessment and Plan Assessment: 1. Left hip femoral neck fracture - Postoperative day 4 status post left hip hemiarthroplasty 2. Left distal radius & ulnar fractures - Postop day #1 status post left distal radius ORIF Plan: 1. Left femoral neck fracture - surgery performed , 06/02/2021 - left hip hemiarthroplasty. Patient stable at bedside today. 2. Left distal radius and ulnar fractures - splint in place. surgery performed yesterday, 06/05/2021, - ORIF left wrist. 3. Appreciate medical management 4. Pain management - Tylenol ; [place]; Gabapentin; dilaudid if needed 5. DVT prophylaxis - Lovenox; patient is to resume Coumadin today 6. GI prophylaxis - senna 7. PT/OT - wbat left leg with walker and assistance. NWB left arm 8. Discharge planning - discharge to subacute rehab today, 06/06/2021. Time with Patient: Less than 30
[2021-06-06] MEDS ORDERED: WARFARIN 5 MG TAB PO ONE (18:00)
== END 2021-06-06 16:24 | DRG 522 ==
LOC: EC 20:30 → 5NMEDONC 23:13 → 1SOBS 06-02 00:31 → 4SSUR 06-02 22:32
PROVIDERS: ADMIT Orthopaedic Surgery; ATTEND Orthopaedic Surgery
PROC: 0SRS0JZ Replacement of Left Hip Joint, Femoral Surface with Synthetic Substitute, Open Approach (ICD-10-PCS; principal; 2021-06-02 08:50)
PROC: 0PSJ04Z Reposition Left Radius with Internal Fixation Device, Open Approach (ICD-10-PCS; 2021-06-05)
DX: S72.012A Unspecified intracapsular fracture of left femur, initial encounter for closed fracture (principal); S52.572A Other intraarticular fracture of lower end of left radius, initial encounter for closed fracture; J98.11 Atelectasis; S52.612A Displaced fracture of left ulna styloid process, initial encounter for closed fracture; W01.0XXA Fall on same level from slipping, tripping and stumbling without subsequent striking against object, initial encounter; Y92.015 Private garage of single-family (private) house as the place of occurrence of the external cause; E03.9 Hypothyroidism, unspecified; E78.5 Hyperlipidemia, unspecified; F17.210 Nicotine dependence, cigarettes, uncomplicated; F41.1 Generalized anxiety disorder; G43.909 Migraine, unspecified, not intractable, without status migrainosus; G62.9 Polyneuropathy, unspecified; G89.29 Other chronic pain; I11.9 Hypertensive heart disease without heart failure; I25.10 Atherosclerotic heart disease of native coronary artery without angina pectoris; I25.2 Old myocardial infarction; Z20.822 Contact with and (suspected) exposure to COVID-19; I35.8 Other nonrheumatic aortic valve disorders; I48.0 Paroxysmal atrial fibrillation; K21.9 Gastro-esophageal reflux disease without esophagitis; R79.1 Abnormal coagulation profile; Z79.01 Long term (current) use of anticoagulants; Z79.890 Hormone replacement therapy; Z79.899 Other long term (current) drug therapy; Z82.49 Family history of ischemic heart disease and other diseases of the circulatory system; Z82.5 Family history of asthma and other chronic lower respiratory diseases; Z90.711 Acquired absence of uterus with remaining cervical stump; Z95.5 Presence of coronary angioplasty implant and graft
CPT/HCPCS: 36415; 70450; 71045; 72125; 73501; 73502; 80053; 81001; 82550; 82553; 83690; 83880; 85025; 85610; 86850; 86900; 86901; 87086; 87635; 88305; 88311; 93005; 93306; 96374; 96376; 99285

== ENCOUNTER 2023-07-17 19:33 | Inpatient (IN) | payer MEDICARE ==
[2023-07-17] MEDS ORDERED: HYDROmorphone 0.5 MG/0.5 ML SYRINGE IVP STA ×2 (19:47→22:25)
--- NOTE | 2023-07-17 19:51 | ED ---
Fall HPI - General Stated Complaint: Fall, R Hip Pain Time Seen by Provider: 07/17/23 19:36 - History of Present Illness Initial Comments: This is a pleasant 88-year-old female who presents to the emergency department via EMS After sustaining a mechanical fall coming out of a local restaurant. Patient complaining of severe right hip pain which is exacerbated by movement, deviated somewhat by remaining still. It was no head or neck injury. Patient r ecalls the entire event. No anticoagulants or blood thinners otherwise. No chest pain or shortness breath. Patient has no preceding symptomology. Patient states she slipped on ice using her walker. No other extremity pain. No abdominal pain. Did have some nausea secondary to pain. Received 50 g of fentanyl and Zofran en route. MD Complaint: fall - Related Data Home Medications Medication Instructions Recorded Confirmed Levothyroxine Sodium [Synthroid] 50 mcg PO DAILY 12/01/13 07/17/23 Simvastatin [Zocor] 20 mg PO HS 12/01/13 07/17/23 atenoloL [Tenormin] 25 mg PO DAILY 12/01/13 07/17/23 Famotidine [Pepcid] 20 mg PO HS 08/09/15 07/17/23 Propafenone HCl [Propafenone HCl 225 mg PO BID 06/01/21 07/17/23 ER] Butalb/APAP/Caff 50-325-40Mg 1 tab PO Q6H PRN 07/17/23 07/17/23 [Fioricet 50-325-40] HYDROcodone/APAP 7.5-325MG [[place] 1 tab PO Q6HR PRN 07/17/23 07/17/23 7.5] Rivaroxaban [Xarelto] 15 mg PO W/SUPPER 07/17/23 07/17/23 Previous Rx's Medication Instructions Recorded Cholecalciferol [Vitamin D3 (25 50 mcg PO DAILY tablet 06/06/21 Mcg = 1000 Iu)] Gabapentin [Neurontin] 300 mg PO TID #9 cap 06/06/21 Allergies Allergy/AdvReac Type Severity Reaction Status Date / Time amoxicillin Allergy Anaphylaxis Verified 07/17/23 22:44 Penicillins Allergy Anaphylaxis Verified 07/17/23 22:45 morphine AdvReac Nausea & Verified 07/17/23 22:44 Vomiting Review of Systems ROS Statement: Those systems with pertinent positive or pertinent negative responses have been documented in the HPI. ROS Other: All systems not noted in ROS Statement are negative. Past Medical History Past Medical History: Atrial Fibrillation, Hyperlipidemia, Hypertension, Myocardial Infarction ([place]), Thyroid Disorder Additional Past Medical History / Comment(s): IBS, acute coloitis, 3 feces transplants at [facility] Last Myocardial Infarction Date:: 2006 History of Any Multi-Drug Resistant Organisms: C-DIFF Date of last positivie culture/infection: 2014 MDRO Source:: stool Past Surgical History: Cholecystectomy, Heart Catheterization With Stent, Hysterectomy, Orthopedic Surgery Additional Past Surgical History / Comment(s): left foot reconstruction surgery, pubic vaginal sling, partial hysterectomy, colonoscopy. Past Anesthesia/Blood Transfusion Reactions: No Reported Reaction Date of Last Stent Placement:: 2006 Past Psychological History: No Psychological Hx Reported Smoking Status: Former smoker Past Alcohol Use History: None Reported Additional Past Alcohol Use History / Comment(s): Patient smoked when she was a kid. She denies medical marijuana, marijuana, street drug or alcohol use. Sacha westfall is currently living alone. Past Drug Use History: None Reported - Past Family History Mother Family Medical History: Coronary Artery Disease (CAD) Father Family Medical History: Coronary Artery Disease (CAD) Son(s) Family Medical History: COPD Additional Family Medical History / Comment(s): Her maternal grandfather at age 54 from [place] General Exam - General Exam Comments Initial Comments: Patient distress secondary to pain. Cranial nerves XII are intact. Alert and oriented 4. General appearance: alert, in no apparent distress Head exam: Present: atraumatic, normocephalic, normal inspection Eye exam: Present: normal appearance, PERRL, EOMI. Absent: scleral icterus, con junctival injection, periorbital swelling ENT exam: Present: normal exam, normal oropharynx, mucous membranes moist, normal external ear exam. Absent: mucous membranes dry Neck exam: Present: normal inspection, full ROM. Absent: tenderness, meningi smus, lymphadenopathy Respiratory exam: Present: normal lung sounds bilaterally. Absent: respiratory distress, wheezes, rales, rhonchi, stridor, chest wall tenderness, accessory muscle use Cardiovascular Exam: Present: regular rate, normal rhythm, normal heart sounds. Absent: systolic murmur, diastolic murmur, rubs, gallop, clicks GI/Abdominal exam: Present: soft, normal bowel sounds. Absent: distended, tenderness, guarding, rebound, rigid Extremities exam: Present: normal inspection, full ROM, normal capillary refill. Absent: tenderness, pedal edema, joint swelling, calf tenderness Right Hip exam: Present: tenderness, internal rotation. Absent: full ROM, swelling, abrasion, laceration, ecchymosis, deformity, crepitus, erythema, external rotation Back exam: Present: normal inspection Neurological exam: Present: alert, oriented X3, CN II-XII intact Psychiatric exam: Present: normal affect, normal mood Skin exam: Present: warm, dry, intact, normal color. Absent: rash Course Vital Signs 07/17/23 07/18/23 07/18/23 19:41 02:26 04:09 Temperature 97.2 F L Pulse Rate 77 94 93 Respiratory 16 18 17 Rate Blood Pressure 163/97 134/72 148/86 O2 Sat by Pulse 95 95 97 Oximetry 07/18/23 07/18/23 07/18/23 06:04 08:00 12:00 Temperature 98.0 F 98.1 F Pulse Rate 80 86 90 Respiratory 18 18 18 Rate Blood Pressure 159/89 147/99 166/93 O2 Sat by Pulse 97 96 97 Oximetry - Reevaluation(s) Reevaluation #1: 07/17/23 22:26 Patient reevaluated, pain returning. Dilaudid 0.5 mg ordered. IV acetaminophen ordered. Case discussed with orthopedics with subsequent admission. We'll consult medicine. Reevaluation #2: 07/17/23 22:38 Patient's friend here in the room and states that she believes the patient did hit her head when she fell. Initial EMS report stated the patient was not on blood thinners. Patient states she was recently started on Xarelto. Patient's medication list has not been reconcile. Patient no longer taking warfarin. Computed tomography scan of the grayness of the spine indicated as the friend believes the patient did hit her head when she fell. Patient neurologically in tact at this time. 07/17/23 22:39 07/17/23 22:46 Note this patient Reevaluation #3: 07/17/23 22:47 Case discussed in detail with the hospitalist physician, Dr. Zavala,'s who will be on consult for the patient. CT brain and cervical spine pending, this was indicated as the friend here not giving additional history and believes the patient might have hit her head. Patient also recent start on Xarelto. This was gathered after the initial evaluation, E MS initially said no blood thinners Additionally, patient requesting Dr. Griffith even though she has previously seen [facility]. Medical Decision Making - Medical Decision Making Was pt. sent in by a medical professional or institution? @ -no Did you speak to anyone other than the patient for history? @ -EMS, patient's 2 friends, including screw driver operator that was at the restaurant with her. Did you review nursing and triage notes? @ -agree--except for the friend is staying patient did indeed hit her head during this fall. Computed tomography scan was ordered Were old charts reviewed? @ -Previous laboratory values and charts reviewed Differential Diagnosis? @ -Differential diagnosis includes but not limited to: Mechanical fall with hip fracture, hip dislocation, does not appear to be consistent with infectious process or neurovascular injury. Neck consistent with other preceding symptomology such as cardiopulmonary disease. EKG interpreted by me (3pts min.)? @ -Preoperative EKG ordered. X-rays interpreted by me (1pt min.)? @ -Plain film x-rays of the right hip independently interpreted by me shows evidence of a femoral neck fracture. No definitive abnormality and pelvis. Chest x-ray shows minimal bilateral pleural effusions with no other acute changes. Femur shows redemonstration of the femoral neck fracture. 6 studies were independently read by me. Independent interpretation of the computed tomography scan of the brain and cervical spine by me shows no acute pathology. CT interpreted by me (1pt min.)? @ -Computed tomography scan of the brain and cervical spine independently interviewed by me reveals: U/S interpreted by me (1pt. min.)? @ -[none] What testing was considered but not performed? (CT, X-rays, U/S, labs)? Why? @ [CT, X-rays, U/S, labs? Why?] What meds were considered but not given? Why? @ -[none] Did you discuss the management of the patient with other professionals? @ -[facility], case discussed in detail with the on-call orthopedic physician, Dr. Griffith. Note that this patient has previously seen [facility] but is requesting to see Dr. Griffith. This is corroborated by the patient's 2 friends. Did you reconcile home meds? @ -Yes Was smoking cessation discussed for >3mins.? @ -[none] Was critical care preformed (if so, how long)? @ -[none] Were there social determinants of health that impacted care today? How? ( Homelessness, low income, unemployed, alcoholism, drug addiction, transportation, low edu. Level, literacy, decrease access to med. care, [facility], rehab)? @ -, Poor ambulation Was there de-escalation of care discussed even if they declined? (Discuss DNR or withdrawal of care, Hospice)? @ -no What co-morbidities impacted this encounter? (DM, HTN, Smoking, COPD, CAD, Cancer, CVA, Hep., AIDS, mental health diagnosis, sleep apnea, morbid obesity)? @ -Atrial fibrillation, recent started on Xarelto which was gathered on further history once the friends arrived to the emergency department. Was patient admitted / discharged? @ -Patient admitted under orthopedics for definitive care. Undiagnosed new problem with uncertain prognosis? @ -[none] Drug Therapy requiring intensive monitoring for toxicity (Heparin, Nitro, Insulin, Cardizem)? @ -[none] Were any procedures done? @ -[none] Diagnosis/symptom? @ -Closed right hip fracture, mechanical fall, history of atrial fibrillation on anticoagulation Acute, or Chronic, or Acute on Chronic? @ -Acute Uncomplicated (without systemic symptoms) or Complicated (systemic symptoms)? @ -Appears to be uncomplicated at this time Side effects of treatment? @ -[none] Exacerbation, Progression, or Severe Exacerbation] @ -[no] Poses a threat to life or bodily function? @ -yes Note that this patient has previously seen advanced orth[facility] but is requesting to see Dr. Griffith. This is corroborated by the patient's 2 friends. Treatment plan discussed in detail with the patient and her acquaintances that are in the room. Then, patient selecting to be seen by the orthopedic physician [facility]. Crusting Dr. Griffith by name. This patient was endorsed to the ED attending physician upon my leaving. Case discussed in detail. - Lab Data Result diagrams: 07/17/23 17:45 07/17/23 17:45 Lab Results 07/17/23 07/17/23 07/17/23 Range/Units 17:45 17:45 17:45 WBC 8.4 (3.8-10.6) k/uL RBC 4.43 (3.80-5.40) m/uL Hgb 13.9 (11.4-16.0) gm/dL Hct 43.0 (34.0-46.0) % MCV 97.2 (80.0-100.0) fL MCH 31.5 (25.0-35.0) pg MCHC 32.4 (31.0-37.0) g/dL RDW 12.4 (11.5-15.5) % Plt Count 211 (150-450) k/uL MPV 8.1 Neutrophils % 66 % Lymphocytes % 22 % Monocytes % 8 % Eosinophils % 1 % Basophils % 0 % Neutrophils # 5.6 (1.3-7.7) k/uL Lymphocytes # 1.9 (1.0-4.8) k/uL Monocytes # 0.7 (0-1.0) k/uL Eosinophils # 0.1 (0-0.7) k/uL Basophils # 0.0 (0-0.2) k/uL PT 11.4 (10.0-12.5) sec INR 1.1 (<1.2) APTT 22.1 (22.0-30.0) sec Sodium 138 (137-145) mmol/L Potassium 4.4 (3.5-5.1) mmol/L Chloride 104 (98-107) mmol/L Carbon Dioxide 30 (22-30) mmol/L Anion Gap 4 mmol/L BUN 20 H (7-17) mg/dL Creatinine 0.70 (0.52-1.04) mg/dL Est GFR (CKD-EPI)AfAm >90 (>60 ml/min/1.73 sqM) Est GFR (CKD-EPI)NonAf 78 (>60 ml/min/1.73 sqM) Glucose 109 H (74-99) mg/dL Calcium 9.2 (8.4-10.2) mg/dL Total Bilirubin 0.6 (0.2-1.3) mg/dL AST 30 (14-36) U/L ALT 22 (4-34) U/L Alkaline Phosphatase 93 (38-126) U/L Total Protein 7.0 (6.3-8.2) g/dL Albumin 3.8 (3.5-5.0) g/dL Serum Alcohol <10 mg/dL Blood Type Blood Type Recheck Bld Type Recheck Status Antibody Screen Spec Expiration Date 07/17/23 Range/Units 17:45 WBC (3.8-10.6) k/uL RBC (3.80-5.40) m/uL Hgb (11.4-16.0) gm/dL Hct (34.0-46.0) % MCV (80.0-100.0) fL MCH (25.0-35.0) pg MCHC (31.0-37.0) g/dL RDW (11.5-15.5) % Plt Count (150-450) k/uL MPV Neutrophils % % Lymphocytes % % Monocytes % % Eosinophils % % Basophils % % Neutrophils # (1.3-7.7) k/uL Lymphocytes # (1.0-4.8) k/uL Monocytes # (0-1.0) k/uL Eosinophils # (0-0.7) k/uL Basophils # (0-0.2) k/uL PT (10.0-12.5) sec INR (<1.2) APTT (22.0-30.0) sec Sodium (137-145) mmol/L Potassium (3.5-5.1) mmol/L Chloride (98-107) mmol/L Carbon Dioxide (22-30) mmol/L Anion Gap mmol/L BUN (7-17) mg/dL Creatinine (0.52-1.04) mg/dL Est GFR (CKD-EPI)AfAm (>60 ml/min/1.73 sqM) Est GFR (CKD-EPI)NonAf (>60 ml/min/1.73 sqM) Glucose (74-99) mg/dL Calcium (8.4-10.2) mg/dL Total Bilirubin (0.2-1.3) mg/dL AST (14-36) U/L ALT (4-34) U/L Alkaline Phosphatase (38-126) U/L Total Protein (6.3-8.2) g/dL Albumin (3.5-5.0) g/dL Serum Alcohol mg/dL Blood Type O Positive Blood Type Recheck O Pos Bld Type Recheck Status No Antibody Screen NEGATIVE Spec Expiration Date 07/20/20232299 Disposition Clinical Impression: Closed right hip fracture Disposition: ADMITTED IP TO THIS HOSP Condition: Fair Is patient prescribed a controlled substance at d/c from ED?: No When asked, does pt state using other controlled substances?: No
[2023-07-17 20:27] LABS: Basophils % (A) 0 %; Eosinophils # (A) 0.1 k/uL (0-0.7); Eosinophils % (A) 1 %; HGB 13.9 gm/dL (11.4-16.0); Lymphocytes # (A) 1.9 k/uL (1.0-4.8); Lymphocytes % (A) 22 %; MCH 31.5 pg (25.0-35.0); MCHC 32.4 g/dL (31.0-37.0); MCV 97.2 fL (80.0-100.0); Mean Platelet Volume 8.1; Monocytes # (A) 0.7 k/uL (0-1.0); Monocytes % (A) 8 %; Neutrophils # (A) 5.6 k/uL (1.3-7.7); Neutrophils % (A) 66 %; Platelet Count 211 k/uL (150-450); RBC 4.43 m/uL (3.80-5.40); RDW 12.4 % (11.5-15.5); WBC 8.4 k/uL (3.8-10.6)
[2023-07-17 20:35] LABS: ALT 22 U/L (4-34); AST 30 U/L (14-36); African American GFR (CKD) >90 (>60 ml/min/1.73 sqM); Albumin 3.8 g/dL (3.5-5.0); Alcohol <10 mg/dL; Alkaline Phosphatase 93 U/L (38-126); Anion Gap 4 mmol/L; Blood Urea Nitrogen 20 mg/dL (7-17); Calcium 9.2 mg/dL (8.4-10.2); Carbon Dioxide 30 mmol/L (22-30); Chloride 104 mmol/L (98-107); Glucose 109 mg/dL (74-99); Non-African American GFR(CKD) 78 (>60 ml/min/1.73 sqM); Potassium 4.4 mmol/L (3.5-5.1); Sodium 138 mmol/L (137-145); Total Bilirubin 0.6 mg/dL (0.2-1.3)
[2023-07-17 20:51] LABS: INR 1.1 (<1.2); Partial Thromboplastin Time 22.1 sec (22.0-30.0); Prothrombin Time 11.4 sec (10.0-12.5)
--- NOTE | 2023-07-17 21:33 | XR ---
Right hip. HISTORY: Trauma. COMPARISON: None. TECHNIQUE: 3 views the right hip were obtained. FINDINGS: There is a subcapital fracture with marked angulation. There is no hip dislocation. IMPRESSION: Subcapital fracture of the right hip.
[2023-07-17] MEDS ORDERED: ACETAMINOPHEN IV (For NPO) 1,000 MG in EMPTY BAG 1 BAG IVPB STA (22:25)
[2023-07-17] MEDS ORDERED: HYDROmorphone 0.5 MG/0.5 ML SYRINGE IVP PRN (22:27)
[2023-07-17] MEDS ORDERED: ONDANSETRON 4 MG/2 ML VIAL IVP PRN (22:27)
[2023-07-17] MEDS ORDERED: NALOXONE 0.4 MG/ML 1 ML VIAL IV PRN (22:27)
[2023-07-17] MEDS ORDERED: HYDROmorphone 1 MG/ML 1 ML SYRINGE IVP STA (23:10)
[2023-07-17] MEDS: SODIUM CHLORIDE 0.9% 1,000 ML IV SCH (23:27)
--- NOTE | 2023-07-17 23:30 | XR ---
EXAM: XR Chest, 1 View CLINICAL HISTORY: ITS.REASON XR Reason: trauma TECHNIQUE: Frontal view of the chest. COMPARISON: No relevant prior studies available. FINDINGS: Lungs: Unremarkable. No consolidation. Pleural space: Emphysema. Small bilateral pleural effusions. No pneumothorax. Heart: Cardiomegaly. Mediastinum: Unremarkable. Normal mediastinal contour. Bones/joints: Unremarkable. No acute fracture. Vasculature: Calcified aorta. IMPRESSION: Emphysema. Small bilateral pleural effusions.
--- NOTE | 2023-07-18 00:13 | XR ---
EXAM: XR Pelvis, 1 or 2 Views CLINICAL HISTORY: ITS.REASON XR Reason: Trauma TECHNIQUE: Frontal view of the pelvis. COMPARISON: No relevant prior studies available. FINDINGS: Bones/joints: Suspected fracture of the RIGHT femoral neck. This requires repeat imaging with appropriate positioning of images. LEFT hip bipolar hemiarthroplasty. No dislocation. Soft tissues: Cholecystectomy clips. IMPRESSION: Suspected fracture of the RIGHT femoral neck. This requires repeat imaging with appropriate positioning of images.
--- NOTE | 2023-07-18 00:13 | XR ---
EXAM: XR Right Hip With Pelvis When Performed, 1 View CLINICAL HISTORY: ITS.REASON XR Reason: Trauma TECHNIQUE: Frontal view of the right hip with pelvis when performed. COMPARISON: No relevant prior studies available. FINDINGS: Bones/joints: Displaced fracture of the RIGHT transcervical femoral neck. Fracture is displaced by approximately 2 cm. Varus angulation. No dislocation. Soft tissues: Unremarkable. IMPRESSION: Displaced fracture of the RIGHT transcervical femoral neck.
[2023-07-18 01:41] LABS: Amphetamine Screen,Urine Not Detected (NotDetected); Barbiturate Screen,Urine Not Detected (NotDetected); Benzodiazepines Screen,Urine Not Detected (NotDetected); Cocaine Screen,Urine Not Detected (NotDetected); Methadone Screen, Urine Not Detected (NotDetected); Opiate Screen,Urine Detected (NotDetected); Oxycodone Screen, Urine Not Detected (NotDetected); Phencyclidine Screen,Urine Not Detected (NotDetected); Tricyclic Antidepressant,Urine Not Detected (NotDetected); Urn Cannabinoid Scrn Not Detected (NotDetected)
--- NOTE | 2023-07-18 01:47 | CT ---
EXAM: CT Head Without Intravenous Contrast CLINICAL HISTORY: ITS.REASON CT Reason: Head injury, anticoagulation TECHNIQUE: Axial computed tomography images of the head/brain without intravenous contrast. CTDI is 9.5 mGy and DLP is 270.1 mGy-cm. This CT exam was performed using one or more of the following dose reduction techniques: automated exposure control, adjustment of the mA and/or kV according to patient size, and/or use of iterative reconstruction technique. COMPARISON: Comparison made to prior head CT from June 01, 2021. FINDINGS: Brain: Remote ischemic injury of the left cerebellum. No hemorrhage. Mild nonspecific white matter changes. No edema. Ventricles: Mild ventriculomegaly. Bones/joints: Hyperostosis frontalis interna. No acute fracture. Soft tissues: Bilateral hands replacements. Sinuses: Unremarkable as visualized. No acute sinusitis. Mastoid air cells: Unremarkable as visualized. No mastoid effusion. IMPRESSION: Normal head/brain CT. EXAM: CT Cervical Spine Without Intravenous Contrast CLINICAL HISTORY: ITS.REASON CT Reason: Head injury, anticoagulation TECHNIQUE: Axial computed tomography images of the cervical spine without intravenous contrast. CTDI is 9.5 mGy and DLP is 270.1 mGy-cm. This CT exam was performed using one or more of the following dose reduction techniques: automated exposure control, adjustment of the mA and/or kV according to patient size, and/or use of iterative reconstruction technique. COMPARISON: No relevant prior studies available. FINDINGS: Vertebrae: Unremarkable. No acute fracture. Discs/spinal canal/neural foramina: No acute findings. No spinal canal stenosis. Soft tissues: Unremarkable. IMPRESSION: No evidence of acute cervical spine pathology.
[2023-07-18] MEDS: HYDROmorphone 1 MG/ML 1 ML SYRINGE IVP PRN ×3 (02:29→12:14)
[2023-07-18] MEDS ORDERED: TRANEXAMIC 1,000 MG/100ML-NACL 1,000 MG in SALINE 1 100ML.BAG IVPB PRN (06:00)
[2023-07-18 07:22] LABS: Appearance,Urine Clear (Clear); Bacteria,Urine Few /hpf; Bilirubin,Urine Negative (Negative); Blood,Urine Trace (Negative); Color,Urine Light Yellow; Glucose,Urine (UA) Negative (Negative); Hyaline Casts,Urine 1 /lpf (0-2); Ketones,Urine Negative (Negative); Leukocyte Esterase,Urine Negative (Negative); Mucus,Urine Few /hpf; Nitrite,Urine Positive (Negative); Protein,Urine Negative (Negative); RBC,Urine 1 /hpf (0-5); Specific Gravity,Urine 1.019 (1.001-1.035); Squamous Epithelial Cell,Urine <1 /hpf (0-4); Urobilinogen,Urine <2.0 mg/dL (<2.0); WBC,Urine 2 /hpf (0-5)
[2023-07-18] MEDS: SODIUM CHLORIDE 0.9% 1,000 ML IV SCH (09:04)
[2023-07-18] MEDS ORDERED: HYDROmorphone 1 MG/ML 1 ML SYRINGE IVP STA (09:30)
[2023-07-18] MEDS ORDERED: ACETAMINOPHEN IV (For NPO) 1,000 MG in EMPTY BAG 1 BAG IVPB PRN (11:36)
--- NOTE | 2023-07-18 12:56 | P.HPOR ---
History of Present Illness H&P Date: 07/18/23 This is an 88-year-old female who is admitted for right hip fracture. Patient is seen and evaluated at bedside in the emergency room today. Patient states that she slipped outside of a restaurant and fell. Patient reports pain in the right hip. Patient states that she fractured her left hip a couple of years ago, but was able to move back home after rehabilitation. Patient states that she lives alone. Patient is on Xarelto for atrial fibrillation. Patient's past medical history significant for atrial fibrillation, hyperlipidemia, hypertension and thyroid disorder, IBS and heart failure. Review of Systems See HPI. Past Medical History Past Medical History: Atrial Fibrillation, Hyperlipidemia, Hypertension, Myocardial Infarction ([place]), Thyroid Disorder Additional Past Medical History / Comment(s): IBS, acute coloitis, 3 feces transplants at [facility] Last Myocardial Infarction Date:: 2006 History of Any Multi-Drug Resistant Organisms: C-DIFF Date of last positivie culture/infection: 2014 MDRO Source:: stool Past Surgical History: Cholecystectomy, Heart Catheterization With Stent, Hysterectomy, Orthopedic Surgery Additional Past Surgical History / Comment(s): left foot reconstruction surgery, pubic vaginal sling, partial hysterectomy, colonoscopy. Past Anesthesia/Blood Transfusion Reactions: No Reported Reaction Date of Last Stent Placement:: 2006 Past Psychological History: No Psychological Hx Reported Smoking Status: Former smoker Past Alcohol Use History: None Reported Additional Past Alcohol Use History / Comment(s): Patient smoked when she was a kid. She denies medical marijuana, marijuana, street drug or alcohol use. Patient is currently living alone. Past Drug Use History: None Reported - Past Family History Mother Family Medical History: Coronary Artery Disease (CAD) Father Family Medical History: Coronary Artery Disease (CAD) Son(s) Family Medical History: COPD Additional Family Medical History / Comment(s): Her maternal grandfather at age 54 from [place] Medications and Allergies Home Medications Medication Instructions Recorded Confirmed Type Levothyroxine Sodium [Synthroid] 50 mcg PO DAILY 12/01/13 07/17/23 History Simvastatin [Zocor] 20 mg PO HS 12/01/13 07/17/23 History atenoloL [Tenormin] 25 mg PO DAILY 12/01/13 07/17/23 History Famotidine [Pepcid] 20 mg PO HS 08/09/15 07/17/23 History Propafenone HCl [Propafenone HCl 225 mg PO BID 06/01/21 07/17/23 History ER] Cholecalciferol [Vitamin D3 (25 50 mcg PO DAILY tablet 06/06/21 07/17/23 Rx Mcg = 1000 Iu)] Gabapentin [Neurontin] 300 mg PO TID #9 cap 06/06/21 07/17/23 Rx Butalb/APAP/Caff 50-325-40Mg 1 tab PO Q6H PRN 07/17/23 07/17/23 History [Fioricet 50-325-40] HYDROcodone/APAP 7.5-325MG [[place] 1 tab PO Q6HR PRN 07/17/23 07/17/23 History 7.5] Rivaroxaban [Xarelto] 15 mg PO W/SUPPER 07/17/23 07/17/23 History Allergies Allergy/AdvReac Type Severity Reaction Status Date / Time amoxicillin Allergy Anaphylaxis Verified 07/17/23 22:44 Penicillins Allergy Anaphylaxis Verified 07/17/23 22:45 morphine AdvReac Nausea & Verified 07/17/23 22:44 Vomiting Physical Examination On exam patient is resting comfortably in bed in no acute distress. Patient is alert and oriented x3. Right lower extremity: The right lower extremity is shortened and externally rotated. Skin is intact. There is minimal swelling. Right lower extremity is warm and well perfused. Calves are soft and nontender to palpation. Sensation intact. Neurovascular status and circulatory status are intact. Exams of bilateral upper extremities, left lower extremity, head and neck are within normal limits. Results X-rays of the right hip, right femur and pelvis are reviewed and reveal displaced right femoral neck fracture. - Labs Labs: Abnormal Lab Results - Last 24 Hours (Table) 07/17/23 07/18/23 07/18/23 Range/Units 17:45 01:05 01:05 BUN 20 H (7-17) mg/dL Glucose 109 H (74-99) mg/dL Urine Blood Trace H (Negative) Urine Nitrite Positive H (Negative) Urine Bacteria Few H (None) /hpf Urine Mucus Few H (None) /hpf Urine Opiates Screen Detected H (NotDetected) H & H 07/17/23 Range/Units 17:45 Hgb 13.9 (11.4-16.0) gm/dL Hct 43.0 (34.0-46.0) % Coagulation 07/17/23 Range/Units 17:45 INR 1.1 (<1.2) Result Diagrams: 07/17/23 17:45 07/17/23 17:45 Assessment and Plan (1) Fall Current Visit: Yes Status: Acute Code(s): W19.XXXA - UNSPECIFIED FALL, INITIAL ENCOUNTER SNOMED Code(s): 0173221 (2) Closed right hip fracture Current Visit: Yes Status: Acute Code(s): S72.001A - FRACTURE OF UNSP PART OF NECK OF RIGHT FEMUR, INIT SNOMED Code(s): 814955003 Plan: 1. NPO 2. Continue bed rest and pain control. 3. Planning for right hip hemiarthroplasty with direct anterior approach later today pending medical clearance and patient consent.
[2023-07-18] MEDS: PROPAFENONE 150 MG TAB PO SCH ×4 (13:16→23:19)
[2023-07-18] MEDS ORDERED: FUROSEMIDE 10 MG/ML 2 ML VIAL IV ONE (14:00)
--- NOTE | 2023-07-18 14:00 | P.CONS ---
"History of Present Illness - Reason for Consult Preoperative clearance - History of Present Illness A 88-year-old female admitted for right hip fracture after mechanical fall does have history of coronary artery disease denied any chest pain at this time. Does have history of congestive heart failure with EF of around 40 with 50% on diuretics at home with good renal function at this time chest x-ray did show mild pulmonary edema with elevated BNP of 8480 IV fluids are being discontinued at this time patient was given a dose of Lasix. EKG did not show any acute ST-T wave changes she is in severe pain. She does have history of atrial fibrillation on anticoagulation REVIEW OF SYSTEMS: CONSTITUTIONAL: No fever, no malaise, no fatigue. HEENT: No recent visual problems or hearing problems. Denied any sore throat. CARDIOVASCULAR: No chest pain, orthopnea, PND, no palpitations, no syncope. PULMONARY: No shortness of breath, no cough, no hemoptysis. GASTROINTESTINAL: No diarrhea, no nausea, no vomiting, no abdominal pain. NEUROLOGICAL: No headaches, no weakness, no numbness. HEMATOLOGICAL: Denies any bleeding or petechiae. GENITOURINARY: Denies any burning micturition, frequency, or urgency. MUSCULOSKELETAL/RHEUMATOLOGICAL: As mentioned above ENDOCRINE: Denies any polyuria or polydipsia. The rest of the 14-point review of systems is negative. PHYSICAL EXAMINATION: GENERAL: The patient is alert and oriented x3, not in any acute distress. Thin built HEENT: Pupils are round and equally reacting to light. EOMI. No scleral icterus. No conjunctival pallor. Normocephalic, atraumatic. No pharyngeal erythema. No thyromegaly. CARDIOVASCULAR: S1 and S2 present. No murmurs, rubs, or gallops. PULMONARY: Chest is clear to auscultation, no wheezing or crackles. ABDOMEN: Soft, nontender, nondistended, normoactive bowel sounds. No palpable organomegaly. MUSCULOSKELETAL: Deferred to orthopedic surgery EXTREMITIES: No cyanosis, clubbing, or pedal edema. NEUROLOGICAL: Gross neurological examination did not reveal any focal deficits. SKIN: No rashes. Assessment and plan Preoperative clearance: Patient is intermediate to high operative risk for surgery considering her age, COPD history congestive heart failure history, coronary artery disease history and atrial fibrillation. Patient to IV fluids will be discontinue will be given a dose of Lasix I discussed with the orthopedic PA and advised to avoid IV fluids perioperative period if possible. Considering patient's pain this is an urgent surgery so progress of the surgery was discussed with the patient and patient should be able to go for surgery today. EKG will be obtained, echocardiogram will be obtained -Persistent atrial fibrillation patient will be resumed on propafenone, patient the need to be started on anticoagulation post surgery -Hypertension Hyperlipidemia eripheral neuropathy DVT prophylaxis:| Resume anticoagulation after surgery Past Medical History Past Medical History: Atrial Fibrillation, Hyperlipidemia, Hypertension, Myocardial Infarction ([place]), Thyroid Disorder Additional Past Medical History / Comment(s): IBS, acute coloitis, 3 feces transplants at [facility] Last Myocardial Infarction Date:: 2006 History of Any Multi-Drug Resistant Organisms: C-DIFF Year Discovered:: 2014 MDRO Source:: stool Past Surgical History: Cholecystectomy, Heart Catheterization With Stent, Hysterectomy, Orthopedic Surgery Additional Past Surgical History / Comment(s): left foot reconstruction surgery, pubic vaginal sling, partial hysterectomy, colonoscopy. Past Anesthesia/Blood Transfusion Reactions: No Reported Reaction Date of Last Stent Placement:: 2006 Past Psychological History: No Psychological Hx Reported Smoking Status: Former smoker Past Alcohol Use History: None Reported Additional Past Alcohol Use History / Comment(s): Patient smoked when she was a kid. She denies medical marijuana, marijuana, street drug or alcohol use. Patient is currently living alone. Past Drug Use History: None Reported - Past Family History Mother Family Medical History: Coronary Artery Disease (CAD) Father Family Medical History: Coronary Artery Disease (CAD) Son(s) Family Medical History: COPD Additional Family Medical History / Comment(s): Her maternal grandfather at age 54 from [place] Medications and Allergies Home Medications Medication Instructions Recorded Confirmed Type Levothyroxine Sodium [Synthroid] 50 mcg PO DAILY 12/01/13 07/17/23 History Simvastatin [Zocor] 20 mg PO HS 12/01/13 07/17/23 History atenoloL [Tenormin] 25 mg PO DAILY 12/01/13 07/17/23 History Famotidine [Pepcid] 20 mg PO HS 08/09/15 07/17/23 History Propafenone HCl [Propafenone HCl 225 mg PO BID 06/01/21 07/17/23 History ER] Cholecalciferol [Vitamin D3 (25 50 mcg PO DAILY tablet 06/06/21 07/17/23 Rx Mcg = 1000 Iu)] Gabapentin [Neurontin] 300 mg PO TID #9 cap 06/06/21 07/17/23 Rx Butalb/APAP/Caff 50-325-40Mg 1 tab PO Q6H PRN 07/17/23 07/17/23 History [Fioricet 50-325-40] HYDROcodone/APAP 7.5-325MG [[place] 1 tab PO Q6HR PRN 07/17/23 07/17/23 History 7.5] Rivaroxaban [Xarelto] 15 mg PO W/SUPPER 07/17/23 07/17/23 History Allergies Allergy/AdvReac Type Severity Reaction Status Date / Time amoxicillin Allergy Anaphylaxis Verified 07/17/23 22:44 Penicillins Allergy Anaphylaxis Verified 07/17/23 22:45 morphine AdvReac Nausea & Verified 07/17/23 22:44 Vomiting Physical Exam Vitals: Vital Signs Temp Pulse Resp BP Pulse Ox 07/18/23 08:00 98.0 F 86 18 147/99 96 07/18/23 06:04 80 18 159/89 97 07/18/23 04:09 93 17 148/86 97 07/18/23 02:26 94 18 134/72 95 07/17/23 19:41 97.2 F L 77 16 163/97 95 Intake and Output 07/17/23 07/18/23 07/18/23 22:59 06:59 14:59 Other: Weight 61.235 kg Results CBC & Chem 7: 07/17/23 17:45 07/17/23 17:45 Labs: Abnormal Lab Results - Last 24 Hours (Table) 07/17/23 07/18/23 07/18/23 Range/Units 17:45 01:05 01:05 BUN 20 H (7-17) mg/dL Glucose 109 H (74-99) mg/dL Urine Blood Trace H (Negative) Urine Nitrite Positive H (Negative) Urine Bacteria Few H (None) /hpf Urine Mucus Few H (None) /hpf Urine Opiates Screen Detected H (NotDetected)"
[2023-07-18] MEDS ORDERED: IV FLUID CONTINUATION 400 ML IV ONE (14:50)
[2023-07-18] MEDS ORDERED: ONDANSETRON 4 MG/2 ML VIAL IVP ONE ×2 (14:55→17:48)
[2023-07-18] MEDS ORDERED: DEXAMETHASONE SOD PHOSPHATE 4 MG/ML 1 ML VIAL IVP ONE (14:56)
[2023-07-18] MEDS ORDERED: NEOSTIGMINE 1 MG/ML 10 ML VIAL ONE (15:46)
[2023-07-18] MEDS ORDERED: ROCURONIUM 10 MG/ML (5 ML VIAL) IV ONE (15:46)
[2023-07-18] MEDS ORDERED: fentaNYL (PF) 50 MCG/ML 2 ML AMP ONE (15:46)
[2023-07-18] MEDS ORDERED: PHENYLEPHRINE 10 MG/ML VIAL ONE (15:46)
[2023-07-18] MEDS ORDERED: SUCCINYLCHOLINE CHLORIDE 200 MG/10 ML VIAL IV ONE (15:46)
[2023-07-18] MEDS ORDERED: GLYCOPYRROLATE 0.2 MG/ML 2 ML VIAL ONE (15:46)
[2023-07-18] MEDS ORDERED: LIDOCAINE 1% INJ 10MG/ML (20 ML MDV) ONE (15:46)
[2023-07-18] MEDS ORDERED: MIDAZOLAM 2 MG/2 ML VIAL ONE (15:46)
[2023-07-18] MEDS ORDERED: PROPOFOL 10 MG/ML 20 ML VIAL IV ONE (15:46)
[2023-07-18] MEDS ORDERED: TRANEXAMIC 1,000 MG/100ML-NACL PREMIX BAG ONE (15:46)
[2023-07-18] MEDS ORDERED: ceFAZolin 1,000 MG in SODIUM CHLORIDE 0.9% 1,000 ML IRRIGATION ONE (16:16)
[2023-07-18] MEDS ORDERED: LACTATED RINGERS 1,000 ML IV ONE (16:23)
[2023-07-18] MEDS ORDERED: ROPIVACAINE 5 MG/ML 30 ML VIAL MISCELLANE ONE (16:31)
--- NOTE | 2023-07-18 16:50 | P.OP ---
Date of Procedure: 07/18/23 Preoperative Diagnosis: Subcapital fracture right hip Postoperative Diagnosis: Subcapital fracture right hip Procedure(s) Performed: Right hip hemiarthroplasty with a direct anterior approach Implants: Cutler and nephew Polarstem size 4 standard with a collar Cutler [employer] Nephew tandem unipolar, 49 mm Cutler [employer] Nephew tandem unipolar 12/14 taper sleeve, +0 mm All components were press-fit. Anesthesia: GETA Surgeon: Shade Griffith Blasting Cap Assembler #1: Ghislaine Nichols Estimated Blood Loss (ml): 200 Pathology: none sent Condition: stable Disposition: PACU Indications for Procedure: This is an 88-year-old female that sustained a ground-level fall today. X-rays demonstrate a subcapital fracture of her right hip. After discussing the surgical nonsurgical treatment options with her at length, I recommended a right hip hemiarthroplasty with direct anterior approach. Informed consent was obtained. Operative Findings: The operative findings are consistent with a subcapital fracture of the right hip Description of Procedure: The patient was seen and evaluated in the preoperative area and the consent was reviewed. The operative site was marked with a skin marker. The patient verified the procedure and operative site. A OZZIE block was placed by anesthesia in the preoperative area. The patient was then brought to the operating room and given preoperative antibiotics intravenously. 1 g of Tranexamic acid was also given intravenously. A general anesthetic was administered by the anesthesia department. The patient was then placed on the [place] table with the bony prominences well-padded. The hip area was then prepped with a ChloraPrep solution and draped in the usual sterile fashion. A universal timeout was then performed, which confirmed the patient's name, surgical site, ALLERGIES, and procedure being performed on the consent. Next the incision site was located at 1 cm distal and 4 cm lateral to the anterior superior iliac spine. The skin and subcutaneous tissues were sharply incised. Incision was carefully dissected down to the fascia overlying the tensor fascia natalya muscle. This fascia was then incised in line with the muscle fibers. Care was taken to stay laterally in order to avoid injuring the lateral femoral cutaneous nerve. Next, using blunt finger dissection, the tensor fascia natalya muscle was dissected off its investing fascia. The muscle was then carefully retracted laterally with a cobra retractor over the lateral neck of the femur. Next, the circumflex vessels were identified and cauterized using the Aquamantis device. The anterior hip capsule was then exposed. The capsule was then opened and an inverted T fashion. The retractors were then placed intracapsularly. The retractors were maintained intracapsular throughout the procedure. The proximal femur was then visualized. A small amount of traction was placed on the leg. The femoral neck was then osteotomized at the appropriate level above the lesser trochanter. A small wedge of bone was then removed from the remaining femoral head. Next, using a corkscrew the femoral head was removed from the acetabulum. The femoral head was then measured. Attention was then turned to the acetabulum. The acetabulum was exposed and inspected. There was no evidence of any significant arthrosis. Attention was then directed to the femur. With the aid of the [place] table, the femur was externally rotated to approximately 130, extended, and adducted under the opposite leg. A side hook was then placed under the proximal femur, and the side hook elevator was used to elevate the proximal femur while releasing the capsule. Retractors were then placed. A capsular release was performed, as well as a release of the conjoined tendon, which afforded excellent v isualization of the proximal femur. Next, a box osteotome was used to lateralize the proximal femur. A teacher of the handicapped was then used to locate the femoral canal. Sequential broaching was then performed with appropriate size which afforded excellent fixation in the proximal femur. A trial was then placed with appropriate head and neck, and the hip was gently reduced with the aid of the [place] table. Fluoroscopy was then used to check position of the components, as well as to evaluate the leg lengths and offset. The leg lengths and offset were measured as closely as possible to ensure stability of the hip. The hip was then gently dislocated and the trials were then removed. Final implants were then impacted and the hip was again reduced. Final fluoroscopic x-rays confirmed that the components were in anatomic position. The leg lengths and offset were measured and were found to coincide with the trial measurements. The hip was also taken through range of motion, and found to be stable. The hip was then copiously irrigated with antibiotic solution with pulsatile lavage. The hip was then irrigated with Irrisept solution. The soft tissues were then injected with a ropivacaine solution. A second dose of 1 g of Tranexamic acid was also given intravenously. The fascia was then closed with 2-0 strata fix suture. The subcutaneous tissue was closed with 3-0 Vicryl. The subcuticular tissue was closed with 3-0 strata fix suture. The skin was then closed with Exofin skin glue. After the glue and dried, and Optifoam silver impregnated dressing was applied. The patient was t hen transferred to the recovery room in stable condition. The furniture removalist's assistant ALIZA Cherry was required due to the complexity of surgery, and the need for skilled surgical corsetier for positioning, draping, exposure, retraction, and closure of the wound.
--- NOTE | 2023-07-18 17:01 | FL ---
EXAMINATION TYPE: FL guidance operating room, XR Hip Limited RT Intraoperative/procedural fluoroscopi c services were provided. Total fluoroscopy time is 24 seconds with a total of 3 submitted images to PACS. Please see the operative/procedural note for further details. DAP: 0.7 09/05/1928 Gycm2
[2023-07-18] MEDS ORDERED: NALOXONE 0.4 MG/ML 1 ML VIAL IV PRN (17:13)
[2023-07-18] MEDS ORDERED: MAGNESIUM HYDROXIDE 2,400 MG/30 ML CUP PO PRN (17:13)
[2023-07-18] MEDS ORDERED: HYDROcodone/APAP 5-325MG 1 EACH TAB PO PRN (17:13)
[2023-07-18] MEDS ORDERED: HYDROmorphone 0.5 MG/0.5 ML SYRINGE IVP ONE (17:43)
[2023-07-18] MEDS ORDERED: SODIUM CHLORIDE 0.9% 1,000 ML IV SCH ×2 (17:45)
--- NOTE | 2023-07-18 18:33 | XR ---
EXAMINATION TYPE: XR Hip Limited RT DATE OF EXAM: 07/18/2023 5:59 PM CLINICAL INDICATION:Female, 88 years old with history of Status post hip surgery, assess surgical ali gnment; [facility] COMPARISON: 07/17/2023.. TECHNIQUE: XR Hip Limited RT; hip was examined in the frontal and lateral projections and a AP pelvis . FINDINGS: Post arthroplasty changes, hardware is intact, alignment is appropriate. No evidence of fra cture. Postoperative changes of the soft tissues with subcutaneous gas. No evidence of any acute osse ous pathology or joint dislocation. IMPRESSION: Hip arthroplasty with hardware intact and in appropriate alignment. No acute fracture.
[2023-07-18] MEDS: SENNOSIDES-DOCUSATE SODIUM 1 EACH TAB PO SCH (21:09)
[2023-07-18] MEDS: HYDROcodone/APAP 5-325MG 1 EACH TAB PO PRN (21:09)
[2023-07-18] MEDS: FAMOTIDINE 20 MG TAB PO SCH (21:09)
[2023-07-19] MEDS: HYDROcodone/APAP 5-325MG 1 EACH TAB PO PRN ×2 (06:06→18:43)
[2023-07-19] MEDS: atenoloL 25 MG TAB PO SCH (08:08)
[2023-07-19] MEDS: PROPAFENONE 150 MG TAB PO SCH ×3 (08:08→21:27)
--- NOTE | 2023-07-19 09:30 | P.CRDCN ---
History of Present Illness History of present illness: HISTORY OF PRESENT ILLNESS: This is a 88-year-old female with a past medical history significant for coronary artery disease, paroxysmal atrial fibrillation, hypertension, and hyperlipidemia. Patient follows in the office with Dr. Lowe. We have been asked to see the patient in consultation for cardiac clearance. Patient examined at the bedside. Patient presented to the hospital after sustaining a fall. She was found to have a fracture of her right hip. Patient has artery underwent surgery and had a right hip hemiarthroplasty performed. Patient examined this morning at bedside. She denies chest pain or pressure. She denies shortness of breath. Vital signs are stable. EKG reveals atrial fibrillation with controlled ventricular rate. Her Xarelto is ordered to be resumed tonight. REVIEW OF SYSTEMS: At the time of my exam: CONSTITUTIONAL: Denies fever or chills. HEENT: Denies blurred vision, vision changes, or eye pain. Denies hemoptysis CARDIOVASCULAR: Denies chest pain. Denies orthopnea. Denies PND. Denies p alpitations RESPIRATORY: Denies shortness of breath. GASTROINTESTINAL: Denies abdominal pain. Denies nausea or vomiting. HEMATOLOGIC: Denies bleeding disorders. GENITOURINARY: Denies any blood in urine. SKIN: Denies pruitis. Denies rash. PHYSICAL EXAM: VITAL SIGNS: Reviewed. GENERAL: Well-developed in no acute distress. HEENT: Head is normocephalic. Pupils are equal, round. Sclerae anicteric. Mucous membranes of the mouth are moist. Neck supple. No JVD or thyromegaly LUNGS: Respirations even and unlabored. Lungs essentially clear to auscultation bilaterally. HEART: Irregular rate and rhythm. S1 and S2 heard. ABDOMEN: Soft. Nondistended. Nontender. EXTREMITIES: Normal range of motion. No clubbing or cyanosis. Peripheral pulses intact. No lower extremity edema NEUROLOGIC: Awake and alert. Oriented x 3. ASSESSMENT: Right hip fracture, status post fall Coronary artery disease with previous stenting Paroxysmal atrial fibrillation Hypertension Hyperlipidemia PLAN: Patient has already undergone surgical intervention, thus cardiac clearance is no longer required at this point 2-D echo has been ordered. Await results Continue current cardiac medications Patient is currently stable from a cardiac perspective Further recommendations pending patient's course Nurse practitioner note has been reviewed by physician. Signing provider agrees with the documented findings, assessment, and plan of care. Past Medical History Past Medical History: Atrial Fibrillation, Hyperlipidemia, Hypertension, Myocardial Infarction ([place]), Thyroid Disorder Additional Past Medical History / Comment(s): IBS, acute coloitis, 3 feces transplants at [facility] Last Myocardial Infarction Date:: 2006 History of Any Multi-Drug Resistant Organisms: C-DIFF Date of last positivie culture/infection: 2014 MDRO Source:: stool Past Surgical History: Cholecystectomy, Heart Catheterization With Stent, Hysterectomy, Orthopedic Surgery Additional Past Surgical History / Comment(s): left foot reconstruction surgery, pubic vaginal sling, partial hysterectomy, colonoscopy. Past Anesthesia/Blood Transfusion Reactions: No Reported Reaction Date of Last Stent Placement:: 2006 Past Psychological History: No Psychological Hx Reported Smoking Status: Former smoker Past Alcohol Use History: None Reported Additional Past Alcohol Use History / Comment(s): Patient smoked when she was a kid. She denies medical marijuana, marijuana, street drug or alcohol use. Patient is currently living alone. Past Drug Use History: None Reported - Past Family History Mother Family Medical History: Coronary Artery Disease (CAD) Father Family Medical History: Coronary Artery Disease (CAD) Son(s) Family Medical History: COPD Additional Family Medical History / Comment(s): Her maternal grandfather at age 54 from [place] Medications and Allergies Home Medications Medication Instructions Recorded Confirmed Type Levothyroxine Sodium [Synthroid] 50 mcg PO DAILY 12/01/13 07/17/23 History Simvastatin [Zocor] 20 mg PO HS 12/01/13 07/17/23 History atenoloL [Tenormin] 25 mg PO DAILY 12/01/13 07/17/23 History Famotidine [Pepcid] 20 mg PO HS 08/09/15 07/17/23 History Propafenone HCl [Propafenone HCl 225 mg PO BID 06/01/21 07/17/23 History ER] Cholecalciferol [Vitamin D3 (25 50 mcg PO DAILY tablet 06/06/21 07/17/23 Rx Mcg = 1000 Iu)] Gabapentin [Neurontin] 300 mg PO TID #9 cap 06/06/21 07/17/23 Rx Butalb/APAP/Caff 50-325-40Mg 1 tab PO Q6H PRN 07/17/23 07/17/23 History [Fioricet 50-325-40] HYDROcodone/APAP 7.5-325MG [[place] 1 tab PO Q6HR PRN 07/17/23 07/17/23 History 7.5] Rivaroxaban [Xarelto] 15 mg PO W/SUPPER 07/17/23 07/17/23 History HYDROcodone/APAP 5-325MG [[place] 1 - 2 tab PO Q6HR PRN #32 tab 07/18/23 Rx 5-325] Allergies Allergy/AdvReac Type Severity Reaction Status Date / Time amoxicillin Allergy Anaphylaxis Verified 07/17/23 22:44 Penicillins Allergy Anaphylaxis Verified 07/17/23 22:45 morphine AdvReac Nausea & Verified 07/17/23 22:44 Vomiting Physical Exam Vitals: Vital Signs Temp Pulse Pulse Pulse Resp BP BP 07/19/23 08:07 98.5 F 86 18 07/19/23 00:53 97.8 F 86 20 07/18/23 20:45 81 07/18/23 20:30 80 07/18/23 20:15 80 07/18/23 20:00 81 07/18/23 19:45 76 07/18/23 19:30 76 07/18/23 19:15 76 07/18/23 19:00 77 07/18/23 18:48 97.2 F L 67 16 07/18/23 18:45 97.2 F L 75 19 07/18/23 18:15 75 16 07/18/23 18:00 69 16 07/18/23 17:47 89 16 07/18/23 17:30 91 16 07/18/23 17:20 98.7 F 98 07/18/23 14:42 98.1 F 82 16 166/83 07/18/23 12:00 98.1 F 90 18 166/93 BP Pulse Ox 07/19/23 08:07 162/78 96 07/19/23 00:53 133/73 97 07/18/23 20:45 148/75 96 07/18/23 20:30 132/75 96 07/18/23 20:15 133/75 96 07/18/23 20:00 134/84 96 07/18/23 19:45 135/80 96 07/18/23 19:30 150/79 96 07/18/23 19:15 155/81 96 07/18/23 19:00 158/88 96 07/18/23 18:48 152/72 93 L 07/18/23 18:45 152/75 90 L 07/18/23 18:15 161/83 100 07/18/23 18:00 157/88 100 07/18/23 17:47 150/79 100 07/18/23 17:30 141/87 100 07/18/23 17:20 142/88 97 07/18/23 14:42 95 07/18/23 12:00 97 Intake and Output 07/18/23 07/19/23 07/19/23 22:59 06:59 14:59 Intake Total 751 222 Output Total 400 400 Balance 351 -178 Intake: IV 751 Oral 222 Output: Urine 200 400 Estimated Blood Loss 200 Other: Voiding Method Indwelling Catheter Weight 61.235 kg Results 07/17/23 17:45 07/17/23 17:45 Current Medications Generic Name Dose Route Start Last Admin Trade Name Freq PRN Reason Stop Dose Admin Hydrocodone Bitart/Acetaminophen 1 each 07/18/23 17:13 Hydrocodone/Apap 5-325mg 1 Each Tab PO Q6HR PRN Pain Scale 1 to 5 Hydrocodone Bitart/Acetaminophen 2 each 07/18/23 17:13 07/19/23 06:06 Hydrocodone/Apap 5-325mg 1 Each Tab PO 2 each Q6HR PRN Administration Pain Scale 6 to 10 Atenolol 25 mg 07/19/23 09:00 07/19/23 08:08 Atenolol 25 Mg Tab PO 25 mg DAILY KARIE Administration Famotidine 20 mg 07/18/23 21:00 07/18/23 21:09 Famotidine 20 Mg Tab PO 20 mg HS KARIE Administration Hydromorphone HCl 1 mg 07/18/23 00:19 07/18/23 12:14 Hydromorphone 1 Mg/Ml 1 Ml Syringe IVP 1 mg Q3HR PRN Administration Moderate Pain (Scale 4 to 6) Sodium Chloride 1,000 mls @ 40 mls/hr 07/18/23 17:45 07/18/23 20:22 Saline 0.9% IV Not Given .Q24H KARIE Magnesium Hydroxide 2,400 mg 07/18/23 17:13 Magnesium Hydroxide 2,400 Mg/30 Ml Cup PO DAILY PRN Constipation Naloxone HCl 0.2 mg 07/17/23 22:27 Naloxone 0.4 Mg/Ml 1 Ml Vial IV Q2M PRN Opioid Reversal Naloxone HCl 0.2 mg 07/18/23 17:13 Naloxone 0.4 Mg/Ml 1 Ml Vial IV Q2M PRN Opioid Reversal Ondansetron HCl 4 mg 07/17/23 22:27 07/19/23 02:30 Ondansetron 4 Mg/2 Ml Vial IVP 4 mg Q8HR PRN Administration Nausea And Vomiting Propafenone HCl 150 mg 07/18/23 11:45 07/19/23 08:08 Propafenone 150 Mg Tab PO 150 mg TID KARIE Administration Rivaroxaban 15 mg 07/19/23 17:30 Rivaroxaban 15 Mg Tab PO W/SUPPER KARIE Protocol Senna/Docusate Sodium 2 each 07/18/23 21:00 07/18/23 21:09 Sennosides-Docusate Sodium 1 Each Tab PO 2 each HS KARIE Administration Intake and Output 07/18/23 07/19/23 07/19/23 22:59 06:59 14:59 Intake Total 751 222 Output Total 400 400 Balance 351 -178 Intake: IV 751 Oral 222 Output: Urine 200 400 Estimated Blood Loss 200 Other: Voiding Method Indwelling Catheter Weight 61.235 kg 07/17/23 17:45 07/17/23 17:45
[2023-07-19 11:13] LABS: Basophils # (A) 0.03 X 10*3/uL (0.00-0.10); Basophils % (A) 0.2 %; Eosinophils # (A) 0.03 X 10*3/uL (0.04-0.35); Eosinophils % (A) 0.2 %; HCT 42.5 % (37.2-46.3); HGB 13.8 g/dL (12.0-15.0); Lymphocytes # (A) 0.85 X 10*3/uL (0.90-5.00); Lymphocytes % (A) 6.9 %; MCH 31.3 pg (27.0-32.0); MCHC 32.5 g/dL (32.0-37.0); MCV 96.4 FL (80.0-97.0); Mean Platelet Volume 11.1 FL (9.5-12.2); Monocytes % (A) 10.6 %; NRBC Per 100 WBC 0 X 10*3/uL (0.00-0.01); Neutrophils # (A) 10.05 X 10*3/uL (1.80-7.70); Neutrophils % (A) 81.8 %; Platelet Count 199 X 10*3/uL (140-440); RBC 4.41 X 10*6/uL (4.10-5.20); RDW 12.6 % (11.5-14.5)
--- NOTE | 2023-07-19 13:15 | P.PN ---
Subjective Progress Note Date: 07/19/23 This is an 88-year-old female who is status post right hip hemiarthroplasty with a direct anterior approach. This is postoperative day #1 and patient is seen and evaluated at bedside today. Patient complains of soreness in the right hip today, but otherwise denies any new complaints. Objective - Vital Signs Vital signs: Vital Signs Temp 98.5 F 07/19/23 08:07 Pulse 86 07/19/23 08:07 Resp 18 07/19/23 08:07 BP 162/78 07/19/23 08:07 Pulse Ox 96 07/19/23 08:07 FiO2 Intake & Output 07/18/23 07/19/23 07/19/23 18:59 06:59 18:59 Intake Total 951 222 Output Total 400 400 Balance 551 -178 Weight 61.235 kg Intake: IV 951 Oral 222 Output: Urine 200 400 Estimated Blood Loss 200 Other: Voiding Method Indwelling Catheter Indwelling Catheter - Exam Vital signs are stable. Patient is in no acute distress and is alert and oriented 3. Calf is soft and nontender to palpation. Dressing is clean, dry, and intact. Patient has full foot and ankle motion without pain or difficulty. Sensation intact. Neurovascular status and circulatory status are intact. - Labs CBC & Chem 7: 07/19/23 05:57 07/17/23 17:45 Labs: Abnormal Lab Results - Last 24 Hours (Table) 07/19/23 Range/Units 05:57 WBC 12.30 H (4.50-10.00) X 10*3/uL Neutrophils # 10.05 H (1.80-7.70) X 10*3/uL Lymphocytes # 0.85 L (0.90-5.00) X 10*3/uL Monocytes # 1.30 H (0.20-1.00) X 10*3/uL Eosinophils # 0.03 L (0.04-0.35) X 10*3/uL Assessment and Plan (1) Fall Current Visit: Yes Status: Acute Code(s): W19.XXXA - UNSPECIFIED FALL, INITIAL ENCOUNTER SNOMED Code(s): 5455599 (2) Closed right hip fracture Current Visit: Yes Status: Acute Code(s): S72.001A - FRACTURE OF UNSP PART OF NECK OF RIGHT FEMUR, INIT SNOMED Code(s): 587288413 Plan: Continue routine postop care and pain control. Continue anticoagulation with Xarelto. Weightbearing as tolerated with a walker. Leave dressing in place for 7 days. Appreciate input from internal medicine. Anticipate discharge to ECF in the next 24-48 hours.
--- NOTE | 2023-07-19 16:04 | P.PN ---
"Subjective Progress Note Date: 07/19/23 - Reason for Consult Preoperative clearance - History of Present Illness A 88-year-old female admitted for right hip fracture after mechanical fall does have history of coronary artery disease denied any chest pain at this time. Does have history of congestive heart failure with EF of around 40 with 50% on diuretics at home with good renal function at this time chest x-ray did show mild pulmonary edema with elevated BNP of 8480 IV fluids are being discontinued at this time patient was given a dose of Lasix. EKG did not show any acute ST-T wave changes she is in severe pain. She does have history of atrial fibrillation on anticoagulation 07/19/2022 Patient is seen in follow-up status post right hip hemiarthroplasty secondary to fall postop day 1 and is doing relatively well. Patient reports to some discomfort in the right hip and site there is some noted bruising around the surgical site with no significant swelling or tenderness on palpation. Patient working with physical therapy recommending rehab inpatient wanted to go home wit h home care although is agreeable to rehab with case management following working on discharge planning to [facility]. Patient was seen and evaluated by cardiology this morning with home meds resumed recommending continuing current regimen. Patient is currently afebrile with no reported chest pain or shortness of breath. Patient is continued on 2 L via nasal cannula and does not wear oxygen outpatient and did have a mildly elevated BNP with history of heart failure of 8480 and will give a low-dose IV Lasix today and encouraged continued incentive spirometer use and weaning FiO2 as tolerated. Patient denies chest pain or palpitations and reports to feeling somewhat anxious she does not want to return to rehab again although is willing to advance with physical therapy is suggesting. Review of systems: Constitutional: No reports of fatigue, fever, or chills Cardiovascular: No reports of chest pain or palpitations Respiratory: No reports of shortness of breath or cough GI: No reports of nausea, vomiting, or diarrhea, reports passing gas with no bowel movement as of yet : No reports of dysuria or retention Neurovascular: reports of generalized weakness and right hip discomfort All medications have been reviewed PHYSICAL EXAMINATION: GENERAL: The patient is alert and oriented x3, not in any acute distress. Thin built HEENT: Pupils are round and equally reacting to light. EOMI. No scleral icterus. No conjunctival pallor. Normocephalic, atraumatic. No pharyngeal erythema. No thyromegaly. CARDIOVASCULAR: S1 and S2 present. No murmurs, rubs, or gallops. PULMONARY: Chest is clear to auscultation, no wheezing or crackles. ABDOMEN: Soft, nontender, nondistended, normoactive bowel sounds. No palpable organomegaly. MUSCULOSKELETAL: Deferred to orthopedic surgery EXTREMITIES: No cyanosis, clubbing, or pedal edema. Right hip surgical site is dry and intact with some minimal bruising noted and no significant swelling that is soft and palpable in the groin area NEUROLOGICAL: Gross neurological examination did not reveal any focal deficits. Diffusely weak SKIN: No rashes. Assessment: -Mechanical fall right hip fracture, status post right total hip arthroplasty on postop day 1: Patient is considered intermediate to high operative risk for surgery considering her age, COPD history congestive heart failure history, coronary artery disease history and atrial fibrillation. -Persistent atrial fibrillation patient will be resumed on propafenone, resume anticoagulation once cleared by surgery -Hypertension -Hyperlipidemia -Peripheral neuropathy history -DVT prophylaxis:| Resume anticoagulation after surgery -GI prophylaxis -Full code Plan: Continue IV fluids and give a dose of Lasix as patient did have a mildly elevated BNP with concerns of heart failure and patient is continued on 2 L recommend wean FiO2 as tolerated 2-D echo ordered and pending Encourage incentive spirometer at least 10 times every hour while awake Patient was evaluated by physical therapy recommending rehab and patient is agreeable with case management following working on [facility] All medications reviewed and resumed as appropriate Recommend discontinuing indwelling Ocampo catheter Encouraged increased activity as tolerated with restrictions per orthopedics We will continue to follow with orthopedics during hospitalization. Thank you kindly for this consultation. The impression and plan of care has been dictated by Anne Mendez, Nurse Practitioner as directed. Dr. Elia MD I have performed a history and examination and MDM of this patient, discussed the same with the dictator, and agree with the dictator's assessment and plan as written ,documented as a scribe. Based on total visit time, I have performed more than 50% of the visit. Objective - Vital Signs Vital signs: Vital Signs Temp 98.5 F 07/19/23 08:07 Pulse 86 07/19/23 08:07 Resp 18 07/19/23 08:07 BP 162/78 07/19/23 08:07 Pulse Ox 96 01/18/24 08:07 FiO2 Intake & Output 07/18/23 07/19/23 07/19/23 18:59 06:59 18:59 Intake Total 951 222 Output Total 400 400 Balance 551 -178 Weight 61.235 kg Intake: IV 951 Oral 222 Output: Urine 200 400 Estimated Blood Loss 200 Other: Voiding Method Indwelling Catheter Indwelling Catheter - Labs CBC & Chem 7: 07/19/23 05:57 07/17/23 17:45"
[2023-07-19] MEDS ORDERED: FUROSEMIDE 10 MG/ML 2 ML VIAL IV ONE (16:15)
[2023-07-19] MEDS: RIVAROXABAN 15 MG TAB PO SCH (17:06)
--- NOTE | 2023-07-19 18:58 | CA ---
Transthoracic Echo Report Name: Nika Love Age: 88 Gender: F : 1935 Exam Date: 07/19/2023 09:12 Exam Location: [place] [facility] Ht (in): 69 Wt (lb): 135 Ordering Physician: Stephanie Rodrigez MD Attending/Referring Phys: Tar Worker Katherin Guardado RDCS Procedure CPT: Indications: Preoperative clearance Cardiac Hx: Technical Quality: Fair Contrast 1: Total Dose (mL): Contrast 2: Total Dose (mL): MEASUREMENTS (Male / Female) Normal Values 2D ECHO LV Diastolic Diameter PLAX 3.0 cm 4.2 - 5.9 / 3.9 - 5.3 cm LV Systolic Diameter PLAX 1.9 cm IVS Diastolic Thickness 1.5 cm 0.6 - 1.0 / 0.6 - 0.9 cm LVPW Diastolic Thickness 1.4 cm 0.6 - 1.0 / 0.6 - 0.9 cm LV Relative Wall Thickness 1.0 RV Internal Dim ED PLAX 3.2 cm LVOT Diameter 2.0 cm LA Volume 82.1 cm??? 18 - 58 / 22 - 52 cm??? LA Volume Index 47.7 cm???/m??? 16 - 28 cm???/m??? M-MODE Aortic Root Diameter MM 3.3 cm LA Systolic Diameter MM 4.7 cm LA Ao Ratio MM 1.4 AV Cusp Separation MM 1.2 cm DOPPLER AV Peak Velocity 126.9 cm/s AV Peak Gradient 6.4 mmHg AV Mean Velocity 83.3 cm/s AV Mean Gradient 3.2 mmHg AV Velocity Time Integral 17.8 cm AI Peak Velocity 357.8 cm/s AI Peak Gradient 51.2 mmHg AI Pressure Half Time 542.7 ms LVOT Peak Velocity 91.0 cm/s LVOT Peak Gradient 3.3 mmHg LVOT Velocity Time Integral 11.2 cm LVOT Stroke Volume 35.2 cm??? LVOT Stroke Volume Index 20.1 ml/m??? LVOT Cardiac Index 2026.6 cm???/min???m??? AV Area Cont Eq vti 2.0 cm??? AV Area Cont Eq pk 2.3 cm??? MV Area PHT 3.5 cm??? Mitral E Point Velocity 72.1 cm/s Mitral A Point Velocity 49.7 cm/s Mitral E to A Ratio 1.4 MV Deceleration Time 218.6 ms MV E' Velocity 6.1 cm/s Mitral E to MV E' Ratio 11.8 TR Peak Velocity 221.5 cm/s TR Peak Gradient 19.6 mmHg Right Ventricular Systolic Press 22.8 mmHg FINDINGS Left Ventricle Moderately increased left ventricular wall thickness. Left ventricular cavity size normal. Normal left ventricular systolic function with no obvious regional wall motion abnormalities. Left ventricular ejection fraction is estimated at 55-60 %. Right Ventricle RVE. Right ventricular systolic pressure within normal limits. Right Atrium Right atrium not well visualized. Left Atrium Severely increased left atrial volume. Mildly increased left atrial area. Mitral Valve Structurally normal mitral valve. Mild mitral annular calcification. Mild-to- moderate mitral regurgitation. Aortic Valve Aortic valve sclerosis. Mild aortic regurgitation. Tricuspid Valve Structurally normal tricuspid valve. Mild tricuspid regurgitation. Pulmonic Valve Structurally normal pulmonic valve. Pericardium No pericardial effusion. Aorta Normal size aortic root and proximal ascending aorta. CONCLUSIONS Preserved LV size and systolic function ejection fraction 50-55% Biatrial enlargement RV enlargement Previewed by: Dr. Gurpreet Rmairez MD (Electronically Signed) Final Date: 19 July 2023 18:57
[2023-07-19] MEDS: SENNOSIDES-DOCUSATE SODIUM 1 EACH TAB PO SCH (21:27)
[2023-07-19] MEDS: FAMOTIDINE 20 MG TAB PO SCH (21:27)
[2023-07-20] MEDS: HYDROcodone/APAP 5-325MG 1 EACH TAB PO PRN ×4 (00:31→16:01)
[2023-07-20 08:01] VITALS: TEMP 97.6
--- NOTE | 2023-07-20 08:36 | P.DS ---
Providers Date of admission: 07/17/23 23:06 Expected date of discharge: 07/20/23 Attending physician: Shade Griffith Consults: 07/17/23 22:27 Consult Physician Stat Consulting Provider: Rachel Kirkland Consult Reason/Comments: Closed right hip fracture, mechanical fall Do you want consulting provider notified?: Yes, Notify in am 07/18/23 13:57 Consult Physician Routine Consulting Provider: Marquis Vidales Consult Reason/Comments: Preoperative clearance Do you want consulting provider notified?: Yes Primary care physician: Orlando Vance - Discharge Diagnosis(es) (1) Acute right hip pain Current Visit: Yes Status: Acute (2) Atrial fibrillation Current Visit: Yes Status: Acute (3) Hyperlipidemia Current Visit: Yes Status: Acute (4) Hypertension Current Visit: Yes Status: Acute (5) Thyroid disorder Current Visit: Yes Status: Acute (6) History of myocardial infarction Current Visit: Yes Status: Acute (7) Closed right hip fracture Current Visit: Yes Status: Acute (8) Fall Current Visit: Yes Status: Acute Hospital Course: This is a pleasant 88-year-old female who presented with right displaced femoral neck fracture status post fall. She was admitted further treatment and evaluation. She is status post right hip hemiarthroplasty with direct anterior approach. She has been able to have some mobilization with physical therapy but is ambulating and moving slowly. She does continue to have some at the surgical site and her right hip. Plan is for patient be discharged to rehabilitation facility today if cleared from a medical standpoint and approved by her insurance. Condition on day of discharge stable. Patient will be discharged to a rehabilitation facility. Patient was cleared preoperatively for surgery by Dr. Rodrigez. Patient currently denies any nausea, vomiting, fever, or chills. Patient is eating and voiding freely without difficulty. Ocampo catheter has been discontinued. Patient may shower Optifoam dressing intact. Patient may remove Optifoam dressing in 7 days and shower without a dressing at that time. Patient should refrain from driving until at least after their first follow-up appointment in the office. Patient may apply ice for comfort support over the r ight hip as needed for pain control. She may continue weightbearing as tolerated on the right lower extremity with the assistance of a walker. Recommended use of compression stockings daily. Patient will continue with anticoagulation with Xarelto. Patient will be clear for discharge but must be cleared by medicine prior to discharge. Medicine to complete the med rec prior to discharge to rehabilitation facility. [facility] has been previously reviewed. An "Opiod Start Talking" Form has been signed and placed in the patient's chart. A prescription has been written for hydrocodone 5 mg/325 mg, 1-2 tabs every 6 hours as need for acute pain, dispensed #32. Prescription has been written, signed, and placed in the patient's chart for discharge. Patient's other medical diagnoses include atrial fibrillation, hyperlipidemia, hypertension, thyroid disorder, and history of myocardial infarction. Physical Exam Hip Hemiarthroplasty: Status post surgical day number 2 Patient is examined lying in bed Patient is awake, alert, and oriented 3 Vital signs stable Good chest excursion with deep inspiration and expiration Abdomen soft nontender No signs or symptoms of DVT; no calf pain Lower extremity cuffs not currently in place bilaterally Dressing of the right hip is clean, dry, and intact; no erythema, purulence, or signs of infection Mild pain with palpation over the surgical site Full range of motion of right ankle Dorsiflexion, plantarflexion, and extensor hallucis longus positive sustained bilaterally Neurovascularly intact bilateral lower extremities Procedures: Status post right hip hemiarthroplasty for right displaced femoral neck fracture status post fall Patient Condition at Discharge: Stable Plan - Discharge Summary Discharge Rx Participant: No New Discharge Prescriptions: New HYDROcodone/APAP 5-325MG [Western 5-325] 1 - 2 tab PO Q6HR PRN #32 tab PRN Reason: Pain No Action Levothyroxine Sodium [Synthroid] 50 mcg PO DAILY atenoloL [Tenormin] 25 mg PO DAILY Simvastatin [Zocor] 20 mg PO HS Famotidine [Pepcid] 20 mg PO HS Propafenone HCl [Propafenone HCl ER] 225 mg PO BID Gabapentin [Neurontin] 300 mg PO TID #9 cap HYDROcodone/APAP 7.5-325MG [Western 7.5] 1 tab PO Q6HR PRN PRN Reason: Pain Butalb/APAP/Caff 50-325-40Mg [Fioricet 50-325-40] 1 tab PO Q6H PRN PRN Reason: Migraine Headache Cholecalciferol [Vitamin D3 (25 Mcg = 1000 Iu)] 50 mcg PO DAILY tablet Rivaroxaban [Xarelto] 15 mg PO W/SUPPER Discharge Medication List Levothyroxine Sodium [Synthroid] 50 mcg PO DAILY 12/01/13 [History] Simvastatin [Zocor] 20 mg PO HS 12/01/13 [History] atenoloL [Tenormin] 25 mg PO DAILY 12/01/13 [History] Famotidine [Pepcid] 20 mg PO HS 08/09/15 [History] Propafenone HCl [Propafenone HCl ER] 225 mg PO BID 06/01/21 [History] Cholecalciferol [Vitamin D3 (25 Mcg = 1000 Iu)] 50 mcg PO DAILY tablet 06/06/21 [Rx] Gabapentin [Neurontin] 300 mg PO TID #9 cap 06/06/21 [Rx] Butalb/APAP/Caff 50-325-40Mg [Fioricet 50-325-40] 1 tab PO Q6H PRN 07/17/23 [History] HYDROcodone/APAP 7.5-325MG [Western 7.5] 1 tab PO Q6HR PRN 07/17/23 [History] Rivaroxaban [Xarelto] 15 mg PO W/SUPPER 07/17/23 [History] HYDROcodone/APAP 5-325MG [Western 5-325] 1 - 2 tab PO Q6HR PRN #32 tab 07/18/23 [Rx] Follow up Appointment(s)/Referral(s): Orlando Vance MD [Primary Care Provider] - 1-2 days Shade Griffith DO [Doctor of Osteopathic Medicine] - 2 Weeks Activity/Diet/Wound Care/Special Instructions: Weightbearing as tolerated with walker. Leave dressing intact. Dressing may be removed by home care nurse or by patient in 7 days. Then change dressing twice daily until follow up. May shower with initial dressing intact and after removal. If dressing become saturated, please remove. Please resume Xarelto. Recommend use of compression stockings daily until follow up to help prevent swelling and blood clots. May remove at night before sleeping. Please follow-up with [facility] in 2 weeks and call with any questions or concerns, . Discharge Disposition: TRANSFER TO SNF/ECF
[2023-07-20] MEDS: atenoloL 25 MG TAB PO SCH (10:10)
[2023-07-20] MEDS: PROPAFENONE 150 MG TAB PO SCH ×2 (10:10→15:57)
--- NOTE | 2023-07-20 13:02 | P.PN ---
"Subjective Progress Note Date: 07/20/23 - Reason for Consult Preoperative clearance - History of Present Illness A 88-year-old female admitted for right hip fracture after mechanical fall does have history of coronary artery disease denied any chest pain at this time. Does have history of congestive heart failure with EF of around 40 with 50% on diuretics at home with good renal function at this time chest x-ray did show mild pulmonary edema with elevated BNP of 8480 IV fluids are being discontinued at this time patient was given a dose of Lasix. EKG did not show any acute ST-T wave changes she is in severe pain. She does have history of atrial fibrillation on anticoagulation 07/19/2022 Patient is seen in follow-up status post right hip hemiarthroplasty secondary to fall postop day 1 and is doing relatively well. Patient reports to some discomfort in the right hip and site there is some noted bruising around the surgical site with no significant swelling or tenderness on palpation. Patient working with physical therapy recommending rehab inpatient wanted to go home wit h home care although is agreeable to rehab with case management following working on discharge planning to [facility]. Patient was seen and evaluated by cardiology this morning with home meds resumed recommending continuing current regimen. Patient is currently afebrile with no reported chest pain or shortness of breath. Patient is continued on 2 L via nasal cannula and does not wear oxygen outpatient and did have a mildly elevated BNP with history of heart failure of 8480 and will give a low-dose IV Lasix today and encouraged continued incentive spirometer use and weaning FiO2 as tolerated. Patient denies chest pain or palpitations and reports to feeling somewhat anxious she does not want to return to rehab again although is willing to advance with physical therapy is suggesting. 07/20/2023 Patient is seen and evaluated in follow-up today currently sitting up in the chair on room air denies any shortness of breath. Patient is extremely anxious about having to go to rehab and wanted to stay in the hospital another day as she was attempting to try to go home although given patient's living alone and weakness would recommend rehab. PT/OT therapy evaluated the patient recommendin g rehab as well in case management following currently awaiting insurance authorization. All medications reviewed and resumed as appropriate. Patient lung sounds are clear with no crackles present. Patient using incentive spirometer and reinstructed the patient on how to properly use and instructed the patient continue using at least 10 times every hour while awake. Patient is currently afebrile with no reported chest pain or shortness of breath. Patient is tolerating diet with no reported nausea or vomiting. Patient is voiding and denies any bowel movements as of yet. Review of systems: Constitutional: No reports of fatigue, fever, or chills Cardiovascular: No reports of chest pain or palpitations Respiratory: No reports of shortness of breath or cough GI: No reports of nausea, vomiting, or diarrhea, reports passing gas with no bowel movement as of yet : No reports of dysuria or retention Neurovascular: reports of generalized weakness and right hip discomfort All medications have been reviewed PHYSICAL EXAMINATION: GENERAL: The patient is alert and oriented x3, not in any acute distress. Thin built HEENT: Pupils are round and equally reacting to light. EOMI. No scleral icterus. No conjunctival pallor. Normocephalic, atraumatic. No pharyngeal erythema. No thyromegaly. CARDIOVASCULAR: S1 and S2 present. No murmurs, rubs, or gallops. PULMONARY: Chest is clear to auscultation, no wheezing or crackles. ABDOMEN: Soft, nontender, nondistended, normoactive bowel sounds. No palpable organomegaly. MUSCULOSKELETAL: Deferred to orthopedic surgery EXTREMITIES: No cyanosis, clubbing, or pedal edema. Right hip surgical site is dry and intact with some minimal bruising noted and no significant swelling that is soft and palpable in the groin area NEUROLOGICAL: Gross neurological examination did not reveal any focal deficits. Diffusely weak SKIN: No rashes. Assessment: -Mechanical fall right hip fracture, status post right total hip arthroplasty on postop day 2 -Persistent atrial fibrillation patient will be resumed on propafenone, resume anticoagulation once cleared by surgery -Hypertension -Hyperlipidemia -Peripheral neuropathy history -DVT prophylaxis:| Resume anticoagulation once cleared by orthopedics -GI prophylaxis -Full code Plan: Patient currently sitting up in the chair on room air with no difficulty in breathing and denies any shortness of breath. Patient with incentive spirometer at the bedside encourage the patient continue using at least 10 times every hour while awake. 2-D echo was done showing moderately increased left ventricular wall thickness with normal LV systolic function with no obvious regional wall motion abnormal ities with an EF of 55-60. Patient also has biatrial and RV enlargement noted with no pericardial effusion noted. Patient was evaluated by physical therapy recommending rehab and patient is agreeable with case management following working on [facility]. Currently awaiting insurance authorization All medications reviewed and resumed as appropriate Recommend discontinuing indwelling Ocampo catheter Encouraged increased activity as tolerated with restrictions per orthopedics Patient is medically stable once cleared by orthopedics and has obtained insurance authorization for ECF We will continue to follow with orthopedics during hospitalization. Thank you kindly for this consultation. The impression and plan of care has been dictated by Anne Mendez, Nurse Practitioner as directed. Dr. Elia MD I have performed a history and examination and MDM of this patient, discussed the same with the dictator, and agree with the dictator's assessment and plan as written ,documented as a scribe. Based on total visit time, I have performed more than 50% of the visit. Objective - Vital Signs Vital signs: Vital Signs Temp 97.6 F 07/20/23 07:42 Pulse 73 07/20/23 07:42 Resp 18 07/20/23 07:42 BP 119/70 07/20/23 07:42 Pulse Ox 97 07/20/23 07:42 FiO2 Intake & Output 07/19/23 07/20/23 07/20/23 18:59 06:59 18:59 Intake Total 200 240 200 Output Total 700 Balance 200 -460 200 Intake: Oral 200 240 200 Output: Urine 700 Uretheral (Ocampo) 700 Other: Voiding Method Indwelling Catheter Indwelling Catheter # Voids 1,300 - Labs CBC & Chem 7: 07/19/23 05:57 07/17/23 17:45 Labs: Abnormal Lab Results - Last 24 Hours (Table) 07/19/23 Range/Units 05:57 WBC 12.30 H (4.50-10.00) X 10*3/uL Neutrophils # 10.05 H (1.80-7.70) X 10*3/uL Lymphocytes # 0.85 L (0.90-5.00) X 10*3/uL Monocytes # 1.30 H (0.20-1.00) X 10*3/uL Eosinophils # 0.03 L (0.04-0.35) X 10*3/uL"
[2023-07-20 15:22] VITALS: BP 100/62; PULSE 66; RESP 17
[2023-07-20] MEDS: RIVAROXABAN 15 MG TAB PO SCH (15:57)
== END 2023-07-20 17:22 | DRG 522 ==
LOC: EC 19:33 → 5NMEDONC 23:06 → OBSVTOIN 23:06 → 5NMEDONC 07-18 05:23 → 4SSUR 07-18 17:34
PROVIDERS: ADMIT Orthopaedic Surgery; ATTEND Orthopaedic Surgery
PROC: 0SRR0JA Replacement of Right Hip Joint, Femoral Surface with Synthetic Substitute, Uncemented, Open Approach (ICD-10-PCS; principal; 2023-07-18 10:40)
DX: S72.011A Unspecified intracapsular fracture of right femur, initial encounter for closed fracture (principal); I48.19 Other persistent atrial fibrillation; I50.32 Chronic diastolic (congestive) heart failure; I11.0 Hypertensive heart disease with heart failure; J44.9 Chronic obstructive pulmonary disease, unspecified; G62.9 Polyneuropathy, unspecified; E07.9 Disorder of thyroid, unspecified; E78.5 Hyperlipidemia, unspecified; I25.10 Atherosclerotic heart disease of native coronary artery without angina pectoris; W00.0XXA Fall on same level due to ice and snow, initial encounter; Z94.89 Other transplanted organ and tissue status; Z79.01 Long term (current) use of anticoagulants; Z88.0 Allergy status to penicillin; Z88.5 Allergy status to narcotic agent; I25.2 Old myocardial infarction; Z95.5 Presence of coronary angioplasty implant and graft; Z87.891 Personal history of nicotine dependence; Z79.890 Hormone replacement therapy; Z79.899 Other long term (current) drug therapy
CPT/HCPCS: 36415; 51702; 70450; 71045; 72125; 72170; 73501; 73502; 80053; 80306; 80320; 81001; 83880; 85025; 85610; 85730; 86850; 86900; 86901; 93005; 93306; 94760; 96361; 96365; 96375; 96376; 99285